=== PATIENT | female | born 1985 | race African-American/Black ===

== ENCOUNTER → 2017-12-12 08:30 | Outpatient (CLI) | payer BC, SELFPAY ==
[2017-12-12 10:36] LABS: Protein, Urine (Random) 127.7 mg/dL (<11.9); Protein:Creat Ratio 296 mg/g CRE (0-200)
== END ==
PROVIDERS: Family Provider Family Medicine; PCP Family Medicine; Visit Provider Internal Medicine Nephrology
DX: R80.9 Proteinuria, unspecified (principal)
CPT/HCPCS: 82570; 84156

== ENCOUNTER → 2017-12-12 15:54 | Outpatient (CLI) | payer BC, SELFPAY ==
[2017-12-12 18:19] LABS: Albumin, Serum 3.3 g/dL (3.2-5.0); BUN 15 mg/dL (7-18); BUN/Creat Ratio 15.5 RATIO (10-20); Calcium,Total 8.3 mg/dL (8.5-10.1); Chloride 114 mmol/L (98-107); Creatinine, Serum 0.97 mg/dL (0.55-1.02); EST Glomerular Filtration Rate 72 mL/min (>60); Est Glom Filt Rate - Afr Amer 87 mL/min (>60); Glucose 88 mg/dL (74-106); Phosphorus 2.9 mg/dL (2.5-4.9); Potassium 3.9 mmol/L (3.5-5.1); Sodium Level 142 mmol/L (136-145)
== END ==
PROVIDERS: Family Provider Family Medicine; PCP Family Medicine; Visit Provider Internal Medicine Nephrology
DX: R80.9 Proteinuria, unspecified (principal)
CPT/HCPCS: 36415; 80069

== ENCOUNTER → 2017-12-13 12:18 | Outpatient (CLI) | payer BC, SELFPAY ==
[2017-12-13 13:19] LABS: Absolute Lymphocyte Count 0.85 X10^3/ul (0.83-4.51); Absolute Neutrophil Count 2.1 X10^3/uL (2.0-7.7); Basophil# 0.01 X10^3/uL; Basophil% 0.3 % (0-1); Eosinophil# 0.16 X10^3/uL; Eosinophils% 4.6 % (0-5); Hematocrit 34.5 % (37-47); Hemoglobin 10.7 g/dl (12.0-15.0); Lymphocyte # 0.85 X10^3/ul (4.0); Lymphocyte % 24.4 % (19-41); Mean Corpuscular Hgb 23.7 pg (27.0-32.0); Mean Corpuscular Volume 76.3 fL (81-99); Mean Platelet Vol. 10.3 fl (6.2-12.0); Monocyte# 0.37 X10^3/uL; Monocyte% 10.6 % (0-10); Neutrophil # 2.09 X10^3/uL (2.7-7.7); Neutrophil % 59.8 % (47-70); Platelet Count 408 K/mm3 (150-450); RBC Distribution Width CV 17.1 % (11.6-14.6); RBC Distribution Width SD 47.3 fl (35.1-43.9); Red Blood Count 4.52 M/mm3 (4.2-5.4); White Blood Count 3.5 K/mm3 (4.4-11.0)
[2017-12-13 13:29] LABS: POSITIVE COUNT NO; POSITIVE DIFFERENTIAL NO; POSITIVE MORPHOLOGY NO
== END ==
PROVIDERS: Family Provider Family Medicine; PCP Family Medicine; Visit Provider Internal Medicine Nephrology
DX: R53.83 Other fatigue (principal)
CPT/HCPCS: 36415; 85025

== ENCOUNTER → 2018-02-06 07:30 | Outpatient (CLI) | payer BC, SELFPAY ==
[2018-02-06 10:06] LABS: Hematocrit 32.9 % (37-47); Hemoglobin 10.1 g/dl (12.0-15.0); Mean Corp Hgb Conc 30.7 g/gl (32-36); Mean Corpuscular Hgb 23.3 pg (27.0-32.0); Mean Corpuscular Volume 75.8 fL (81-99); Mean Platelet Vol. 10.4 fl (6.2-12.0); Platelet Count 465 K/mm3 (150-450); RBC Distribution Width CV 15.6 % (11.6-14.6); RBC Distribution Width SD 43.7 fl (35.1-43.9); Red Blood Count 4.34 M/mm3 (4.2-5.4)
[2018-02-06 10:12] LABS: Scan Indicated on CBC? Y/N NO
[2018-02-06 10:19] LABS: Protein, Urine (Random) 136.3 mg/dL (<11.9); Protein:Creat Ratio 863 mg/g CRE (0-200)
[2018-02-06 10:24] LABS: Albumin, Serum 3.5 g/dL (3.2-5.0); BUN 20 mg/dL (7-18); Calcium,Total 8.4 mg/dL (8.5-10.1); Chloride 111 mmol/L (98-107); Creatinine, Serum 0.95 mg/dL (0.55-1.02); EST Glomerular Filtration Rate 73 mL/min (>60); Est Glom Filt Rate - Afr Amer 88 mL/min (>60); Ferritin 70 ng/mL (8-252); Glucose 78 mg/dL (74-106); Iron 66 ug/dL (50-170); Iron Binding Capacity,Total 212 ug/dL (250-450); PERCENT IRON SATURATION 31.1 % (15.0-55.0); Potassium 4.3 mmol/L (3.5-5.1); Sodium Level 141 mmol/L (136-145)
[2018-02-07 11:51] LABS: Complement C3 102 mg/dL (82-167)
[2018-02-08 13:43] LABS: ANTINUCLEAR ANTIBODIES DIRECT Positive (Negative); Anti-dsDNA Ab 184 IU/mL (0-9)
== END ==
PROVIDERS: Family Provider Family Medicine; PCP Family Medicine; Visit Provider Internal Medicine Nephrology
DX: M32.14 Glomerular disease in systemic lupus erythematosus (principal); R80.9 Proteinuria, unspecified; D63.8 Anemia in other chronic diseases classified elsewhere
CPT/HCPCS: 36415; 80069; 82570; 82728; 83540; 83550; 84156; 85027; 86038; 86160; 86225

== ENCOUNTER → 2018-02-24 13:08 | Outpatient (CLI) | payer BC, SELFPAY ==
[2018-02-24 14:11] LABS: Absolute Lymphocyte Count 0.62 X10^3/ul (0.83-4.51); Absolute Neutrophil Count 3.9 X10^3/uL (2.0-7.7); Basophil# 0.01 X10^3/uL; Basophil% 0.2 % (0-1); Eosinophil# 0.08 X10^3/uL; Eosinophils% 1.6 % (0-5); Hematocrit 29.3 % (37-47); Hemoglobin 9.2 g/dl (12.0-15.0); Lymphocyte # 0.62 X10^3/ul (4.0); Lymphocyte % 12.1 % (19-41); Mean Corp Hgb Conc 31.4 g/gl (32-36); Mean Corpuscular Hgb 24.2 pg (27.0-32.0); Mean Corpuscular Volume 77.1 fL (81-99); Mean Platelet Vol. 11.3 fl (6.2-12.0); Monocyte% 9.8 % (0-10); Neutrophil % 76.1 % (47-70); POSITIVE COUNT NO; POSITIVE DIFFERENTIAL NO; POSITIVE MORPHOLOGY NO; Platelet Count 358 K/mm3 (150-450); Protein, Urine (Random) 73.4 mg/dL (<11.9); Protein:Creat Ratio 322 mg/g CRE (0-200); RBC Distribution Width CV 15.2 % (11.6-14.6); RBC Distribution Width SD 41.4 fl (35.1-43.9); White Blood Count 5.1 K/mm3 (4.4-11.0)
[2018-02-24 14:36] LABS: ALB/GLOB Ratio 0.8 RATIO (0.9-2.4); AST(SGOT) 11 U/L (15-37); Alanine Aminotransfer ALT/SGPT 10 U/L (13-56); Albumin, Serum 3.3 g/dL (3.2-5.0); Alkaline Phosphatase 74 U/L (45-117); Anion Gap 8 (5-15); BUN 14 mg/dL (7-18); BUN/Creat Ratio 11.2 RATIO (10-20); Chloride 107 mmol/L (98-107); Creatinine, Serum 1.25 mg/dL (0.55-1.02); EST Glomerular Filtration Rate 53 mL/min (>60); Est Glom Filt Rate - Afr Amer 64 mL/min (>60); Globulin 3.9 g/dL (2.2-4.2); Glucose 79 mg/dL (74-106); Potassium 4.4 mmol/L (3.5-5.1); Protein, Total 7.2 g/dL (6.4-8.2); Sodium Level 138 mmol/L (136-145)
[2018-02-24 14:43] LABS: Vitamin D,25 Hydroxy 35.5 ng/mL (29.95-100.01)
[2018-02-25 13:08] LABS: Complement C3 89 mg/dL (82-167)
[2018-02-28 11:25] LABS: Anti-dsDNA Ab 167 IU/mL (0-9)
== END ==
PROVIDERS: Family Provider Family Medicine; PCP Family Medicine; Visit Provider Internal Medicine Rheumatology
DX: M32.9 Systemic lupus erythematosus, unspecified (principal); Z79.52 Long term (current) use of systemic steroids; E55.9 Vitamin D deficiency, unspecified; I10 Essential (primary) hypertension
CPT/HCPCS: 36415; 80053; 82306; 82570; 84156; 85025; 86160; 86225

== ENCOUNTER → 2018-02-27 07:51 | Outpatient (CLI) | payer BC, SELFPAY ==
[2018-02-27 10:17] LABS: Ferritin 86 ng/mL (8-252); Iron 35 ug/dL (50-170); Iron Binding Capacity,Total 192 ug/dL (250-450); LDH 182 U/L (84-246); PERCENT IRON SATURATION 18.2 % (15.0-55.0)
== END ==
PROVIDERS: Family Provider Family Medicine; PCP Family Medicine; Visit Provider Internal Medicine Rheumatology
DX: M32.9 Systemic lupus erythematosus, unspecified (principal); I10 Essential (primary) hypertension; Z79.52 Long term (current) use of systemic steroids
CPT/HCPCS: 36415; 82728; 83540; 83550; 83615; 86880

== ENCOUNTER → 2018-05-29 16:36 | Outpatient (CLI) | payer BC, SELFPAY ==
[2018-05-29 14:49] LABS: Color, Urine Yellow (Yellow); Glucose, Dipstick Normal (Normal); Ketone-Dipstick Negative (Negative); Leukocyte Esterase-Dipstick 25 /ul (Negative); Nitrite-Dipstick Negative (Negative); Occult Blood-Urine 250 /ul (Negative); Protein-Dipstick 100 mg/dl (Negative); Urine Bilirubin Dipstick Negative (Negative); Urine Clarity Sl. Cloudy (Clear); Urine Urobilinogen Normal (Normal)
[2018-05-29 14:51] LABS: Absolute Lymphocyte Count 0.77 X10^3/ul (0.83-4.51); Absolute Neutrophil Count 1.9 X10^3/uL (2.0-7.7); Eosinophil# 0.14 X10^3/uL; Eosinophils% 4.5 % (0-5); Hematocrit 30.3 % (37-47); Hemoglobin 9.5 g/dl (12.0-15.0); Lymphocyte # 0.77 X10^3/ul (4.0); Lymphocyte % 24.5 % (19-41); Mean Corp Hgb Conc 31.4 g/gl (32-36); Mean Corpuscular Hgb 24.5 pg (27.0-32.0); Mean Corpuscular Volume 78.1 fL (81-99); Mean Platelet Vol. 10.7 fl (6.2-12.0); Monocyte# 0.38 X10^3/uL; Monocyte% 12.1 % (0-10); Neutrophil # 1.85 X10^3/uL (2.7-7.7); Neutrophil % 58.9 % (47-70); Platelet Count 375 K/mm3 (150-450); RBC Distribution Width CV 15.3 % (11.6-14.6); RBC Distribution Width SD 43.2 fl (35.1-43.9); Red Blood Count 3.88 M/mm3 (4.2-5.4); White Blood Count 3.1 K/mm3 (4.4-11.0)
[2018-05-29 14:55] LABS: POSITIVE COUNT NO; POSITIVE DIFFERENTIAL NO; POSITIVE MORPHOLOGY NO
[2018-05-29 15:00] LABS: Protein, Urine (Random) 147.7 mg/dL (<11.9); Protein:Creat Ratio 777 mg/g CRE (0-200)
[2018-05-29 15:02] LABS: ALB/GLOB Ratio 0.8 RATIO (0.9-2.4); AST(SGOT) 10 U/L (15-37); Alanine Aminotransfer ALT/SGPT 11 U/L (13-56); Albumin, Serum 3.1 g/dL (3.2-5.0); Alkaline Phosphatase 66 U/L (45-117); Anion Gap 7 (5-15); BUN 7 mg/dL (7-18); BUN/Creat Ratio 8.7 RATIO (10-20); Calcium,Total 8.3 mg/dL (8.5-10.1); Chloride 112 mmol/L (98-107); Creatinine, Serum 0.81 mg/dL (0.55-1.02); EST Glomerular Filtration Rate 88 mL/min (>60); Est Glom Filt Rate - Afr Amer 107 mL/min (>60); Globulin 3.8 g/dL (2.2-4.2); Glucose 82 mg/dL (74-106); Phosphorus 2.6 mg/dL (2.5-4.9); Protein, Total 6.9 g/dL (6.4-8.2); Sodium Level 142 mmol/L (136-145)
[2018-05-31 11:14] LABS: Anti-dsDNA Ab 153 IU/mL (0-9)
[2018-05-31 12:49] LABS: Complement C3 84 mg/dL (82-167)
== END ==
PROVIDERS: Family Provider Family Medicine; PCP Family Medicine; Visit Provider Internal Medicine Nephrology
DX: M32.14 Glomerular disease in systemic lupus erythematosus (principal); M32.9 Systemic lupus erythematosus, unspecified; I10 Essential (primary) hypertension; Z79.52 Long term (current) use of systemic steroids
CPT/HCPCS: 36415; 80053; 81002; 82570; 84100; 84156; 85025; 86160; 86225

== ENCOUNTER → 2018-08-15 14:06 | Outpatient (CLI) | payer BC, SELFPAY ==
[2018-08-15 15:37] LABS: Absolute Lymphocyte Count 0.62 X10^3/ul (0.83-4.51); Absolute Neutrophil Count 2.4 X10^3/uL (2.0-7.7); Basophil# 0.01 X10^3/uL; Basophil% 0.3 % (0-1); Eosinophil# 0.09 X10^3/uL; Eosinophils% 2.4 % (0-5); Hematocrit 33.5 % (37-47); Hemoglobin 10.2 g/dl (12.0-15.0); Lymphocyte # 0.62 X10^3/ul (4.0); Lymphocyte % 16.8 % (19-41); Mean Corp Hgb Conc 30.4 g/gl (32-36); Mean Corpuscular Volume 78.8 fL (81-99); Mean Platelet Vol. 10.6 fl (6.2-12.0); Monocyte# 0.56 X10^3/uL; Monocyte% 15.2 % (0-10); Neutrophil % 65.3 % (47-70); Platelet Count 373 K/mm3 (150-450); RBC Distribution Width CV 15.3 % (11.6-14.6); RBC Distribution Width SD 44.2 fl (35.1-43.9); Red Blood Count 4.25 M/mm3 (4.2-5.4); White Blood Count 3.7 K/mm3 (4.4-11.0)
[2018-08-15 15:43] LABS: POSITIVE COUNT NO; POSITIVE DIFFERENTIAL NO; POSITIVE MORPHOLOGY NO
[2018-08-15 15:53] LABS: ALB/GLOB Ratio 0.8 RATIO (0.9-2.4); AST(SGOT) 10 U/L (15-37); Alanine Aminotransfer ALT/SGPT 11 U/L (13-56); Albumin, Serum 3.2 g/dL (3.2-5.0); Alkaline Phosphatase 76 U/L (45-117); Anion Gap 6 (5-15); BUN 11 mg/dL (7-18); Calcium,Total 8.6 mg/dL (8.5-10.1); Chloride 110 mmol/L (98-107); Creatinine, Serum 0.84 mg/dL (0.55-1.02); EST Glomerular Filtration Rate 84 mL/min (>60); Est Glom Filt Rate - Afr Amer 101 mL/min (>60); Globulin 4.2 g/dL (2.2-4.2); Glucose 73 mg/dL (74-106); Potassium 3.8 mmol/L (3.5-5.1); Protein, Total 7.4 g/dL (6.4-8.2); Sodium Level 142 mmol/L (136-145)
[2018-08-15 16:01] LABS: Color, Urine Yellow (Yellow); Glucose, Dipstick Normal (Normal); Ketone-Dipstick 5 mg/dl (Negative); Leukocyte Esterase-Dipstick 25 /ul (Negative); Nitrite-Dipstick Negative (Negative); Occult Blood-Urine 25 /ul (Negative); Protein-Dipstick 100 mg/dl (Negative); Specific Gravity, Urine 1.025 (1.002-1.030); Urine Bilirubin Dipstick Negative (Negative); Urine Clarity Clear (Clear); Urine Urobilinogen Normal (Normal)
[2018-08-15 16:43] LABS: Protein, Urine (Random) 223.4 mg/dL (<11.9); Protein:Creat Ratio 757 mg/g CRE (0-200)
[2018-08-18 15:06] LABS: Complement C3 92 mg/dL (82-167)
[2018-08-18 16:28] LABS: Anti-dsDNA Ab 170 IU/mL (0-9)
== END ==
PROVIDERS: Family Provider Family Medicine; PCP Family Medicine; Referring Provider Internal Medicine Rheumatology; Visit Provider Internal Medicine Rheumatology
DX: M32.9 Systemic lupus erythematosus, unspecified (principal); I10 Essential (primary) hypertension; Z79.52 Long term (current) use of systemic steroids
CPT/HCPCS: 36415; 80053; 81002; 82570; 84156; 85025; 86160; 86225

== ENCOUNTER → 2018-10-23 13:02 | Outpatient (CLI) | payer BC, SELFPAY ==
[2018-10-23 14:29] LABS: Protein, Urine (Random) 53.9 mg/dL (<11.9); Protein:Creat Ratio 268 mg/g CRE (0-200)
[2018-10-23 14:46] LABS: Hematocrit 29.9 % (37-47); Hemoglobin 9.3 g/dl (12.0-15.0); Mean Corp Hgb Conc 31.1 g/gl (32-36); Mean Corpuscular Hgb 24.5 pg (27.0-32.0); Mean Corpuscular Volume 78.7 fL (81-99); Mean Platelet Vol. 10.8 fl (6.2-12.0); Platelet Count 389 K/mm3 (150-450); RBC Distribution Width CV 16.3 % (11.6-14.6); RBC Distribution Width SD 45.1 fl (35.1-43.9); White Blood Count 3.9 K/mm3 (4.4-11.0)
[2018-10-23 14:47] LABS: Scan Indicated on CBC? Y/N NO
[2018-10-23 15:00] LABS: Albumin, Serum 3.3 g/dL (3.2-5.0); BUN 14 mg/dL (7-18); BUN/Creat Ratio 17.7 RATIO (10-20); Calcium,Total 8.3 mg/dL (8.5-10.1); Chloride 106 mmol/L (98-107); Creatinine, Serum 0.79 mg/dL (0.55-1.02); EST Glomerular Filtration Rate 90 mL/min (>60); Est Glom Filt Rate - Afr Amer 109 mL/min (>60); Ferritin 70 ng/mL (8-252); Glucose 81 mg/dL (74-106); Iron 46 ug/dL (50-170); Iron Binding Capacity,Total 211 ug/dL (250-450); PERCENT IRON SATURATION 21.8 % (15.0-55.0); Phosphorus 3.7 mg/dL (2.5-4.9); Potassium 4.1 mmol/L (3.5-5.1); Sodium Level 140 mmol/L (136-145)
[2018-10-23 15:22] LABS: Vitamin D,25 Hydroxy 36.7 ng/mL (29.95-100.01)
[2018-10-25 14:24] LABS: Anti-dsDNA Ab 186 IU/mL (0-9)
== END ==
PROVIDERS: Family Provider Family Medicine; PCP Family Medicine; Referring Provider Internal Medicine Nephrology; Visit Provider Internal Medicine Nephrology
DX: M32.14 Glomerular disease in systemic lupus erythematosus (principal); E55.9 Vitamin D deficiency, unspecified; D63.8 Anemia in other chronic diseases classified elsewhere
CPT/HCPCS: 36415; 80069; 82306; 82570; 82728; 83540; 83550; 84156; 85027; 86225

== ENCOUNTER → 2018-12-11 16:17 | Outpatient (CLI) | payer BC, SELFPAY ==
[2018-12-11 17:43] LABS: Absolute Lymphocyte Count 0.86 X10^3/ul (0.83-4.51); Basophil# 0.02 X10^3/uL; Basophil% 0.5 % (0-1); Eosinophil# 0.04 X10^3/uL; Hematocrit 35.2 % (37-47); Hemoglobin 10.6 g/dl (12.0-15.0); Lymphocyte # 0.86 X10^3/ul (4.0); Lymphocyte % 20.7 % (19-41); Mean Corp Hgb Conc 30.1 g/gl (32-36); Mean Corpuscular Volume 79.8 fL (81-99); Mean Platelet Vol. 10.2 fl (6.2-12.0); Monocyte# 0.27 X10^3/uL; Monocyte% 6.5 % (0-10); Neutrophil # 2.96 X10^3/uL (2.7-7.7); Neutrophil % 71.1 % (47-70); Platelet Count 385 K/mm3 (150-450); RBC Distribution Width CV 15.5 % (11.6-14.6); Red Blood Count 4.41 M/mm3 (4.2-5.4); White Blood Count 4.2 K/mm3 (4.4-11.0)
[2018-12-11 17:46] LABS: POSITIVE COUNT NO; POSITIVE DIFFERENTIAL NO; POSITIVE MORPHOLOGY NO
[2018-12-11 17:56] LABS: Color, Urine Yellow (Yellow); Glucose, Dipstick Normal (Normal); Ketone-Dipstick 5 mg/dl (Negative); Leukocyte Esterase-Dipstick 100 /ul (Negative); Nitrite-Dipstick Negative (Negative); Occult Blood-Urine 150 /ul (Negative); Protein-Dipstick 500 mg/dl (Negative); Specific Gravity, Urine 1.025 (1.002-1.030); Urine Bilirubin Dipstick Negative (Negative); Urine Clarity Clear (Clear); Urine Urobilinogen Normal (Normal)
[2018-12-11 17:58] LABS: Vitamin D,25 Hydroxy 39.4 ng/mL (29.95-100.01)
[2018-12-11 18:01] LABS: ALB/GLOB Ratio 0.8 RATIO (0.9-2.4); AST(SGOT) 9 U/L (15-37); Alanine Aminotransfer ALT/SGPT 13 U/L (13-56); Albumin, Serum 3.6 g/dL (3.2-5.0); Alkaline Phosphatase 76 U/L (45-117); Anion Gap 9 (5-15); BUN 11 mg/dL (7-18); BUN/Creat Ratio 13.7 RATIO (10-20); Calcium,Total 8.5 mg/dL (8.5-10.1); Chloride 108 mmol/L (98-107); EST Glomerular Filtration Rate 89 mL/min (>60); Est Glom Filt Rate - Afr Amer 107 mL/min (>60); Globulin 4.5 g/dL (2.2-4.2); Glucose 83 mg/dL (74-106); Potassium 3.9 mmol/L (3.5-5.1); Protein, Total 8.1 g/dL (6.4-8.2); Protein, Urine (Random) 483.1 mg/dL (<11.9); Protein:Creat Ratio 1579 mg/g CRE (0-200); Sodium Level 140 mmol/L (136-145)
[2018-12-13 10:30] LABS: Complement C3 95 mg/dL (82-167)
[2018-12-14 08:53] LABS: Anti-dsDNA Ab 171 IU/mL (0-9)
== END ==
PROVIDERS: Family Provider Family Medicine; PCP Family Medicine; Referring Provider Internal Medicine Rheumatology; Visit Provider Internal Medicine Rheumatology
DX: M32.9 Systemic lupus erythematosus, unspecified (principal); I10 Essential (primary) hypertension; Z79.52 Long term (current) use of systemic steroids
CPT/HCPCS: 36415; 80053; 81002; 82306; 82570; 84156; 85025; 86160; 86225

== ENCOUNTER → 2018-12-20 16:24 | Outpatient (CLI) | payer BC, SELFPAY ==
[2018-05-29 14:04] VITALS: BMI 29.2
[2018-12-20 17:55] LABS: Protein, Urine (Random) 58.8 mg/dL (<11.9); Protein:Creat Ratio 206 mg/g CRE (0-200)
== END ==
PROVIDERS: Family Provider Family Medicine; PCP Family Medicine; Referring Provider Internal Medicine Nephrology; Visit Provider Internal Medicine Nephrology
DX: M32.14 Glomerular disease in systemic lupus erythematosus (principal)
CPT/HCPCS: 82570; 84156

== ENCOUNTER → 2019-01-19 16:41 | Outpatient (CLI) | payer BC, SELFPAY ==
[2019-01-19 18:37] LABS: Protein, Urine (Random) 100.3 mg/dL (<11.9); Protein:Creat Ratio 310 mg/g CRE (0-200)
== END ==
PROVIDERS: Family Provider Family Medicine; PCP Family Medicine; Referring Provider Internal Medicine Nephrology; Visit Provider Internal Medicine Nephrology
DX: M32.14 Glomerular disease in systemic lupus erythematosus (principal); D50.9 Iron deficiency anemia, unspecified
CPT/HCPCS: 36415; 82570; 84156

== ENCOUNTER → 2019-01-24 13:05 | Outpatient (CLI) | payer BC, SELFPAY ==
[2019-01-26 13:24] LABS: HPV Reflexed? NOT INDICATED
== END ==
PROVIDERS: PCP Family Medicine; Visit Provider Obstetrics & Gynecology
DX: Z12.4 Encounter for screening for malignant neoplasm of cervix (principal)
CPT/HCPCS: 88175; G0145

== ENCOUNTER → 2019-01-30 07:59 | Outpatient (CLI) | payer BC, SELFPAY ==
[2018-05-29 14:04] VITALS: BMI 29.2
[2019-01-30 10:19] LABS: Protein, Urine (Random) 71.2 mg/dL (<11.9); Protein:Creat Ratio 437 mg/g CRE (0-200)
[2019-01-30 10:25] LABS: Hematocrit 31.3 % (37-47); Hemoglobin 9.8 g/dl (12.0-15.0); Mean Corp Hgb Conc 31.3 g/gl (32-36); Mean Corpuscular Hgb 24.6 pg (27.0-32.0); Mean Corpuscular Volume 78.6 fL (81-99); Mean Platelet Vol. 10.9 fl (6.2-12.0); Platelet Count 328 K/mm3 (150-450); RBC Distribution Width CV 14.8 % (11.6-14.6); RBC Distribution Width SD 40.6 fl (35.1-43.9); Red Blood Count 3.98 M/mm3 (4.2-5.4); White Blood Count 3.6 K/mm3 (4.4-11.0)
[2019-01-30 10:28] LABS: Scan Indicated on CBC? Y/N NO
[2019-01-30 10:42] LABS: Albumin, Serum 3.2 g/dL (3.2-5.0); BUN 13 mg/dL (7-18); BUN/Creat Ratio 16.5 RATIO (10-20); Calcium,Total 8.4 mg/dL (8.5-10.1); Chloride 111 mmol/L (98-107); Creatinine, Serum 0.79 mg/dL (0.55-1.02); EST Glomerular Filtration Rate 90 mL/min (>60); Est Glom Filt Rate - Afr Amer 109 mL/min (>60); Ferritin 38 ng/mL (8-252); Glucose 88 mg/dL (74-106); Iron 57 ug/dL (50-170); Iron Binding Capacity,Total 240 ug/dL (250-450); PERCENT IRON SATURATION 23.8 % (15.0-55.0); Phosphorus 2.9 mg/dL (2.5-4.9); Potassium 3.8 mmol/L (3.5-5.1); Sodium Level 140 mmol/L (136-145)
[2019-01-31 15:18] LABS: Anti-dsDNA Ab 135 IU/mL (0-9)
== END ==
PROVIDERS: Family Provider Family Medicine; PCP Family Medicine; Referring Provider Internal Medicine Nephrology; Visit Provider Internal Medicine Nephrology
DX: M32.14 Glomerular disease in systemic lupus erythematosus (principal); D50.9 Iron deficiency anemia, unspecified
CPT/HCPCS: 36415; 80069; 82570; 82728; 83540; 83550; 84156; 85027; 86225

== ENCOUNTER → 2019-02-16 07:52 | Outpatient (CLI) | payer BC, SELFPAY ==
[2019-02-16 08:01] VITALS: BP 134/92; PULSE 67; RESP 16; TEMP 36.9; O2SAT 100; BMI 26.4
[2019-02-16 08:13] VITALS: BMI 26.4
== END ==
PROVIDERS: Family Provider Family Medicine; PCP Family Medicine; Referring Provider Internal Medicine Nephrology; Visit Provider Internal Medicine Nephrology
DX: D64.9 Anemia, unspecified (principal)
CPT/HCPCS: 96365; J1756; J7050; A4216

== ENCOUNTER → 2019-02-19 07:57 | Outpatient (CLI) | payer BC, SELFPAY ==
[2019-02-16 08:13] VITALS: BMI 26.4
[2019-02-19 08:08] VITALS: BP 118/69; PULSE 104; RESP 16; TEMP 36.6; O2SAT 100; BMI 26.4
== END ==
PROVIDERS: Family Provider Family Medicine; PCP Family Medicine; Referring Provider Internal Medicine Nephrology; Visit Provider Internal Medicine Nephrology
DX: D64.9 Anemia, unspecified (principal)
CPT/HCPCS: 96365; J1756; J7050; A4216

== ENCOUNTER → 2019-03-01 07:55 | Outpatient (CLI) | payer BC, SELFPAY ==
[2019-02-16 08:13] VITALS: BMI 26.4
[2019-02-19 08:08] VITALS: BMI 26.4
[2019-03-01 08:18] VITALS: BP 109/70; PULSE 80; RESP 16; TEMP 37.2; O2SAT 100; BMI 26.4
== END ==
PROVIDERS: Family Provider Family Medicine; PCP Family Medicine; Referring Provider Internal Medicine Nephrology; Visit Provider Internal Medicine Nephrology
DX: D64.9 Anemia, unspecified (principal)
CPT/HCPCS: 96365; J1756; J7050

== ENCOUNTER → 2019-04-04 16:15 | Outpatient (CLI) | payer BC, SELFPAY ==
[2019-03-01 08:18] VITALS: BMI 26.4
[2019-04-04 18:25] LABS: Color, Urine Yellow (Yellow); Glucose, Dipstick Normal (Normal); Ketone-Dipstick 5 mg/dl (Negative); Leukocyte Esterase-Dipstick 25 /ul (Negative); Nitrite-Dipstick Negative (Negative); Occult Blood-Urine 25 /ul (Negative); Protein-Dipstick 100 mg/dl (Negative); Urine Clarity Sl. Cloudy (Clear); Urine Urobilinogen 1 mg/dl (Normal)
[2019-04-04 18:26] LABS: Absolute Neutrophil Count 2.8 X10^3/uL (2.0-7.7); Basophil# 0.03 X10^3/uL; Basophil% 0.8 % (0-1); Eosinophil# 0.12 X10^3/uL; Hematocrit 34.2 % (37-47); Hemoglobin 10.5 g/dl (12.0-15.0); Lymphocyte % 15.2 % (19-41); Mean Corp Hgb Conc 30.7 g/gl (32-36); Mean Corpuscular Hgb 24.7 pg (27.0-32.0); Mean Corpuscular Volume 80.5 fL (81-99); Mean Platelet Vol. 9.9 fl (6.2-12.0); Monocyte# 0.42 X10^3/uL; Monocyte% 10.7 % (0-10); Neutrophil # 2.77 X10^3/uL (2.7-7.7); Neutrophil % 70.3 % (47-70); Platelet Count 352 K/mm3 (150-450); RBC Distribution Width SD 46.8 fl (35.1-43.9); Red Blood Count 4.25 M/mm3 (4.2-5.4); White Blood Count 3.9 K/mm3 (4.4-11.0)
[2019-04-04 18:27] LABS: Differential Indicated SCAN CRITERIA MET; POSITIVE COUNT NO; POSITIVE DIFFERENTIAL YES; POSITIVE MORPHOLOGY NO
[2019-04-04 18:28] LABS: Urine Bilirubin Dipstick 1 mg/dL (Negative)
[2019-04-04 18:38] LABS: ALB/GLOB Ratio 0.8 RATIO (0.9-2.4); AST(SGOT) 13 U/L (15-37); Alanine Aminotransfer ALT/SGPT 15 U/L (13-56); Albumin, Serum 3.2 g/dL (3.2-5.0); Alkaline Phosphatase 80 U/L (45-117); Anion Gap 6 (5-15); BUN 15 mg/dL (7-18); Calcium,Total 8.4 mg/dL (8.5-10.1); Chloride 114 mmol/L (98-107); Creatinine, Serum 1.07 mg/dL (0.55-1.02); EST Glomerular Filtration Rate 63 mL/min (>60); Est Glom Filt Rate - Afr Amer 77 mL/min (>60); Globulin 4.1 g/dL (2.2-4.2); Glucose 72 mg/dL (74-106); Phosphorus 1.6 mg/dL (2.5-4.9); Protein, Total 7.3 g/dL (6.4-8.2); Sodium Level 145 mmol/L (136-145)
[2019-04-04 19:16] LABS: Protein, Urine (Random) 149.9 mg/dL (<11.9); Protein:Creat Ratio 456 mg/g CRE (0-200)
[2019-04-04 19:23] LABS: Differential Comment SCANNED
[2019-04-06 11:14] LABS: Complement C3 89 mg/dL (82-167)
[2019-04-06 12:32] LABS: Anti-dsDNA Ab 129 IU/mL (0-9)
== END ==
PROVIDERS: Family Provider Family Medicine; PCP Family Medicine; Referring Provider Internal Medicine Nephrology; Visit Provider Internal Medicine Nephrology
DX: M32.14 Glomerular disease in systemic lupus erythematosus (principal); R80.9 Proteinuria, unspecified; M32.9 Systemic lupus erythematosus, unspecified; I10 Essential (primary) hypertension; Z79.52 Long term (current) use of systemic steroids
CPT/HCPCS: 36415; 80053; 81002; 82570; 84100; 84156; 85025; 86160; 86225

== ENCOUNTER → 2019-05-29 14:30 | Outpatient (CLI) | payer BC, SELFPAY ==
[2019-03-01 08:18] VITALS: BMI 26.4
[2019-05-29 17:31] LABS: Hematocrit 31.5 % (37-47); Hemoglobin 9.9 g/dL (12.0-15.0); Mean Corp Hgb Conc 31.4 g/dL (32-36); Mean Corpuscular Hgb 25.8 pg (27.0-32.0); Mean Corpuscular Volume 82.2 fL (81-99); Mean Platelet Vol. 10.3 fl (6.2-12.0); Platelet Count 307 K/mm3 (150-450); RBC Distribution Width CV 14.6 % (11.6-14.6); RBC Distribution Width SD 43.3 fl (35.1-43.9); Red Blood Count 3.83 M/mm3 (4.2-5.4); White Blood Count 3.8 K/mm3 (4.4-11.0)
[2019-05-29 18:00] LABS: Protein, Urine (Random) 19.5 mg/dL (<11.9); Protein:Creat Ratio 107 mg/g CRE (0-200)
[2019-05-29 18:03] LABS: Vitamin D,25 Hydroxy 33.6 ng/mL (29.95-100.01)
[2019-05-29 18:07] LABS: Albumin, Serum 3.3 g/dL (3.2-5.0); BUN 22 mg/dL (7-18); BUN/Creat Ratio 16.5 RATIO (10-20); Calcium,Total 8.3 mg/dL (8.5-10.1); Chloride 106 mmol/L (98-107); Creatinine, Serum 1.33 mg/dL (0.55-1.02); EST Glomerular Filtration Rate 49 mL/min (>60); Est Glom Filt Rate - Afr Amer 59 mL/min (>60); Ferritin 209 ng/mL (8-252); Glucose 72 mg/dL (74-106); Iron 54 ug/dL (50-170); Iron Binding Capacity,Total 184 ug/dL (250-450); PERCENT IRON SATURATION 29.3 % (15.0-55.0); Phosphorus 2.8 mg/dL (2.5-4.9); Potassium 3.8 mmol/L (3.5-5.1); Sodium Level 137 mmol/L (136-145)
== END ==
PROVIDERS: Family Provider Family Medicine; PCP Family Medicine; Referring Provider Internal Medicine Nephrology; Visit Provider Internal Medicine Nephrology
DX: M32.14 Glomerular disease in systemic lupus erythematosus (principal); D50.9 Iron deficiency anemia, unspecified; E55.9 Vitamin D deficiency, unspecified; R80.9 Proteinuria, unspecified
CPT/HCPCS: 36415; 80069; 82306; 82570; 82728; 83540; 83550; 84156; 85027

== ENCOUNTER → 2019-07-23 14:19 | Outpatient (CLI) | payer BC, SELFPAY ==
[2019-03-01 08:18] VITALS: BMI 26.4
[2019-07-23 17:26] LABS: Absolute Lymphocyte Count 0.71 X10^3/uL (0.83-4.51); Absolute Neutrophil Count 2.6 X10^3/uL (2.0-7.7); Basophil# 0.02 X10^3/uL; Basophil% 0.5 % (0-1); Eosinophil# 0.05 X10^3/uL; Eosinophils% 1.4 % (0-5); Hematocrit 30.8 % (37-47); Hemoglobin 9.4 g/dL (12.0-15.0); Lymphocyte # 0.71 X10^3/ul (4.0); Lymphocyte % 19.2 % (19-41); Mean Corp Hgb Conc 30.5 g/dL (32-36); Mean Corpuscular Hgb 25.1 pg (27.0-32.0); Mean Corpuscular Volume 82.1 fL (81-99); Mean Platelet Vol. 11.8 fl (6.2-12.0); Monocyte# 0.31 X10^3/uL; Monocyte% 8.4 % (0-10); NRBC Flagged by Analyzer 0 % (0-5); Neutrophil # 2.58 X10^3/uL (2.7-7.7); Platelet Count 331 K/mm3 (150-450); RBC Distribution Width CV 15.4 % (11.6-14.6); RBC Distribution Width SD 45.8 fl (35.1-43.9); Red Blood Count 3.75 M/mm3 (4.2-5.4); White Blood Count 3.7 K/mm3 (4.4-11.0)
[2019-07-23 17:40] LABS: Color, Urine Yellow (Yellow); Glucose, Dipstick Normal (Normal); Ketone-Dipstick Negative (Negative); Leukocyte Esterase-Dipstick 500 /ul (Negative); Nitrite-Dipstick Negative (Negative); Occult Blood-Urine 25 /ul (Negative); Protein-Dipstick 100 mg/dl (Negative); Urine Bilirubin Dipstick Negative (Negative); Urine Clarity Sl. Cloudy (Clear); Urine Urobilinogen Normal (Normal)
[2019-07-23 17:41] LABS: ALB/GLOB Ratio 0.9 RATIO (0.9-2.4); AST(SGOT) 15 U/L (15-37); Alanine Aminotransfer ALT/SGPT 15 U/L (13-56); Albumin, Serum 3.5 g/dL (3.2-5.0); Alkaline Phosphatase 64 U/L (45-117); Anion Gap 8 (5-15); BUN 10 mg/dL (7-18); BUN/Creat Ratio 13.2 RATIO (10-20); Calcium,Total 8.2 mg/dL (8.5-10.1); Chloride 109 mmol/L (98-107); Creatinine, Serum 0.76 mg/dL (0.55-1.02); EST Glomerular Filtration Rate 94 mL/min (>60); Est Glom Filt Rate - Afr Amer 114 mL/min (>60); Glucose 78 mg/dL (74-106); Potassium 3.3 mmol/L (3.5-5.1); Protein, Total 7.5 g/dL (6.4-8.2); Protein, Urine (Random) 137.6 mg/dL (<11.9); Protein:Creat Ratio 581 mg/g CRE (0-200); Sodium Level 141 mmol/L (136-145)
[2019-07-25 15:22] LABS: Anti-dsDNA Ab 115 IU/mL (0-9); Complement C3 79 mg/dL (82-167)
== END ==
PROVIDERS: Family Provider Family Medicine; PCP Family Medicine; Referring Provider Internal Medicine Rheumatology; Visit Provider Internal Medicine Rheumatology
DX: M32.9 Systemic lupus erythematosus, unspecified (principal); I10 Essential (primary) hypertension; Z79.52 Long term (current) use of systemic steroids; M32.14 Glomerular disease in systemic lupus erythematosus
CPT/HCPCS: 36415; 80053; 81002; 82570; 84156; 85025; 86160; 86225

== ENCOUNTER → 2019-09-25 11:49 | Outpatient (CLI) | payer BC, SELFPAY ==
[2019-03-01 08:18] VITALS: BMI 26.4
[2019-09-25 13:40] LABS: Hematocrit 34.5 % (37-47); Hemoglobin 10.7 g/dL (12.0-15.0); Mean Corpuscular Volume 83.9 fL (81-99); Platelet Count 336 K/mm3 (150-450); RBC Distribution Width CV 14.3 % (11.6-14.6); RBC Distribution Width SD 43.7 fl (35.1-43.9); Red Blood Count 4.11 M/mm3 (4.2-5.4); White Blood Count 6.9 K/mm3 (4.4-11.0)
[2019-09-25 13:56] LABS: Albumin, Serum 3.4 g/dL (3.2-5.0); BUN 11 mg/dL (7-18); BUN/Creat Ratio 11.8 RATIO (10-20); Calcium,Total 8.6 mg/dL (8.5-10.1); Chloride 109 mmol/L (98-107); Creatinine, Serum 0.93 mg/dL (0.55-1.02); EST Glomerular Filtration Rate 74 mL/min (>60); Est Glom Filt Rate - Afr Amer 89 mL/min (>60); Glucose 84 mg/dL (74-106); Phosphorus 2.9 mg/dL (2.5-4.9); Potassium 4.3 mmol/L (3.5-5.1); Sodium Level 138 mmol/L (136-145)
== END ==
PROVIDERS: Family Provider Family Medicine; PCP Family Medicine; Referring Provider Internal Medicine Nephrology; Visit Provider Internal Medicine Nephrology
DX: M32.14 Glomerular disease in systemic lupus erythematosus (principal)
CPT/HCPCS: 36415; 80069; 85027

== ENCOUNTER → 2019-09-26 11:59 | Outpatient (CLI) | payer BC, SELFPAY ==
[2019-03-01 08:18] VITALS: BMI 26.4
[2019-09-26 13:34] LABS: Protein:Creat Ratio 416 mg/g CRE (0-200)
== END ==
PROVIDERS: Family Provider Family Medicine; PCP Family Medicine; Visit Provider Internal Medicine Nephrology
DX: M32.14 Glomerular disease in systemic lupus erythematosus (principal)
CPT/HCPCS: 82570; 84156

== ENCOUNTER → 2019-11-02 11:28 | Outpatient (CLI) | payer BC, SELFPAY ==
[2019-03-01 08:18] VITALS: BMI 26.4
[2019-11-02 14:13] LABS: Color, Urine Yellow (Yellow); Glucose, Dipstick Normal (Normal); Ketone-Dipstick Negative (Negative); Leukocyte Esterase-Dipstick 25 /ul (Negative); Nitrite-Dipstick Negative (Negative); Occult Blood-Urine 10 /ul (Negative); Protein-Dipstick Negative (Negative); Specific Gravity, Urine 1.015 (1.002-1.030); Urine Bilirubin Dipstick Negative (Negative); Urine Clarity Clear (Clear); Urine Urobilinogen Normal (Normal)
[2019-11-02 14:15] LABS: Absolute Lymphocyte Count 0.47 X10^3/uL (0.83-4.51); Absolute Neutrophil Count 6.4 X10^3/uL (2.0-7.7); Basophil# 0.05 X10^3/uL; Basophil% 0.6 % (0-1); Eosinophil# 0.14 X10^3/uL; Eosinophils% 1.8 % (0-5); Hematocrit 38.1 % (37-47); Hemoglobin 11.5 g/dL (12.0-15.0); Lymphocyte # 0.47 X10^3/ul (4.0); Mean Corp Hgb Conc 30.2 g/dL (32-36); Mean Corpuscular Hgb 25.8 pg (27.0-32.0); Mean Corpuscular Volume 85.4 fL (81-99); Mean Platelet Vol. 9.9 fl (6.2-12.0); Monocyte# 0.76 X10^3/uL; Monocyte% 9.6 % (0-10); NRBC Flagged by Analyzer 0 % (0-5); Neutrophil # 6.35 X10^3/uL (2.7-7.7); Neutrophil % 80.6 % (47-70); POSITIVE DIFFERENTIAL YES; Platelet Count 405 K/mm3 (150-450); RBC Distribution Width CV 14.3 % (11.6-14.6); RBC Distribution Width SD 44.9 fl (35.1-43.9); Red Blood Count 4.46 M/mm3 (4.2-5.4); White Blood Count 7.9 K/mm3 (4.4-11.0)
[2019-11-02 14:18] LABS: Differential Indicated SCAN CRITERIA MET
[2019-11-02 14:37] LABS: ALB/GLOB Ratio 0.8 RATIO (0.9-2.4); AST(SGOT) 10 U/L (15-37); Alanine Aminotransfer ALT/SGPT 17 U/L (13-56); Albumin, Serum 3.1 g/dL (3.2-5.0); Alkaline Phosphatase 74 U/L (45-117); Anion Gap 5 (5-15); BUN 11 mg/dL (7-18); BUN/Creat Ratio 9.8 RATIO (10-20); Calcium,Total 8.7 mg/dL (8.5-10.1); Chloride 108 mmol/L (98-107); Creatinine, Serum 1.12 mg/dL (0.55-1.02); EST Glomerular Filtration Rate 60 mL/min (>60); Est Glom Filt Rate - Afr Amer 72 mL/min (>60); Globulin 4.1 g/dL (2.2-4.2); Glucose 82 mg/dL (74-106); Potassium 3.7 mmol/L (3.5-5.1); Protein, Total 7.2 g/dL (6.4-8.2); Sodium Level 138 mmol/L (136-145)
[2019-11-02 14:38] LABS: Protein, Urine (Random) 22.7 mg/dL (<11.9); Protein:Creat Ratio 194 mg/g CRE (0-200)
[2019-11-03 15:31] LABS: Complement C3 95 mg/dL (82-167)
[2019-11-06 10:34] LABS: Anti-dsDNA Ab 116 IU/mL (0-9)
== END ==
PROVIDERS: Family Provider Family Medicine; PCP Family Medicine; Referring Provider Internal Medicine Rheumatology; Visit Provider Internal Medicine Rheumatology
DX: I10 Essential (primary) hypertension (principal); M32.9 Systemic lupus erythematosus, unspecified; Z79.52 Long term (current) use of systemic steroids
CPT/HCPCS: 36415; 80053; 81002; 82570; 84156; 85025; 86160; 86225

== ENCOUNTER → 2019-12-26 09:50 | Outpatient (CLI) | payer BC, SELFPAY ==
[2019-03-01 08:18] VITALS: BMI 26.4
[2019-12-26 16:01] LABS: Color, Urine Yellow (Yellow); Glucose, Dipstick Normal (Normal); Ketone-Dipstick 15 mg/dl (Negative); Leukocyte Esterase-Dipstick 25 /ul (Negative); Nitrite-Dipstick Negative (Negative); Occult Blood-Urine 25 /ul (Negative); Protein-Dipstick 15 mg/dl (Negative); Urine Bilirubin Dipstick Negative (Negative); Urine Clarity Sl. Cloudy (Clear); Urine Urobilinogen Normal (Normal)
[2019-12-26 16:03] LABS: Absolute Lymphocyte Count 0.64 X10^3/uL (0.83-4.51); Absolute Neutrophil Count 3.2 X10^3/uL (2.0-7.7); Basophil# 0.03 X10^3/uL; Basophil% 0.7 % (0-1); Eosinophil# 0.27 X10^3/uL; Eosinophils% 5.9 % (0-5); Hematocrit 32.8 % (37-47); Hemoglobin 9.8 g/dL (12.0-15.0); Lymphocyte # 0.64 X10^3/ul (4.0); Lymphocyte % 14.1 % (19-41); Mean Corp Hgb Conc 29.9 g/dL (32-36); Mean Corpuscular Hgb 24.6 pg (27.0-32.0); Mean Corpuscular Volume 82.4 fL (81-99); Monocyte# 0.44 X10^3/uL; Monocyte% 9.7 % (0-10); NRBC Flagged by Analyzer 0 % (0-5); Neutrophil # 3.16 X10^3/uL (2.7-7.7); Neutrophil % 69.4 % (47-70); Platelet Count 412 K/mm3 (150-450); RBC Distribution Width CV 14.7 % (11.6-14.6); RBC Distribution Width SD 44.2 fl (35.1-43.9); Red Blood Count 3.98 M/mm3 (4.2-5.4); White Blood Count 4.6 K/mm3 (4.4-11.0)
[2019-12-26 16:52] LABS: ALB/GLOB Ratio 0.7 RATIO (0.9-2.4); AST(SGOT) 11 U/L (15-37); Alanine Aminotransfer ALT/SGPT 11 U/L (13-56); Albumin, Serum 2.9 g/dL (3.2-5.0); Alkaline Phosphatase 61 U/L (45-117); Anion Gap 8 (5-15); BUN 16 mg/dL (7-18); BUN/Creat Ratio 19.2 RATIO (10-20); Calcium,Total 8.5 mg/dL (8.5-10.1); Chloride 112 mmol/L (98-107); Cholesterol 145 mg/dL (200); Creatinine, Serum 0.83 mg/dL (0.55-1.02); EST Glomerular Filtration Rate 84 mL/min (>60); Est Glom Filt Rate - Afr Amer 102 mL/min (>60); Globulin 4.2 g/dL (2.2-4.2); Glucose 76 mg/dL (74-106); High Density Lipoprotein 37 mg/dL; Potassium 3.7 mmol/L (3.5-5.1); Protein, Total 7.1 g/dL (6.4-8.2); Sodium Level 143 mmol/L (136-145); Triglycerides 72 mg/dL; Very Low Density Lipoprotein 14 mg/dL (5-40); Vitamin D,25 Hydroxy 34.2 ng/mL
[2019-12-26 18:19] LABS: BNP,B-Type NATRIURETIC PEPTIDE 46.5 pg/mL (0-100)
[2019-12-30 03:01] LABS: Red Blood Cell Count Test/G6PD 3.89 x10E6/uL (3.77-5.28)
[2019-12-31 11:55] LABS: G6PD Quant Test 293 (146-376)
== END ==
LOC: BFHLAB 12:06 → MTLAB 12:16
PROVIDERS: Nurse Practitioner Family; PCP Family Medicine; Referring Provider Family Medicine; Visit Provider Family Medicine
DX: R53.82 Chronic fatigue, unspecified (principal); M62.81 Muscle weakness (generalized); R68.82 Decreased libido; E66.9 Obesity, unspecified; K13.70 Unspecified lesions of oral mucosa
CPT/HCPCS: 36415; 80053; 80061; 81002; 82306; 82955; 83880; 85025; 87210

== ENCOUNTER → 2020-03-04 12:23 | Outpatient (CLI) | payer BC, SELFPAY ==
[2019-03-01 08:18] VITALS: BMI 26.4
[2020-03-04 15:04] LABS: Absolute Lymphocyte Count 0.67 X10^3/uL (0.83-4.51); Absolute Neutrophil Count 5.5 X10^3/uL (2.0-7.7); Basophil# 0.05 X10^3/uL; Basophil% 0.7 % (0-1); Color, Urine Yellow (Yellow); Eosinophil# 0.09 X10^3/uL; Eosinophils% 1.3 % (0-5); Glucose, Dipstick Normal (Normal); Hematocrit 29.4 % (37-47); Hemoglobin 9.1 g/dL (12.0-15.0); Ketone-Dipstick Negative (Negative); Leukocyte Esterase-Dipstick 25 /ul (Negative); Lymphocyte # 0.67 X10^3/ul (4.0); Mean Corpuscular Hgb 25.4 pg (27.0-32.0); Mean Corpuscular Volume 82.1 fL (81-99); Mean Platelet Vol. 10.3 fl (6.2-12.0); Monocyte# 0.36 X10^3/uL; Monocyte% 5.4 % (0-10); NRBC Flagged by Analyzer 0 % (0-5); Neutrophil # 5.49 X10^3/uL (2.7-7.7); Nitrite-Dipstick Negative (Negative); Occult Blood-Urine Negative /ul (Negative); Platelet Count 474 K/mm3 (150-450); Protein-Dipstick 15 mg/dl (Negative); RBC Distribution Width CV 16.2 % (11.6-14.6); RBC Distribution Width SD 48.4 fl (35.1-43.9); Red Blood Count 3.58 M/mm3 (4.2-5.4); Specific Gravity, Urine 1.015 (1.002-1.030); Urine Bilirubin Dipstick Negative (Negative); Urine Clarity Clear (Clear); Urine Urobilinogen Normal (Normal); White Blood Count 6.7 K/mm3 (4.4-11.0)
[2020-03-04 15:21] LABS: Protein, Urine (Random) 41.7 mg/dL (<11.9); Protein:Creat Ratio 159 mg/g CRE (0-200)
[2020-03-04 15:22] LABS: ALB/GLOB Ratio 0.7 RATIO (0.9-2.4); AST(SGOT) 10 U/L (15-37); Alanine Aminotransfer ALT/SGPT 12 U/L (13-56); Albumin, Serum 2.8 g/dL (3.2-5.0); Alkaline Phosphatase 66 U/L (45-117); Anion Gap 10 (5-15); BUN 12 mg/dL (7-18); BUN/Creat Ratio 14.9 RATIO (10-20); Calcium,Total 8.2 mg/dL (8.5-10.1); Chloride 110 mmol/L (98-107); Creatinine, Serum 0.81 mg/dL (0.55-1.02); EST Glomerular Filtration Rate 87 mL/min (>60); Est Glom Filt Rate - Afr Amer 106 mL/min (>60); Ferritin 233 ng/mL (8-252); Globulin 4.1 g/dL (2.2-4.2); Glucose 91 mg/dL (74-106); Iron 90 ug/dL (50-170); Iron Binding Capacity,Total 157 ug/dL (250-450); PERCENT IRON SATURATION 57.3 % (15.0-55.0); Phosphorus 2.4 mg/dL (2.5-4.9); Potassium 3.2 mmol/L (3.5-5.1); Protein, Total 6.9 g/dL (6.4-8.2); Sodium Level 146 mmol/L (136-145)
[2020-03-06 11:23] LABS: Complement C3 86 mg/dL (82-167)
[2020-03-07 00:47] LABS: Anti-dsDNA Ab 109 IU/mL (0-9)
== END ==
PROVIDERS: Family Provider Family Medicine; PCP Family Medicine; Referring Provider Internal Medicine Nephrology; Visit Provider Internal Medicine Nephrology
DX: D50.9 Iron deficiency anemia, unspecified (principal); M32.14 Glomerular disease in systemic lupus erythematosus; M32.9 Systemic lupus erythematosus, unspecified; I10 Essential (primary) hypertension; Z79.52 Long term (current) use of systemic steroids
CPT/HCPCS: 36415; 80053; 81002; 82570; 82728; 83540; 83550; 84100; 84156; 85025; 86160; 86225

== ENCOUNTER → 2020-04-08 10:09 | Outpatient (CLI) | payer BC, SELFPAY ==
[2019-03-01 08:18] VITALS: BMI 26.4
[2020-04-08 12:26] LABS: Hematocrit 36.4 % (37-47); Hemoglobin 11.1 g/dL (12.0-15.0); Mean Corp Hgb Conc 30.5 g/dL (32-36); Mean Corpuscular Hgb 26.3 pg (27.0-32.0); Mean Corpuscular Volume 86.3 fL (81-99); Mean Platelet Vol. 9.9 fl (6.2-12.0); Platelet Count 387 K/mm3 (150-450); RBC Distribution Width CV 15.5 % (11.6-14.6); RBC Distribution Width SD 48.8 fl (35.1-43.9); Red Blood Count 4.22 M/mm3 (4.2-5.4); White Blood Count 6.7 K/mm3 (4.4-11.0)
[2020-04-08 12:36] LABS: BUN 8 mg/dL (7-18); Calcium,Total 8.4 mg/dL (8.5-10.1); Chloride 106 mmol/L (98-107); EST Glomerular Filtration Rate 88 mL/min (>60); Est Glom Filt Rate - Afr Amer 106 mL/min (>60); Glucose 91 mg/dL (74-106); Phosphorus 2.7 mg/dL (2.5-4.9); Sodium Level 137 mmol/L (136-145)
== END ==
PROVIDERS: PCP Family Medicine; Referring Provider Internal Medicine Nephrology; Visit Provider Internal Medicine Nephrology
DX: D50.9 Iron deficiency anemia, unspecified (principal); M32.14 Glomerular disease in systemic lupus erythematosus
CPT/HCPCS: 36415; 80069; 85027

== ENCOUNTER → 2020-05-08 12:49 | Outpatient (CLI) | payer BC, SELFPAY ==
[2019-03-01 08:18] VITALS: BMI 26.4
--- NOTE | 2020-05-08 | TOBX_PTH ---
PATIENT: COCO MIRANDA LOC: [facility] U#:[id number] AGE/SX: 40/F ROOM: RE05/08/[address]: Dr. Justice Asencio DDS : 1985 BED: DIS: SPEC #: [id number] RECD: 05/08/20 12:24 STATUS: RUSS JOSE #: [id number] MONIQUE: 05/08/20 00:[address]: Justice Asencio DEPT: SURGICAL PATHOLOGY RECD BY: Devyn Price ENTERED: 05/08/20 12:52 SP TYPE: TONGUE BX OTHR DR: Dr. Kt Arroyo, Tissues: Tongue, NOS Procedures: Special Stain Group II Special Stain Group I PAS Stain (control) Surgery Specimen Level IV AFB Stain (control) GMS Stain (control) HEADER OPERATION: Tongue biopsy PRE-OP DIAGNOSIS: Lupus TISSUE SUBMITTED: Tongue biopsy MICROSCOPIC DIAGNOSIS Tongue, biopsy: Squamous mucosa showing ulcer, moderate acute and chronic inflammation and granulation tissue. These pathologic changes are not specific. Special stains (GMS, AFB and PAS) are negative for fungi or microbacterial organisms; matched controls are appropriate. See comment. SEGUN:tari 05/15/20 COMMENT The specimen is sent to [facility] for expert opinion, reviewed by Dr. Natarajan and above diagnosis is rendered. Additional immunohistochemical stains performed at [facility] for Spirochete and HHV8 are negative. All stains are performed with appropriate matched controls. The complete report is viewable in patient's EMR. Correlation with clinical, laboratory findings and appropriate follow up are necessary. Case has been reviewed in consultation with Dr. Chua who concurs with the above diagnosis. IDC:AM MICROSCOPIC DESCRIPTION Slides are reviewed. GROSS DESCRIPTION Received in fixative is one container labeled with the patient's name and designated tongue. The specimen consists of a piece of lopez mucosal tissue measuring 0.5 x 0.4 x 0.1 cm. The entire specimen is submitted in one cassette. / SEGUN:tari 05/08/20 TC:2 CPT: 39851, 40182 x2, 10884
== END ==
PROVIDERS: PCP Family Medicine; Referring Provider Dentist Oral and Maxillofacial Surgery; Visit Provider Dentist Oral and Maxillofacial Surgery
DX: M35.9 Systemic involvement of connective tissue, unspecified (principal)
CPT/HCPCS: 88305; 88312; 88313

== ENCOUNTER → 2020-06-25 12:48 | Outpatient (CLI) | payer BC, SELFPAY ==
[2019-03-01 08:18] VITALS: BMI 26.4
[2020-06-25 15:59] LABS: Color, Urine Yellow (Yellow); Glucose, Dipstick Normal (Normal); Ketone-Dipstick Negative (Negative); Leukocyte Esterase-Dipstick 500 /ul (Negative); Nitrite-Dipstick Negative (Negative); Occult Blood-Urine 250 /ul (Negative); Protein-Dipstick 30 mg/dl (Negative); Urine Bilirubin Dipstick Negative (Negative); Urine Clarity Sl. Cloudy (Clear); Urine Urobilinogen Normal (Normal)
[2020-06-25 16:09] LABS: Absolute Lymphocyte Count 0.58 X10^3/uL (0.83-4.51); Absolute Neutrophil Count 4.9 X10^3/uL (2.0-7.7); Basophil# 0.02 X10^3/uL; Basophil% 0.3 % (0-1); Eosinophil# 0.16 X10^3/uL; Eosinophils% 2.6 % (0-5); Hemoglobin 11.1 g/dL (12.0-15.0); Lymphocyte # 0.58 X10^3/ul (4.0); Lymphocyte % 9.3 % (19-41); Mean Corpuscular Hgb 25.2 pg (27.0-32.0); Mean Corpuscular Volume 84.1 fL (81-99); Mean Platelet Vol. 9.9 fl (6.2-12.0); Monocyte# 0.53 X10^3/uL; Monocyte% 8.5 % (0-10); NRBC Flagged by Analyzer 0 % (0-5); Neutrophil # 4.89 X10^3/uL (2.7-7.7); Neutrophil % 78.7 % (47-70); POSITIVE DIFFERENTIAL YES; Platelet Count 382 K/mm3 (150-450); RBC Distribution Width CV 15.1 % (11.6-14.6); RBC Distribution Width SD 46.2 fl (35.1-43.9); White Blood Count 6.2 K/mm3 (4.4-11.0)
[2020-06-25 16:20] LABS: Protein, Urine (Random) 65.7 mg/dL (<11.9); Protein:Creat Ratio 466 mg/g CRE (0-200)
[2020-06-25 16:33] LABS: Differential Indicated SCAN CRITERIA MET
[2020-06-25 16:38] LABS: Differential Comment SCANNED
[2020-06-25 17:21] LABS: ALB/GLOB Ratio 0.8 RATIO (0.9-2.4); AST(SGOT) 12 U/L (15-37); Alanine Aminotransfer ALT/SGPT 10 U/L (13-56); Alkaline Phosphatase 70 U/L (45-117); Anion Gap 9 (5-15); BUN 11 mg/dL (7-18); BUN/Creat Ratio 13.5 RATIO (10-20); Calcium,Total 8.6 mg/dL (8.5-10.1); Chloride 112 mmol/L (98-107); Creatinine, Serum 0.82 mg/dL (0.55-1.02); EST Glomerular Filtration Rate 86 mL/min (>60); Est Glom Filt Rate - Afr Amer 104 mL/min (>60); Globulin 3.8 g/dL (2.2-4.2); Glucose 82 mg/dL (74-106); Potassium 4.3 mmol/L (3.5-5.1); Protein, Total 6.8 g/dL (6.4-8.2); Sodium Level 142 mmol/L (136-145)
[2020-06-27 14:16] LABS: Complement C3 123 mg/dL (82-167)
[2020-06-27 15:22] LABS: Anti-dsDNA Ab 85 IU/mL (0-9)
== END ==
PROVIDERS: PCP Family Medicine; Referring Provider Internal Medicine Rheumatology; Visit Provider Internal Medicine Rheumatology
DX: M32.9 Systemic lupus erythematosus, unspecified (principal); I10 Essential (primary) hypertension; Z79.52 Long term (current) use of systemic steroids
CPT/HCPCS: 36415; 80053; 81002; 82570; 84156; 85025; 86160; 86225

== ENCOUNTER → 2020-07-10 12:30 | Outpatient (CLI) | payer BC, SELFPAY ==
[2019-03-01 08:18] VITALS: BMI 26.4
[2020-07-10 13:37] LABS: Hematocrit 38.6 % (37-47); Hemoglobin 11.5 g/dL (12.0-15.0); Mean Corp Hgb Conc 29.8 g/dL (32-36); Mean Corpuscular Hgb 24.8 pg (27.0-32.0); Mean Corpuscular Volume 83.4 fL (81-99); Mean Platelet Vol. 10.2 fl (6.2-12.0); Platelet Count 348 K/mm3 (150-450); RBC Distribution Width CV 15.1 % (11.6-14.6); RBC Distribution Width SD 45.5 fl (35.1-43.9); Red Blood Count 4.63 M/mm3 (4.2-5.4); White Blood Count 6.3 K/mm3 (4.4-11.0)
[2020-07-10 13:50] LABS: Albumin, Serum 2.9 g/dL (3.2-5.0); BUN 11 mg/dL (7-18); BUN/Creat Ratio 15.6 RATIO (10-20); Calcium,Total 8.8 mg/dL (8.5-10.1); Chloride 109 mmol/L (98-107); EST Glomerular Filtration Rate 102 mL/min (>60); Est Glom Filt Rate - Afr Amer 123 mL/min (>60); Glucose 67 mg/dL (74-106); Phosphorus 2.2 mg/dL (2.5-4.9); Potassium 3.5 mmol/L (3.5-5.1); Protein, Urine (Random) 113.6 mg/dL (<11.9); Protein:Creat Ratio 516 mg/g CRE (0-200); Sodium Level 141 mmol/L (136-145)
== END ==
PROVIDERS: PCP Family Medicine; Referring Provider Internal Medicine Nephrology; Visit Provider Internal Medicine Nephrology
DX: D50.9 Iron deficiency anemia, unspecified (principal); M32.14 Glomerular disease in systemic lupus erythematosus
CPT/HCPCS: 36415; 80069; 82570; 84156; 85027

== ENCOUNTER → 2020-11-05 10:49 | Outpatient (CLI) | payer BC, SELFPAY ==
[2020-07-30 11:18] VITALS: BMI 26.4
[2020-11-05 12:26] LABS: Absolute Lymphocyte Count 0.84 X10^3/uL (0.83-4.51); Absolute Neutrophil Count 1.8 X10^3/uL (2.0-7.7); Basophil# 0.03 X10^3/uL; Eosinophil# 0.07 X10^3/uL; Eosinophils% 2.2 % (0-5); Hematocrit 40.7 % (37-47); Hemoglobin 12.6 g/dL (12.0-15.0); Lymphocyte # 0.84 X10^3/ul (4.0); Lymphocyte % 26.7 % (19-41); Mean Corpuscular Hgb 25.5 pg (27.0-32.0); Mean Corpuscular Volume 82.4 fL (81-99); Mean Platelet Vol. 10.2 fl (6.2-12.0); Monocyte# 0.43 X10^3/uL; Monocyte% 13.7 % (0-10); NRBC Flagged by Analyzer 0 % (0-5); Neutrophil # 1.76 X10^3/uL (2.7-7.7); Neutrophil % 55.8 % (47-70); Platelet Count 319 K/mm3 (150-450); RBC Distribution Width CV 15.9 % (11.6-14.6); RBC Distribution Width SD 47.2 fl (35.1-43.9); Red Blood Count 4.94 M/mm3 (4.2-5.4); White Blood Count 3.2 K/mm3 (4.4-11.0)
[2020-11-05 12:38] LABS: Color, Urine Yellow (Yellow); Glucose, Dipstick Normal (Normal); Ketone-Dipstick Negative (Negative); Leukocyte Esterase-Dipstick Negative /ul (Negative); Nitrite-Dipstick Negative (Negative); Occult Blood-Urine 50 /ul (Negative); Protein, Urine (Random) 116.4 mg/dL (<11.9); Protein-Dipstick 100 mg/dl (Negative); Protein:Creat Ratio 701 mg/g CRE (0-200); Urine Bilirubin Dipstick Negative (Negative); Urine Clarity Clear (Clear); Urine Urobilinogen Normal (Normal)
[2020-11-05 13:02] LABS: ALB/GLOB Ratio 0.8 RATIO (0.9-2.4); AST(SGOT) 12 U/L (15-37); Alanine Aminotransfer ALT/SGPT 11 U/L (13-56); Albumin, Serum 2.9 g/dL (3.2-5.0); Alkaline Phosphatase 77 U/L (45-117); Anion Gap 5 (5-15); BUN 12 mg/dL (7-18); Calcium,Total 8.3 mg/dL (8.5-10.1); Chloride 107 mmol/L (98-107); EST Glomerular Filtration Rate 87 mL/min (>60); Est Glom Filt Rate - Afr Amer 106 mL/min (>60); Globulin 3.8 g/dL (2.2-4.2); Glucose 67 mg/dL (74-106); Potassium 3.7 mmol/L (3.5-5.1); Protein, Total 6.7 g/dL (6.4-8.2); Sodium Level 138 mmol/L (136-145)
[2020-11-06 08:59] LABS: Complement C3 105 mg/dL (82-167)
[2020-11-06 20:28] LABS: Anti-dsDNA Ab 71 IU/mL (0-9)
== END ==
PROVIDERS: PCP Family Medicine; Referring Provider Internal Medicine Rheumatology; Visit Provider Internal Medicine Rheumatology
DX: M32.9 Systemic lupus erythematosus, unspecified (principal); I10 Essential (primary) hypertension; Z79.52 Long term (current) use of systemic steroids
CPT/HCPCS: 36415; 80053; 81002; 82570; 84156; 85025; 86160; 86225

== ENCOUNTER → 2020-11-12 07:49 | Outpatient (CLI) | payer BC, SELFPAY ==
[2020-07-30 11:18] VITALS: BMI 26.4
--- NOTE | 2020-11-12 08:13 | RAD_ITS ---
STUDY: X-RAY CHEST REASON FOR EXAM: Female, 35 years old. Pt states TB test for new medication, -- pt having surgery for breast lift November 25 TECHNIQUE: PA and lateral views of the chest. COMPARISON: Comparison is made with prior examination dated 06/22/2017. FINDINGS: The lungs are clear and expanded. There is no demonstrated pleural abnormality. Normal size heart. Normal mediastinum and harriett. Normal visualized pulmonary arteries. Normal visualized aortic arch and descending thoracic aorta. Normal visualized thoracic spine. Normal visualized ribs, clavicles, and shoulders. There is no demonstrated abnormality of the visualized soft tissue structures of the upper abdomen. RAD/Chest PA and Lateral IMPRESSION: Normal x-ray examination of the chest. Electronically Signed: Luisito Szymanski MD at 9:13 EST , Service support ,
[2020-11-15 06:07] LABS: QNTFERON TB Nil Value 0.07 IU/mL (.); QNTFERON TB1+ Ag Value 0.06 IU/mL (.); QNTFERON TB2+ Ag Value 0.06 IU/mL (.)
[2020-11-15 09:13] LABS: QNTIFERON TB Positive Criteria Negative (Negative)
== END ==
LOC: MTLAB 07:51 → RAD 08:11
PROVIDERS: PCP Family Medicine; Referring Provider Internal Medicine Rheumatology; Visit Provider Internal Medicine Rheumatology
DX: M32.9 Systemic lupus erythematosus, unspecified (principal); I10 Essential (primary) hypertension; Z79.52 Long term (current) use of systemic steroids
CPT/HCPCS: 36415; 71046; 86480

== ENCOUNTER 2020-11-25 13:00 | Observation (INO) | payer SELFPAY ==
[2020-07-30 11:18] VITALS: BMI 26.4
--- NOTE | 2020-11-24 08:36 | EKG12_ITS ---
Test Reason : PREOP Blood Pressure : / mmHG Vent. Rate : 081 BPM Atrial Rate : 081 BPM P-R Int : 146 ms QRS Dur : 074 ms QT Int : 362 ms P-R-T Axes : 045 021 031 degrees QTc Int : 420 ms Normal sinus rhythm Normal ECG Confirmed by ADONIS ALVARES, VANDANA ([id number]), assistant film editor JAQUELIN FERRARI ([id number]) on 11/25/2020 8:36:07 AM Referred By: Erlin Caceres Confirmed By:VANDANA LAMB MD
--- NOTE | 2020-11-24 16:08 | HP.PCM_ITS ---
History and Physical Date of Admission: 11/25/20 HISTORY OF PRESENT ILLNESS 35 year old woman presents for evaluation breast lift from steroid use for lupus and recent weight loss. She has a history of lupus for the past 6 years and was on Prednisone until a year ago when she was able to stop Prednisone and change to Cellcept for her lupus. Because of the Prednisone usage, she gained a lot of weight. Since stopping the Prednisone, she has lost 90 lbs. Because of the steroid use for lupus, she developed skin laxity in her upper arms near the axilla and her breasts. Also with steroid use, she developed some skin striae in the upper arms. She has not had a mammogram. She denies fever. She denies trauma. She presents at this time for further evaluation and treatment. 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 Had recent weight loss. Eyes - Denies cataracts and glaucoma. ENT - Denies nasal congestion and sore throat. Has intermittent mouth sores. Endocrine - Denies excessive thirst and urination. Skin - Denies suspicious lesions and skin cancer. Has skin laxity and skin striae upper arms from the Prednisone use. Musculoskeletal - Denies joint pain, joint stiffness, weakness of muscles and joints, back pain, and arthritis. Neuro - Denies headaches. Cardiovascular - Denies chest pain, fatigue, and shortness of breath with exertion. Psych - Denies anxiety and depression. Respiratory - Denies chronic cough and shortness of breath. Gastrointestinal - Denies nausea, vomiting, diarrhea, and constipation. Hematologic - Denies abnormal bruising and bleeding. Has lupus and is on Cellcept. She recently stopped Prednisone for her lupus. Genitourinary - Denies hematuria and urinary frequency. PHYSICAL EXAMINATION General - Alert and Oriented. Her bra size is B cup. HEENT - PERRL. EOMI. Throat is clear. Neck - Supple and nontender. No cervical adenopathy. Breasts - Soft. Mild asymmetry noted with the left breast a little larger. She has Stage II ptosis with a lack of superior pole fullness. No breast masses palpable. No axillary adenopathy. Mild skin striae noted superiorly. Lungs - Clear to auscultation. Heart - Regular rate and rhythm. Abdomen - Soft and nondistended. Extremities - FROM. No axillary adenopathy. Radial pulses are palpable. On the posterior upper arms bilaterally are evidence of mild skin laxity and skin striae. Nontender. Neuro - CN II-XII grossly intact. Psych - Normal mood and affect. ASSESSMENT 1. Bilateral breast ptosis. 2. Recent weight loss. 3. Lupus. 4. Skin laxity posterior upper arms. 5. Skin striae posterior upper arms. 6. History of steroid therapy. PLAN Patient has concerns about her skin laxity and skin striae posterior upper arms. It is mild. Recommended working on toning her arms with exercise. With toning, the mild skin laxity may tighten. The skin striae are not very noticeable and I think will blend in more with her skin once the skin laxity has been toned with exercise. Other options include surgical excision which I would not do because the appearance is mild. Also laser treatments have been sh own to improve the striae but it doesn't eliminate them. Vascular laser treatments can improve newly formed striae that are erythematous. With regard to her breast ptosis, a mastopexy can be done to improve the shape and contour of her breasts. Cannot increase the volume of her breasts with implants, because of the presence of lupus. She understands that her breasts will be small after the mastopexy but is interested in better shape and contour. Surgery will be done under general anesthesia with a surgical observation overnight stay in the hospital. Drains may be needed for a couple days. Tissue that is removed will be sent to Pathology for analysis to rule out carcinoma. Because of her young age, a preoperative mammogram is not necessary. Any striae present on the breast inferiorly may be excised with the mastopexy. The striae that are present superiorly will not be excised. Patient voices understanding. Mastopexy is considered cosmetic and she would be financially responsible for the surgery. Insurance may also not cover any revision surgeries if needed. She voices understanding. We provided her with a victor package for the surgery which includes (surgeon's fee, anesthesia fee, and hospital cost). With breast surgery, it was discussed with the patient that if she has children in the future, she may difficulty with breast feeding. She voices understanding. If she develops problems with breast feeding, she states the baby will be bottle fed. Discussed with the patient in detail, the extent of the scarring that would result with a mastopexy. She voices understanding and wishes to proceed. She has decided to proceed with the surgery. It is scheduled for November 25, 2020. She had preop questions that were answered personally and to her satisfaction. The office consent was signed today. Obtained photographs today. We discussed the current risks associated with COVID-19. While it is understood that there is a community spread of COVID-19, the risk of stefano COVID-19 while at [facility] ([facility]) is very low; however, the risk cannot be completely mitigated because of the community spread of the disease. We discussed in detail the risk of exposure to and/or potential harm posed by the COVID-19 virus with having a surgery/procedure at this time versus the risk of delaying the surgery/procedure. It is not possible to know either the risk of delaying the surgery or procedure or chance of getting an infection with perfect accuracy, but a joint decision was made to proceed at this time with the scheduled surgery/procedure as indicated on the consent form. Patient was notified that we will need to comply with any screening or testing [facility] wishes to perform or that surgery may be delayed for any positive results. Discussed with the patient that I was tested for COVID-19 on 04/24/20 which was negative and on 05/08/20 which was negative and on 05/22/20 which was negative and on 06/05/20 which was negative and on 06/19/20 which was negative and on 07/10/20 which was negative and on 07/31/20 which was negative and on 09/04/20 which was negative and on 09/25/20 which was negative and on 10/14/20 which was negative. My testing regimen at this time is to be COVID-19 tested every 2 weeks or so. I received the COVID-19 vaccine (Moderna) on 10/22/20 and the second vaccine dose was received on 11/19/20. Procedure Criteria Procedure Type: Elective COVID Risk Discussion: The surgeon/proceduralist and patient have discussed in detail the risk of exposure to and/or potential harm posed by the COVID-19 virus with having a surgery/procedure at this time versus the risk of delaying the surgery/procedure. It is not possible to know either the risk of delaying the surgery or procedure or chance of getting an infection with perfect accuracy, but a joint decision was made between the patient and the surgeon/proceduralist to proceed at this time with the scheduled surgery/procedure as indicated on the consent form.
[2020-11-25] VITALS (10 sets, daily range): BP systolic 107–170; BP diastolic 73–100; PULSE 51–95; RESP 16; TEMP 35.8–37.2; O2SAT 59–100; BMI 21.8
--- NOTE | 2020-11-25 | BR_PTH ---
PATIENT: COCO MIRANDA LOC: [facility] U#:[id number] AGE/SX: 35/F ROOM: AZ308 RE11/25/[address]: Dr. Erlin Caceres MD : 1985 BED: 1 DIS: 11/26/2020 SPEC #: [id number] RECD: 11/25/20 13:52 STATUS: RUSS REMariaenla #: [id number] MONIQUE: 11/25/20 00:[address]: Erlin Caceres DEPT: SURGICAL PATHOLOGY RECD BY: Vincent Cherry ENTERED: 11/26/20 09:33 SP TYPE: MAMOPLASTY OTHR DR: Dr. Kt Arroyo, DO Tissues: A - Right breast, NOS B - Left breast, NOS Procedures: Surgery Specimen Level IV HEADER OPERATION: ERAS, breast mastopexy PRE-OP DIAGNOSIS: Bilateral breast ptosis TISSUE SUBMITTED: A - Right breast tissue, B - Left breast tissue MICROSCOPIC DIAGNOSIS A. Right breast tissue, mastopexy: Mild fibrocystic change. Skin with no pathologic change. B. Left breast tissue, mastopexy: Mild fibrocystic change. Skin with no pathologic change. AM:tari 11/27/2020 MICROSCOPIC DESCRIPTION Slides are reviewed. GROSS DESCRIPTION A - Received in fixative is one container labeled with the patient's name and designated right breast tissue. The specimen consists of five irregular fragments of light lopez unremarkable skin and lopez-yellow fibrofatty tissue that in aggregate measure 10 x 10 x 2.8 cm and weigh 50 gm. Serial sections do not reveal mass lesions. Speech Language Pathology Assistant sections are submitted in five cassettes. B - Received in fixative is one container labeled with the patient's name and designated left breast tissue. The specimen consists of five irregular fragments of light lopez unremarkable skin and lopez-yellow fibrofatty tissue that in aggregate measure 17 x 16 x 3 cm and weigh 220 gm. Serial sections reveal white-yellow cut surfaces with no distinct mass lesions. Speech Language Pathology Assistant sections are submitted in five cassettes. / AM:tari 11/26/20 TC:5 CPT: 44980 x2
[2020-11-25 06:46] LABS: Internal QC Validated? YES +Cl - CLEAR BKGD; Pregnancy, Urine Negative Negative
[2020-11-25] MEDS: Lactated Ringers 1,000 ML 100 ML IV ×2 (07:00→09:00)
[2020-11-25] MEDS: Cefazolin 2 GM in 0.9% Normal Saline 100 ML IV (07:34)
[2020-11-25] MEDS: Lidocaine 2% /Epi 1:100 (50ml) 50 ML Vial (08:29)
--- NOTE | 2020-11-25 12:47 | PCM.OPRPT ---
Report of Operation Date of Procedure: 11/25/20 Pre-Operative Diagnosis: 1. Bilateral breast ptosis. 2. Recent weight loss. 3. Skin laxity from recent weight loss and steroid therapy for lupus. 4. Lupus. 5. History of steroid therapy. Post-Operative Diagnosis: Same. Description of Surgical Findings:: 35 year old woman presents for evaluation breast lift from steroid use for lupus and recent weight loss. She has a history of lupus for the past 6 years and was on Prednisone until a year ago when she was able to stop Prednisone and change to Cellcept for her lupus. Because of the Prednisone usage, she gained a lot of weight. Since stopping the Prednisone, she has lost 90 lbs. Because of the steroid use for lupus, she developed skin laxity in her upper arms near the axilla and her breasts. Also with steroid use, she developed some skin striae in the upper arms. She has not had a mammogram. She denies fever. She denies trauma. Patient was informed of the risks and complications of the procedure including alternatives to surgery. These were discussed with the patient personally. Patient voices understanding and wishes to proceed. Some of the risks and complications were included in a form from the [employer]. IV Fluids - 2700 ml. Urine Output - 1000 ml. international logistics analyst: Chelsea Molina - student Type of Anesthesia:: General Specimen's removed: 1. Left breast tissue to Pathology. 2. Right breast tissue to Pathology. Drains: Narinder x2 (one in each breast). Estimated Blood Loss (mL): 50 ml. Fluids Replaced: 3700 ml ( IV Fluids 2700 ml, Urine Output 1000 ml). Description of Procedure: In the preop area, the patient was placed in the sitting position and preoperative markings were made. The sternum midline was marked down to the umbilicus. The inframammary folds were marked bilaterally. The midclavicular line was then marked down to the nipple, then from the nipple to the inframammary fold. The inframammary fold was then superimposed on the midclavicular line and I made a point 1 cm below that to be the new position of the nipple-areolar complex. 7 cm lines were then drawn divergent from that point to encompass the nipple-areolar complex. The distance between the divergent lines was 9 cm. The patient was then placed in the supine position and taken to the operating room and placed under general anesthesia and her breasts were prepped and draped in usual fashion. Ioban draping was also used. SCDs were placed for DVT prophylaxis. Perioperative antibiotics were given intravenously. A Nuñez catheter was also placed. For the surgery I wore an N95 mask and wore proper eye protection. I then maria m straight lines down from the lines drawn divergent around the nipple-areolar complex down to the inframammary fold. The width of the pedicle is 9 cm. I then used a 42 mm circular template for a new size of the nipple-areolar complex. The central markings were infiltrated with Xylocaine and epinephrine. The central skin was then deepithelialized. I started on the right side first because the breast was smaller and then went to the left side. I then mobilized medial and lateral breast flaps at the level of Linda's fascia down to within a centimeter of the chest wall. This was met in the midline of the breast with dissection at the level of Linda's fascia down to within a centimeter of the chest wall. Once the central breast mound pedicle was from the skin envelope, I was able to place the breast mound underneath the skin envelope without removing any breast tissue from the central breast mound pedicle. I then sutured the leading edge of the medial and lateral breast flaps to the midline of the inframammary fold with 2-0 Vicryl suture. The vertical incision was approximated using surgical clips. The excess tissue from the medial and lateral breast flaps were excised and the horizontal incision was approximated using surgical clips. When I went to the left breast, more tissue was removed since it was a larger breast. I mobilized medial and lateral breast flaps at the level of Linda's fascia down to within a centimeter of the chest wall. This was met in the midline of the breast with dissection at the level of Linda's fascia down to within a centimeter of the chest wall. Once the central breast mound pedicle was from the skin envelope, the mastopexy was then begun. Some tissue was removed from the superior aspect of the breast and the lateral aspect of the breast to help with symmetry and to allow the central breast mound pedicle to be placed underneath the skin envelope. I then sutured the leading edge of the medial and lateral breast flaps to the midline of the inframammary fold with 2-0 Vicryl suture. The vertical incision was approximated using surgical clips. The excess tissue from the medial and lateral breast flaps were excised and the horizontal incision was approximated using surgical clips. The patient was then placed in a sitting position. Using a vertical limb length of 4.5 cm, I maria m the new position of the new nipple-areolar complexes on both breasts. They were in good position on the central aspect of the breast mound. Good symmetry was noted between the left breast and the right breast. Good shape and contour was noted. The patient was then placed back in the supine position and the surgical clips were removed. The breast wounds were then irrigated with Irrisept 0.05% Chlorhexidine solution which was followed by saline irrigation. Hemostasis was obtained using electrocautery. The tissue that was removed from the breasts was sent to Pathology for analysis to rule out carcinoma. More tissue was removed from the left breast as it was a little larger. After hemostasis was obtained using electrocautery, I then placed a size 15 Narinder drain into each breast wound to be brought through the lateral aspect of the horizontal incision. I then closed the breast wounds by first approximating the leading edge of the medial and lateral breast flaps to the midline of the inframammary fold with 2-0 Vicryl suture. The deep dermis and subcutaneous tissue of the vertical incision and the horizontal incisions were approximated using 3-0 Monocryl interrupted sutures. area. The horizontal incision was then approximated using 3-0 V-Loc unidirectional barbed running subcuticular suture. I also placed a few 4-0 Prolene vertical mattress interrupted sutures at the level of the Tzone. The vertical incision was then closed on the skin with 4-0 Prolene interrupted sutures. With a vertical limb length of 4.5 cm, I maria m a circular incision where the nipple-areolar complex would be brought through this keyhole incision. Incisions were made and the nipple areolar complex was brought through the keyhole incision. The nipple-areolar complex was secured to the breast skin using 3-0 Monocryl interrupted sutures for deep dermis and subcutaneous tissue. The skin was approximated using 4-0 Prolene simple interrupted sutures. This was then covered with Histoacryl skin tissue adhesive. I sutured the drain to the skin using 3-0 nylon suture. At the end of the procedure, the breasts were soft with no evidence of vascular compromise. No evidence of hematomas were noted. The nipples were viable. I then dressed the breasts with a Kerlix gauze and a compression christiano wrap. Then patient tolerated the procedure well and will be sent to the recovery room in satisfactory condition. She will be admitted for surgical observation overnight stay. She will go home tomorrow once she is tolerating oral pain medication. I will remove the drains tomorrow. She will keep her head elevated during the initial postoperative period. She will be maintained on a lifting restriction and keep her head elevated during the initial postoperative period. Post-discharge, she may get a compression sports bra as well. She will have the Nuñez removed in the morning. She will be sent home on antibiotics and pain medicine. Sutures will be removed in 1-2 weeks. Grafts/Implants Used: None. - Complications None. - Admit VTE Documentation VTE Present on Admission: No VTE Mechan Device Prophylaxis: SCD's VTE Pharm Prophylaxis ordered?: Yes Surgery Charges - Cosmetic CPT - 06147 ICD-10 - N64.81, R63.4, L57.4, Z92.241, M32.9 [id number] N64.81, R63.4, L57.4, Z92.241, M32.9
[2020-11-25] MEDS: Lactated Ringers 1,000 ML 60 ML IV (15:40)
[2020-11-25] MEDS: Cefazolin 1 GM/50 ML BAG IV ×2 (16:27→22:25)
[2020-11-25] MEDS: Ensure Surgery 237 ML LIQUID PO (16:28)
[2020-11-25] MEDS: Gabapentin 100 MG Capsule 200 MG PO (16:29)
[2020-11-25] MEDS: Hydroxychloroquine 200 MG Tablet PO (16:29)
[2020-11-25] MEDS: Acetaminophen 500 MG Tablet 1000 MG PO ×2 (16:30→22:26)
[2020-11-25] MEDS: Docusate Sodium 100 MG Capsule PO (22:22)
[2020-11-25] MEDS: Mycophenolate Mofetil 250 MG Capsule 500 MG PO (22:22)
[2020-11-26 02:31] VITALS: BP 112/59; PULSE 58; RESP 16; TEMP 37.1; O2SAT 97
[2020-11-26] MEDS: Acetaminophen 500 MG Tablet 1000 MG PO ×2 (06:22→11:42)
[2020-11-26] MEDS: Cefazolin 1 GM/50 ML BAG IV (06:22)
[2020-11-26 06:34] VITALS: BP 107/77; PULSE 67; RESP 17; TEMP 36.9; O2SAT 100
[2020-11-26 06:40] VITALS: O2SAT 100
[2020-11-26 07:27] LABS: Hematocrit 34.9 % (37-47); Hemoglobin 10.4 g/dL (12.0-15.0); Mean Corp Hgb Conc 29.8 g/dL (32-36); Mean Corpuscular Hgb 25.6 pg (27.0-32.0); Mean Platelet Vol. 9.7 fl (6.2-12.0); Platelet Count 256 K/mm3 (150-450); RBC Distribution Width CV 15.9 % (11.6-14.6); RBC Distribution Width SD 50.8 fl (35.1-43.9); Red Blood Count 4.06 M/mm3 (4.2-5.4); White Blood Count 4.7 K/mm3 (4.4-11.0)
[2020-11-26 08:51] LABS: Anion Gap 4 (5-15); BUN 13 mg/dL (7-18); BUN/Creat Ratio 14.4 RATIO (10-20); Calcium,Total 7.9 mg/dL (8.5-10.1); Chloride 113 mmol/L (98-107); EST Glomerular Filtration Rate 76 mL/min (>60); Est Glom Filt Rate - Afr Amer 92 mL/min (>60); Estimated Creatinine Clearance 86.46 ml/min; Glucose 75 mg/dL (74-106); Potassium 3.8 mmol/L (3.5-5.1); Sodium Level 141 mmol/L (136-145)
[2020-11-26 09:12] VITALS: BP 108/61; PULSE 71; RESP 18; TEMP 36.7; O2SAT 100
[2020-11-26] MEDS: Gabapentin 100 MG Capsule 200 MG PO ×2 (09:17→11:42)
[2020-11-26] MEDS: Lisinopril 2.5 MG Tablet PO (09:17)
[2020-11-26] MEDS: Mycophenolate Mofetil 250 MG Capsule 500 MG PO (09:18)
[2020-11-26] MEDS: Hydroxychloroquine 200 MG Tablet PO (09:19)
--- NOTE | 2020-11-26 11:18 | PCM.PN.SRG ---
Subjective: Postop #1 Patient is resting comfortably. Tolerating po analgesia. - Physical Exam Vitals/I&O's: Vital Signs Temp Pulse Resp BP Pulse Ox 98.0 F 71 18 108/61 100 11/26/20 09:12 11/26/20 09:12 11/26/20 09:12 11/26/20 09:12 11/26/20 09:12 Oxygen Flow Rate (L/min) 6 Oxygen Delivery Method Room Air Weight: 139 lb 5.314 oz Body Mass Index (BMI) 21.8 Intake and Output for Last 24 Hours 11/24/20/12/1411/26/20 23:59 23:59 23:59 Intake Total 2965 / 2965 999.25 / 999.25 Output Total 673 / 673 365 / 365 Balance 2292 / 2292 634.25 / 634.25 Drainage 63 ml yesterday, 15 ml today. General: Alert, Oriented x3 HEENT: PERRLA, EOMI Oral: Moist Mucosa Neck: Supple Abdomen: Soft, Non-Distended Skin: Incision - bilateral breast incisions are dry and intact. Breasts are soft and symmetrical. No clinical evidence of hematoma. Nipples are viable. Neurological: Cranial nerves II-XII grossly intact Psych/Mental Status: Normal Affect, Appropriate Microbiology Past 72 Hours 11/24/20 08:30 Interface Orders SARS-CoV-2 Antigen (Rapid) - Final Laboratory Results 11/26/20 06:36: Sodium 141, Potassium 3.8, Chloride 113 H, Carbon Dioxide 24.0, Anion Gap 4 L, BUN 13, Creatinine 0.90, Estim Creat Clear Calc 86.46, Est GFR (MDRD) Af Amer 92, Est GFR (MDRD) Non-Af 76, BUN/Creatinine Ratio 14.4, Glucose 75, Calcium 7.9 L, Prealbumin Pending 11/26/20 06:36: WBC 4.7, RBC 4.06 L, Hgb 10.4 L, Hct 34.9 L, MCV 86.0, MCH 25.6 L, MCHC 29.8 L, RDW Std Deviation 50.8 H, RDW Coeff of Coleman 15.9 H, Plt Count 256, MPV 9.7 Current Medications Acetaminophen (Acetaminophen 500 Mg Tablet) 1,000 mg PO Q6 [facility] Last Admin: 11/26/20 06:22 Dose: 1,000 mg Documented by: Docusate Sodium (Docusate Sodium 100 Mg Capsule) 100 mg PO BID [facility] Last Admin: 11/26/20 09:19 Dose: Not Given Documented by: Enoxaparin Sodium (Enoxaparin 40 Mg/0.4 Ml Syringe) 40 mg SC DAILY [facility] Last Admin: 11/26/20 09:20 Dose: Not Given Documented by: Enteral Nutritional Formula (Ensure Surgery 237 Ml Liquid) 237 ml PO TIDCM [facility] Last Admin: 11/25/20 16:28 Dose: 237 ml Documented by: Gabapentin (Gabapentin 100 Mg Capsule) 200 mg PO TIDCM [facility] Last Admin: 11/26/20 09:17 Dose: 200 mg Documented by: Hydromorphone HCl (Hydromorphone 1 Mg/Ml Syringe) 0.5 - 1 mg IV Q3H PRN PRN PRN Reason: Pain Score 6-10 Hydromorphone HCl (Hydromorphone 0.5 Mg/0.5 Ml Syringe) 0.5 - 1 mg IV Q3H PRN PRN PRN Reason: Pain Score 6-10 Hydroxychloroquine Sulfate (Hydroxychloroquine 200 Mg Tablet) 200 mg PO BIDCM [facility] Last Admin: 11/26/20 09:19 Dose: 200 mg Documented by: Lactated Ringer's () 1,000 mls @ 60 mls/hr IV .[id number] [facility] Last Infusion: 11/26/20 09:16 Dose: Infused Documented by: Cefazolin Sodium () 1 gm in 50 mls @ 100 mls/hr IV Q8 [facility] Last Infusion: 11/26/20 06:52 Dose: Infused Documented by: Lisinopril (Lisinopril 2.5 Mg Tablet) 2.5 mg PO DAILY [facility] Last Admin: 11/26/20 09:17 Dose: 2.5 mg Documented by: Magnesium Chloride (Magnesium Chloride 64 Mg Delay Rel.Tablet) 128 mg PO DAILY PRN PRN PRN Reason: Constipation Mycophenolate Mofetil (Mycophenolate Mofetil 250 Mg Capsule) 500 mg PO BID [facility] Last Admin: 11/26/20 09:18 Dose: 500 mg Documented by: Ondansetron HCl (Ondansetron Odt 4 Mg Tablet) 4 mg PO Q6H PRN PRN PRN Reason: NAUSEA Oxycodone HCl (Oxycodone 5 Mg Tablet) 5 - 10 mg PO Q4H PRN PRN PRN Reason: Pain Score 4-5 Sodium Chloride (0.9% Saline Lock 10 Ml Syringe) 10 - 40 ml IV UD PRN PRN Reason: SALINE FLUSH Medical Necessity - Tobacco Use Smoking Status: Never smoker Tobacco Use: Non-smoker Assessment/Plan 1. Bilateral breast ptosis. 2. Recent weight loss. 3. Skin laxity from recent weight loss and steroid therapy for lupus. 4. Lupus. 5. History of steroid therapy. 6. s/p bilateral breast lift mastopexy. Breast incisions are dry and intact. Breasts are soft and symmetrical. No clinical evidence of hematoma. Nipples are viable. Prealbumin was 14.6. Encourage nutritional supplementation with protein to help the healing process. Drainage 63 ml yesterday and 15 ml today. Drains were removed today without difficulty. She is tolerating po analgesia. Discharge home today. Keep head elevated. Maintain lifting restriction. Continue christiano wrap compression. Followup one week. Wrote script for Cefadroxil for 4 days. Wrote script for Percocet for pain (40 tabs).
--- NOTE | 2020-11-26 11:27 | DCINST_ITS ---
You will use the following diet at home:: No restrictions, Other - encourage nutritional supplementation with protein to help the healing process. Discharge Activity: May not drive while taking narcotic pain medications., May Shower, - - keep head elevated. no heavy lifting. May shower in (days): 1 May resume sexual activity in: No Restrictions Weight Bearing Status: Weight bearing as tolerated Lifting Restrictions: 20 lbs. Keep extremity elevated above heart level: - - elevate head. Call your doctor if your incision/area has: Continuous Slow Oozing, Sudden Increased Bleeding, Increased Pain/ Swelling, Increased Redness, Foul Smelling Discharge, Swelling at the incision site Call your doctor if you observe: Fever of 101 or Higher, Coldness, Increased P ain, Shortness of breath, Chest pain, Calf discomfort, Uncontrolled pain Suture Line Care: - - dry dressings daily. Change Dressing in (Days):: 1 - dry dressings daily. Cleanse incision/area with: Soap & Water - may cleanse the incisions with soap and water when showering. Allergies/Adverse Reactions: Allergies No Known Allergies Allergy (Verified 11/19/20 09:27) Medications to take at Discharge Hydroxychloroquine [Plaquenil] 200 mg PO BIDCM 11/04/14 lisinopril 2.5 mg tablet 2.5 mg PO QDAY 04/18/18 mycophenolate mofetil 250 mg capsule 500 mg PO BID 04/18/18 levonorgestrel 20 mcg/24 hours (6 yrs) 52 mg intrauterine device 1 insert INTRA- UTER ONCE 05/29/18 Cefadroxil [Duricef] 500 mg PO BID #8 cap 11/26/20 Oxycodone HCl/Acetaminophen [Percocet 5/325] 1 tablet PO Q4H PRN PRN 7 Days #40 tablet 11/26/20 The following prescriptions were given: Cefadroxil [Duricef] 500 mg PO BID #8 cap Transmission Status: Pending to [id number] Oxycodone HCl/Acetaminophen [Percocet 5/325] 1 tablet PO Q4H PRN PRN 7 Days #40 tablet PRN Reason: Pain Score 6-10 Transmission Status: Sent to [id number] Primary Care Physician: Kt Arroyo DO [Primary Care Provider] - Test Results: Test results from this visit will be discussed in further detail at your follow- up appointment, if applicable. Please Follow Up With: Erlin Caceres MD When: one week. call [phone] for appt. Proposed Discharge Date: 11/26/20
[2020-11-26 11:32] LABS: Prealbumin 14.6 mg/dL (20.0-40.0)
[2020-11-26] MEDS: Ensure Surgery 237 ML LIQUID PO (11:43)
[2020-11-26 11:54] VITALS: BP 105/77; PULSE 66; RESP 16; TEMP 36.7; O2SAT 100
--- NOTE | 2020-11-26 12:18 | PHA.DC.MR ---
Pharmacy Service has performed discharge medication reconciliation for this patient. The patient's discharge medication list was reviewed for discrepancies and discrepancies were resolved. Home Medications Hydroxychloroquine [Plaquenil] 200 mg PO BIDCM 11/04/14 lisinopril 2.5 mg tablet 2.5 mg PO QDAY 04/18/18 mycophenolate mofetil 250 mg capsule 500 mg PO BID 04/18/18 levonorgestrel 20 mcg/24 hours (6 yrs) 52 mg intrauterine device 1 insert INTRA-UTER ONCE 05/29/18 Cefadroxil [Duricef] 500 mg PO BID #8 cap 11/26/20 Oxycodone HCl/Acetaminophen [Percocet 5/325] 1 tab PO Q4H PRN PRN 7 Days #40 tab 11/26/20
== END 2020-11-26 11:49 | disposition home or self-care (01) ==
LOC: SDC 13:38 → MS3 13:38
PROVIDERS: Anesthesiology; Admitting Provider Surgery; PCP Family Medicine; Referring Provider Surgery; Visit Provider Surgery
PROC: (CPT 19316; principal; 2020-11-25 07:15)
DX: N64.81 Ptosis of breast (principal); M32.9 Systemic lupus erythematosus, unspecified; Z92.241 Personal history of systemic steroid therapy; Z79.899 Other long term (current) drug therapy; Z20.828 Contact with and (suspected) exposure to other viral communicable diseases; I10 Essential (primary) hypertension; L57.4 Cutis laxa senilis; Z79.3 Long term (current) use of hormonal contraceptives
CPT/HCPCS: 00402; 19316; 36415; 80048; 81025; 84134; 85027; 87426; 88305; 93005; 96365; 96366; 99218; C9803; J7120; G0378; G0379; J2405; Q9968

== ENCOUNTER → 2021-01-07 11:55 | Outpatient (CLI) | payer BC, SELFPAY | PROVIDERS: PCP Family Medicine; Visit Provider Nurse Practitioner Family | DX: T81.89XA Other complications of procedures, not elsewhere classified, initial encounter (principal); N64.81 Ptosis of breast; R63.4 Abnormal weight loss; L57.4 Cutis laxa senilis; L90.6 Striae atrophicae; M32.9 Systemic lupus erythematosus, unspecified | CPT/HCPCS: 87070; 87075; 87077; 87205 ==

== ENCOUNTER → 2021-02-12 11:03 | Outpatient (CLI) | payer BC, SELFPAY ==
[2019-03-01 08:18] VITALS: BMI 26.4
[2021-02-12 12:51] LABS: Absolute Lymphocyte Count 0.77 X10^3/uL (0.83-4.51); Absolute Neutrophil Count 2.6 X10^3/uL (2.0-7.7); Basophil# 0.03 X10^3/uL; Basophil% 0.8 % (0-1); Eosinophil# 0.12 X10^3/uL; Hemoglobin 12.2 g/dL (12.0-15.0); Lymphocyte # 0.77 X10^3/ul (0.83-4.51); Lymphocyte % 19.3 % (19-41); Mean Corp Hgb Conc 30.5 g/dL (32-36); Mean Corpuscular Hgb 25.5 pg (27.0-32.0); Mean Corpuscular Volume 83.5 fL (81-99); Mean Platelet Vol. 10.7 fl (6.2-12.0); Monocyte# 0.44 X10^3/uL; NRBC Flagged by Analyzer 0 % (0-5); Neutrophil # 2.62 X10^3/uL (2.7-7.7); Neutrophil % 65.6 % (47-70); Platelet Count 320 K/mm3 (150-450); RBC Distribution Width SD 45.7 fl (35.1-43.9); Red Blood Count 4.79 M/mm3 (4.2-5.4)
[2021-02-12 15:27] LABS: Color, Urine Yellow (Yellow); Glucose, Dipstick Normal (Normal); Ketone-Dipstick Negative (Negative); Leukocyte Esterase-Dipstick 500 /ul (Negative); Nitrite-Dipstick Negative (Negative); Occult Blood-Urine 250 /ul (Negative); Protein-Dipstick 30 mg/dl (Negative); Urine Bilirubin Dipstick Negative (Negative); Urine Clarity Clear (Clear); Urine Urobilinogen Normal (Normal)
[2021-02-12 15:36] LABS: Protein, Urine (Random) 51.2 mg/dL (<11.9); Protein:Creat Ratio 346 mg/g CRE (0-200)
[2021-02-12 15:42] LABS: ALB/GLOB Ratio 0.9 RATIO (0.9-2.4); AST(SGOT) 10 U/L (15-37); Alanine Aminotransfer ALT/SGPT 13 U/L (13-56); Albumin, Serum 3.3 g/dL (3.2-5.0); Alkaline Phosphatase 78 U/L (45-117); Anion Gap 5 (5-15); BUN 18 mg/dL (7-18); Calcium,Total 8.2 mg/dL (8.5-10.1); Chloride 110 mmol/L (98-107); Creatinine, Serum 0.86 mg/dL (0.55-1.02); EST Glomerular Filtration Rate 81 mL/min (>60); Est Glom Filt Rate - Afr Amer 97 mL/min (>60); Ferritin 58 ng/mL (8-252); Globulin 3.6 g/dL (2.2-4.2); Glucose 61 mg/dL (74-106); Iron 85 ug/dL (50-170); Iron Binding Capacity,Total 245 ug/dL (250-450); PERCENT IRON SATURATION 34.7 % (15.0-55.0); Phosphorus 3.1 mg/dL (2.5-4.9); Potassium 4.5 mmol/L (3.5-5.1); Protein, Total 6.9 g/dL (6.4-8.2); Sodium Level 139 mmol/L (136-145)
[2021-02-12 15:43] LABS: Vitamin D,25 Hydroxy 26.7 ng/mL
[2021-02-14 07:50] LABS: Complement C3 110 mg/dL (82-167)
[2021-02-16 07:48] LABS: Anti-dsDNA Ab 72 IU/mL (0-9)
== END ==
PROVIDERS: PCP Family Medicine; Referring Provider Internal Medicine Nephrology; Visit Provider Internal Medicine Nephrology
DX: M32.9 Systemic lupus erythematosus, unspecified (principal); I10 Essential (primary) hypertension; Z79.52 Long term (current) use of systemic steroids; D50.9 Iron deficiency anemia, unspecified
CPT/HCPCS: 36415; 80053; 81002; 82306; 82570; 82728; 83540; 83550; 84100; 84156; 85025; 86160; 86225

== ENCOUNTER → 2021-03-19 10:05 | Outpatient (CLI) | payer BC, SELFPAY ==
[2021-02-25 11:35] VITALS: BMI 21.8
--- NOTE | 2021-03-19 09:45 | LES_PTH ---
PATIENT: COCO MIRANDA LOC: [facility] U#:[id number] AGE/SX: 40/F ROOM: RE03/19/[address]: Dr. Deneen Ayala DO : 1985 BED: DIS: SPEC #: [id number] RECD: 03/19/21 10:40 STATUS: RUSS REMarianela #: [id number] MONIQUE: 03/19/21 09:[address]: Deneen Ayala DEPT: SURGICAL PATHOLOGY RECD BY: Darya Leal ENTERED: 03/19/21 11:11 SP TYPE: Lesion OTHR DR: Dr. Kt Arroyo, DO Tissues: Labium, NOS Procedures: Surgery Specimen Level IV HEADER OPERATION: Excision and biopsy condyloma labia majora and superior to clitoris PRE-OP DIAGNOSIS: Condyloma labia majora and superior to clitoris TISSUE SUBMITTED: Condyloma MICROSCOPIC DIAGNOSIS Condyloma of labia majora, biopsy: Molluscum contagiosum. AM:tari 03/20/2021 COMMENT Case has been reviewed in consultation with Dr. Hernández who concurs with the above diagnosis. IDC:SJ MICROSCOPIC DESCRIPTION Slides are reviewed. GROSS DESCRIPTION Received in fixative is one container labeled with the patient's name and designated biopsy condyloma. The specimen consists of multiple irregular fragments of light to dark lopez soft tissue that in aggregate measure 1.5 x 0.7 x 0.2 cm. The specimen is totally submitted in one cassette. / AM:tari 03/19/21 TC:5 CPT: 02329
[2021-03-19 11:56] LABS: Hepatitis B Surface Antibody Non-Reactive; Hepatitis B Surface Antigen Non-Reactive (Nonreactive); Hepatitis C Antibody Non-Reactive (Nonreactive); Syphilis Antibodies Non-reactive
== END ==
PROVIDERS: PCP Family Medicine; Visit Provider Student in an Organized Health Care Education/Training Program
DX: Z11.3 Encounter for screening for infections with a predominantly sexual mode of transmission (principal); A63.0 Anogenital (venereal) warts; B08.1 Molluscum contagiosum
CPT/HCPCS: 36415; 86706; 86780; 86803; 87340; 88305

== ENCOUNTER → 2021-07-02 16:47 | Outpatient (CLI) | payer BC, SELFPAY ==
[2021-07-02 18:27] LABS: Absolute Lymphocyte Count 0.51 X10^3/uL (0.83-4.51); Absolute Neutrophil Count 2.5 X10^3/uL (2.0-7.7); Basophil# 0.03 X10^3/uL; Basophil% 0.9 % (0-1); Eosinophil# 0.03 X10^3/uL; Eosinophils% 0.9 % (0-5); Hematocrit 36.8 % (37-47); Hemoglobin 11.1 g/dL (12.0-15.0); Lymphocyte # 0.51 X10^3/ul (0.83-4.51); Lymphocyte % 14.9 % (19-41); Mean Corp Hgb Conc 30.2 g/dL (32-36); Mean Corpuscular Hgb 24.9 pg (27.0-32.0); Mean Corpuscular Volume 82.7 fL (81-99); Mean Platelet Vol. 10.8 fl (6.2-12.0); Monocyte# 0.38 X10^3/uL; Monocyte% 11.1 % (0-10); NRBC Flagged by Analyzer 0 % (0-5); Neutrophil # 2.46 X10^3/uL (2.7-7.7); Neutrophil % 71.6 % (47-70); POSITIVE DIFFERENTIAL YES; Platelet Count 391 K/mm3 (150-450); RBC Distribution Width CV 14.6 % (11.6-14.6); RBC Distribution Width SD 44.4 fl (35.1-43.9); Red Blood Count 4.45 M/mm3 (4.2-5.4); White Blood Count 3.4 K/mm3 (4.4-11.0)
[2021-07-02 18:43] LABS: Color, Urine Yellow (Yellow); Glucose, Dipstick Normal (Normal); Ketone-Dipstick Negative (Negative); Leukocyte Esterase-Dipstick 25 /ul (Negative); Nitrite-Dipstick Negative (Negative); Occult Blood-Urine Negative /ul (Negative); Protein-Dipstick 100 mg/dl (Negative); Specific Gravity, Urine 1.025 (1.002-1.030); Urine Bilirubin Dipstick Negative (Negative); Urine Clarity Cloudy (Clear); Urine Urobilinogen Normal (Normal)
[2021-07-02 18:45] LABS: Differential Indicated SCAN CRITERIA MET
[2021-07-02 18:47] LABS: ALB/GLOB Ratio 0.7 RATIO (0.9-2.4); AST(SGOT) 12 U/L (15-37); Alanine Aminotransfer ALT/SGPT 15 U/L (13-56); Alkaline Phosphatase 74 U/L (45-117); Anion Gap 4 (5-15); BUN 11 mg/dL (7-18); BUN/Creat Ratio 14.2 RATIO (10-20); Calcium,Total 8.2 mg/dL (8.5-10.1); Chloride 107 mmol/L (98-107); Creatinine, Serum 0.78 mg/dL (0.55-1.02); EST Glomerular Filtration Rate 91 mL/min (>60); Est Glom Filt Rate - Afr Amer 110 mL/min (>60); Globulin 4.5 g/dL (2.2-4.2); Glucose 82 mg/dL (74-106); Potassium 3.7 mmol/L (3.5-5.1); Protein, Total 7.5 g/dL (6.4-8.2); Sodium Level 137 mmol/L (136-145)
[2021-07-02 18:51] LABS: Protein, Urine (Random) 217.5 mg/dL (<11.9); Protein:Creat Ratio 763 mg/g CRE (0-200)
[2021-07-02 19:45] LABS: Differential Comment SCANNED
[2021-07-03 12:15] LABS: Pathologist Review Reviewed
[2021-07-04 13:59] LABS: Complement C3 109 mg/dL (82-167)
[2021-07-05 21:11] LABS: Anti-dsDNA Ab 59 IU/mL (0-9)
== END ==
PROVIDERS: PCP Family Medicine; Referring Provider Internal Medicine Rheumatology; Visit Provider Internal Medicine Rheumatology
DX: M32.9 Systemic lupus erythematosus, unspecified (principal); I10 Essential (primary) hypertension; Z79.52 Long term (current) use of systemic steroids
CPT/HCPCS: 36415; 80053; 81002; 82570; 84156; 85025; 86160; 86225

== ENCOUNTER → 2021-10-12 13:00 | Outpatient (CLI) | payer BC, SELFPAY ==
[2021-10-12 15:18] LABS: Hematocrit 36.3 % (37-47); Hemoglobin 11.2 g/dL (12.0-15.0); Mean Corp Hgb Conc 30.9 g/dL (32-36); Mean Corpuscular Hgb 24.9 pg (27.0-32.0); Mean Corpuscular Volume 80.7 fL (81-99); Mean Platelet Vol. 10.9 fl (6.2-12.0); Platelet Count 387 K/mm3 (150-450); RBC Distribution Width CV 14.1 % (11.6-14.6); RBC Distribution Width SD 41.1 fl (35.1-43.9); White Blood Count 3.3 K/mm3 (4.4-11.0)
[2021-10-12 15:43] LABS: Albumin, Serum 2.8 g/dL (3.2-5.0); BUN 9 mg/dL (7-18); BUN/Creat Ratio 11.9 RATIO (10-20); Calcium,Total 8.4 mg/dL (8.5-10.1); Chloride 108 mmol/L (98-107); Creatinine, Serum 0.76 mg/dL (0.55-1.02); EST Glomerular Filtration Rate 93 mL/min (>60); Est Glom Filt Rate - Afr Amer 112 mL/min (>60); Glucose 79 mg/dL (74-106); Phosphorus 2.3 mg/dL (2.5-4.9); Potassium 3.6 mmol/L (3.5-5.1); Sodium Level 140 mmol/L (136-145)
[2021-10-12 15:49] LABS: Protein, Urine (Random) 241.1 mg/dL (<11.9); Protein:Creat Ratio 1035 mg/g CRE (0-200)
[2021-10-14 16:33] LABS: Anti-dsDNA Ab 63 IU/mL (0-9)
== END ==
PROVIDERS: PCP Family Medicine; Referring Provider Internal Medicine Nephrology; Visit Provider Internal Medicine Nephrology
DX: M32.14 Glomerular disease in systemic lupus erythematosus (principal)
CPT/HCPCS: 36415; 80069; 82570; 84156; 85027; 86225

== ENCOUNTER 2021-10-28 10:45 | Outpatient (CLI) | payer BC, SELFPAY | END 2021-10-28 23:59 | disposition short-term general hospital (02) | LOC: LABSPEC 10:45 | PROVIDERS: PCP Family Medicine; Visit Provider Physician Assistant | DX: Z11.52 Encounter for screening for COVID-19 (principal) | CPT/HCPCS: 87635; U0003; U0005 ==

== ENCOUNTER 2021-12-03 16:45 | Outpatient (CLI) | payer BC, SELFPAY ==
--- NOTE | 2021-12-03 | TISS_PTH ---
PATIENT: COCO MIRANDA LOC: [facility]#:[id number] AGE/SX: 36/F ROOM: RE12/03/[address]: Dr. Deneen Ayala DO : 1985 BED: DIS: 12/03/2021 SPEC #: [id number] RECD: 12/03/21 17:13 STATUS: RUSS REMarianela #: [id number] MONIQUE: 12/03/21 00:[address]: Deneen Ayala DEPT: SURGICAL PATHOLOGY RECD BY: Tristian Cerda ENTERED: 12/04/21 09:32 SP TYPE: Tissue Bx OT DR: Dr. Kt Arroyo DO Tissues: TISSUE SURGICALLY REMOVED Procedures: Surgery Specimen Level IV HEADER OPERATION: Skin tag removal PRE-OP DIAGNOSIS: Skin tag TISSUE SUBMITTED: Skin tag left labia MICROSCOPIC DIAGNOSIS Lesion of left labia, biopsy: Molluscum contagiosum. AM:tari 12/07/2021 COMMENT Reference is made to the patient's previous biopsy ([id number]) of labia majora in which similar findings were identified. Case has been reviewed in consultation with Dr. Hernández who concurs with the above diagnosis. REGIS:SEGUN MICROSCOPIC DESCRIPTION Slides are reviewed. GROSS DESCRIPTION Received in fixative is one container labeled with the patient's name and designated skin tag. The specimen consists of a piece of lopez-white skin measuring 0.5 x 0.5 x 0.2 cm. Multiple minute fragments of lopez-white skin are also noted measuring in aggregate 0.5 x 0.1 x 0.1 cm. The specimen is totally submitted in one cassette. / SEGUN:tari 12/04/2021 TC:5 CPT: 05708
== END 2021-12-03 23:59 | disposition home or self-care (01) ==
LOC: LABSPEC 16:49
PROVIDERS: PCP Family Medicine; Visit Provider Student in an Organized Health Care Education/Training Program
DX: L91.8 Other hypertrophic disorders of the skin (principal)
CPT/HCPCS: 88305

== ENCOUNTER 2021-12-24 08:10 | Outpatient (CLI) | payer BC, SELFPAY ==
[2021-12-24 10:29] LABS: Color, Urine Yellow (Yellow); Glucose, Dipstick Normal (Normal); Ketone-Dipstick Negative (Negative); Leukocyte Esterase-Dipstick 25 /ul (Negative); Nitrite-Dipstick Negative (Negative); Occult Blood-Urine 10 /ul (Negative); Protein-Dipstick 100 mg/dl (Negative); Urine Bilirubin Dipstick Negative (Negative); Urine Clarity Sl. Cloudy (Clear); Urine Urobilinogen Normal (Normal)
[2021-12-24 10:32] LABS: Absolute Lymphocyte Count 0.49 X10^3/uL (0.83-4.51); Absolute Neutrophil Count 4.4 X10^3/uL (2.0-7.7); Basophil# 0.03 X10^3/uL; Basophil% 0.5 % (0-1); Eosinophil# 0.11 X10^3/uL; Hematocrit 34.7 % (37-47); Hemoglobin 10.9 g/dL (12.0-15.0); Lymphocyte # 0.49 X10^3/ul (0.83-4.51); Lymphocyte % 8.8 % (19-41); Mean Corp Hgb Conc 31.4 g/dL (32-36); Mean Corpuscular Volume 82.8 fL (81-99); Mean Platelet Vol. 10.9 fl (6.2-12.0); NRBC Flagged by Analyzer 0 % (0-5); Neutrophil # 4.38 X10^3/uL (2.7-7.7); Neutrophil % 79.2 % (47-70); POSITIVE DIFFERENTIAL YES; Platelet Count 406 K/mm3 (150-450); RBC Distribution Width CV 15.4 % (11.6-14.6); RBC Distribution Width SD 46.5 fl (35.1-43.9); Red Blood Count 4.19 M/mm3 (4.2-5.4); White Blood Count 5.5 K/mm3 (4.4-11.0)
[2021-12-24 10:44] LABS: ALB/GLOB Ratio 0.7 RATIO (0.9-2.4); AST(SGOT) 9 U/L (15-37); Alanine Aminotransfer ALT/SGPT 12 U/L (13-56); Albumin, Serum 2.9 g/dL (3.2-5.0); Alkaline Phosphatase 81 U/L (45-117); Anion Gap 4 (5-15); BUN 12 mg/dL (7-18); BUN/Creat Ratio 15.4 RATIO (10-20); Calcium,Total 8.4 mg/dL (8.5-10.1); Chloride 109 mmol/L (98-107); Creatinine, Serum 0.78 mg/dL (0.55-1.02); EST Glomerular Filtration Rate 89 mL/min (>60); Est Glom Filt Rate - Afr Amer 108 mL/min (>60); Glucose 81 mg/dL (74-106); Potassium 3.6 mmol/L (3.5-5.1); Protein, Total 6.9 g/dL (6.4-8.2); Sodium Level 139 mmol/L (136-145)
[2021-12-24 10:46] LABS: Protein, Urine (Random) 252.2 mg/dL (<11.9); Protein:Creat Ratio 1274 mg/g CRE (0-200)
[2021-12-24 10:53] LABS: Differential Indicated SCAN CRITERIA MET
[2021-12-25 15:14] LABS: Anti-dsDNA Ab 55 IU/mL (0-9)
[2021-12-25 15:15] LABS: Complement C3 109 mg/dL (82-167)
== END 2021-12-24 23:59 | disposition home or self-care (01) ==
LOC: MTLAB 08:11
PROVIDERS: PCP Family Medicine; Referring Provider Internal Medicine Rheumatology; Visit Provider Internal Medicine Rheumatology
DX: M32.9 Systemic lupus erythematosus, unspecified (principal); I10 Essential (primary) hypertension; Z79.52 Long term (current) use of systemic steroids
CPT/HCPCS: 36415; 80053; 81002; 82570; 84156; 85025; 86160; 86225

== ENCOUNTER 2022-01-15 16:45 | Outpatient (CLI) | payer BC, SELFPAY ==
[2022-01-15 17:36] LABS: Hematocrit 34.5 % (37-47); Hemoglobin 11.2 g/dL (12.0-15.0); Mean Corp Hgb Conc 32.5 g/dL (32-36); Mean Corpuscular Hgb 25.7 pg (27.0-32.0); Mean Corpuscular Volume 79.3 fL (81-99); Platelet Count 388 K/mm3 (150-450); RBC Distribution Width CV 14.6 % (11.6-14.6); RBC Distribution Width SD 42.3 fl (35.1-43.9); Red Blood Count 4.35 M/mm3 (4.2-5.4); White Blood Count 4.3 K/mm3 (4.4-11.0)
[2022-01-15 18:10] LABS: Albumin, Serum 3.2 g/dL (3.2-5.0); BUN 12 mg/dL (7-18); BUN/Creat Ratio 13.4 RATIO (10-20); Calcium,Total 8.1 mg/dL (8.5-10.1); Chloride 110 mmol/L (98-107); EST Glomerular Filtration Rate 76 mL/min (>60); Est Glom Filt Rate - Afr Amer 92 mL/min (>60); Glucose 88 mg/dL (74-106); Iron 26 ug/dL (50-170); Iron Binding Capacity,Total 280 ug/dL (250-450); PERCENT IRON SATURATION 9.3 % (15.0-55.0); Phosphorus 2.6 mg/dL (2.5-4.9); Potassium 3.7 mmol/L (3.5-5.1); Sodium Level 138 mmol/L (136-145)
[2022-01-15 18:11] LABS: Protein:Creat Ratio 322 mg/g CRE (0-200)
== END 2022-01-15 23:59 | disposition home or self-care (01) ==
LOC: MTLAB 16:46
PROVIDERS: PCP Family Medicine; Referring Provider Internal Medicine Nephrology; Visit Provider Internal Medicine Nephrology
DX: M32.14 Glomerular disease in systemic lupus erythematosus (principal); D50.9 Iron deficiency anemia, unspecified; R80.9 Proteinuria, unspecified
CPT/HCPCS: 36415; 80069; 82570; 83540; 83550; 84156; 85027

== ENCOUNTER → 2022-02-11 | Outpatient (CLI) | payer BC, SELFPAY ==
[2022-02-11 09:54] LABS: Absolute Lymphocyte Count 1.04 X10^3/uL (0.83-4.51); Absolute Neutrophil Count 4.4 X10^3/uL (2.0-7.7); Basophil# 0.05 X10^3/uL; Basophil% 0.8 % (0-1); Eosinophil# 0.14 X10^3/uL; Eosinophils% 2.2 % (0-5); Hematocrit 32.5 % (37-47); Hemoglobin 10.2 g/dL (12.0-15.0); Lymphocyte # 1.04 X10^3/ul (0.83-4.51); Lymphocyte % 16.3 % (19-41); Mean Corp Hgb Conc 31.4 g/dL (32-36); Mean Corpuscular Hgb 25.4 pg (27.0-32.0); Monocyte# 0.74 X10^3/uL; Monocyte% 11.6 % (0-10); NRBC Flagged by Analyzer 0 % (0-5); Neutrophil # 4.35 X10^3/uL (2.7-7.7); Neutrophil % 68.2 % (47-70); Platelet Count 348 K/mm3 (150-450); RBC Distribution Width CV 15.5 % (11.6-14.6); RBC Distribution Width SD 45.1 fl (35.1-43.9); Red Blood Count 4.01 M/mm3 (4.2-5.4); White Blood Count 6.4 K/mm3 (4.4-11.0)
[2022-02-11 09:58] LABS: Color, Urine Yellow (Yellow); Glucose, Dipstick Normal (Normal); Ketone-Dipstick Negative (Negative); Leukocyte Esterase-Dipstick Negative /ul (Negative); Nitrite-Dipstick Negative (Negative); Occult Blood-Urine 25 /ul (Negative); Protein-Dipstick 100 mg/dl (Negative); Urine Bilirubin Dipstick Negative (Negative); Urine Clarity Clear (Clear); Urine Urobilinogen Normal (Normal)
[2022-02-11 10:25] LABS: ALB/GLOB Ratio 0.8 RATIO (0.9-2.4); AST(SGOT) 8 U/L (15-37); Alanine Aminotransfer ALT/SGPT 13 U/L (13-56); Albumin, Serum 2.8 g/dL (3.2-5.0); Alkaline Phosphatase 62 U/L (45-117); Anion Gap 6 (5-15); BUN 12 mg/dL (7-18); BUN/Creat Ratio 14.7 RATIO (10-20); Calcium,Total 8.3 mg/dL (8.5-10.1); Chloride 110 mmol/L (98-107); Creatinine, Serum 0.82 mg/dL (0.55-1.02); EST Glomerular Filtration Rate 85 mL/min (>60); Est Glom Filt Rate - Afr Amer 103 mL/min (>60); Ferritin 48 ng/mL (8-252); Globulin 3.6 g/dL (2.2-4.2); Glucose 83 mg/dL (74-106); Iron 44 ug/dL (50-170); Iron Binding Capacity,Total 214 ug/dL (250-450); Potassium 3.4 mmol/L (3.5-5.1); Protein, Total 6.4 g/dL (6.4-8.2); Sodium Level 141 mmol/L (136-145)
[2022-02-11 13:48] LABS: Protein, Urine (Random) 72.3 mg/dL (<11.9); Protein:Creat Ratio 461 mg/g CRE (0-200)
[2022-02-12 16:00] LABS: Anti-dsDNA Ab 51 IU/mL (0-9)
[2022-02-14 19:07] LABS: QNTFERON TB Mitogen Value 2.89 IU/mL (.); QNTFERON TB Nil Value 0.05 IU/mL (.); QNTFERON TB1+ Ag Value 0.04 IU/mL (.); QNTFERON TB2+ Ag Value 0.03 IU/mL (.)
[2022-02-15 14:31] LABS: Complement C3 96 mg/dL (82-167); QNTIFERON TB Positive Criteria Negative (Negative)
== END | disposition home or self-care (01) ==
PROVIDERS: PCP Family Medicine; Referring Provider Internal Medicine Nephrology; Visit Provider Internal Medicine Nephrology
DX: M32.9 Systemic lupus erythematosus, unspecified (principal); I10 Essential (primary) hypertension; D50.9 Iron deficiency anemia, unspecified; Z79.52 Long term (current) use of systemic steroids
CPT/HCPCS: 36415; 80053; 81002; 82570; 82728; 83540; 83550; 84156; 85025; 86160; 86225; 86480

== ENCOUNTER → 2022-02-24 | Outpatient (CLI) | payer BC, SELFPAY ==
[2022-02-24] MEDS: 0.9% NaCl IVPB Med Flush (250 mL) 15 ML IV (13:12)
[2022-02-24] MEDS: 0.9% NaCl Peripheral Flush Adult/Peds IV (13:15)
[2022-02-24] MEDS: Sodium Ferric Gluconat 250 MG in 0.9% Normal Saline 250 ML 135 MG IV (13:17)
[2022-02-24 13:20] VITALS: BP 118/73; PULSE 100; RESP 16; TEMP 37; O2SAT 100; BMI 23.1
== END | disposition home or self-care (01) ==
LOC: MEDOUTP 12:55
PROVIDERS: PCP Family Medicine; Referring Provider Internal Medicine Nephrology; Visit Provider Internal Medicine Nephrology
DX: D64.9 Anemia, unspecified (principal)
CPT/HCPCS: 96365; 96366; J7050; A4216; J2916

== ENCOUNTER → 2022-03-10 | Outpatient (CLI) | payer BC, SELFPAY ==
[2022-03-10] MEDS: 0.9% NaCl IVPB Med Flush (250 mL) 15 ML IV (12:41)
[2022-03-10] MEDS: Sodium Ferric Gluconat 250 MG in 0.9% Normal Saline 250 ML 135 MG IV (12:41)
[2022-03-10] MEDS: 0.9% NaCl Peripheral Flush Adult/Peds IV (12:41)
[2022-03-10 15:16] VITALS: BP 131/82; PULSE 68; RESP 14; TEMP 36.4; O2SAT 100
== END | disposition home or self-care (01) ==
LOC: MEDOUTP 12:26
PROVIDERS: PCP Family Medicine; Referring Provider Internal Medicine Nephrology; Visit Provider Internal Medicine Nephrology
DX: D64.9 Anemia, unspecified (principal)
CPT/HCPCS: 96365; 96366 ×2; J7050; A4216; J2916

== ENCOUNTER → 2022-03-19 | Outpatient (CLI) | payer BC, SELFPAY ==
[2022-03-19 13:18] VITALS: BP 127/82; PULSE 60; RESP 16; TEMP 36.1; O2SAT 100; BMI 23.6
[2022-03-19] MEDS: 0.9% NaCl Peripheral Flush Adult/Peds IV (13:25)
[2022-03-19] MEDS: 0.9% NaCl IVPB Med Flush (250 mL) 15 ML IV (14:08)
[2022-03-19] MEDS: Sodium Ferric Gluconat 250 MG in 0.9% Normal Saline 250 ML 135 MG IV (14:08)
== END | disposition home or self-care (01) ==
LOC: MEDOUTP 13:08
PROVIDERS: PCP Family Medicine; Referring Provider Internal Medicine Nephrology; Visit Provider Internal Medicine Nephrology
DX: D64.9 Anemia, unspecified (principal)
CPT/HCPCS: 96365; 96366; J7050; A4216; J2916

== ENCOUNTER → 2022-03-31 | Outpatient (CLI) | payer BC, SELFPAY ==
[2022-03-31] MEDS: 0.9% NaCl Peripheral Flush Adult/Peds IV (12:59)
[2022-03-31] MEDS: 0.9% NaCl IVPB Med Flush (250 mL) 15 ML IV (13:00)
[2022-03-31 13:10] VITALS: BP 121/64; PULSE 90; RESP 12; TEMP 35.8; O2SAT 96; BMI 23.3
[2022-03-31] MEDS: Sodium Ferric Gluconat 250 MG in 0.9% Normal Saline 250 ML 135 MG IV (13:10)
[2022-03-31 15:54] VITALS: BP 124/70; PULSE 69; RESP 12; TEMP 35.9
== END | disposition home or self-care (01) ==
LOC: MEDOUTP 12:45
PROVIDERS: PCP Family Medicine; Referring Provider Internal Medicine Nephrology; Visit Provider Internal Medicine Nephrology
DX: D64.9 Anemia, unspecified (principal)
CPT/HCPCS: 96365; 96366; J7050; A4216; J2916

== ENCOUNTER → 2022-05-12 | Outpatient (CLI) | payer BC, SELFPAY ==
[2022-05-12 17:52] LABS: Hematocrit 31.9 % (37-47); Hemoglobin 9.8 g/dL (12.0-15.0); Mean Corp Hgb Conc 30.7 g/dL (32-36); Mean Corpuscular Hgb 25.4 pg (27.0-32.0); Mean Corpuscular Volume 82.6 fL (81-99); Mean Platelet Vol. 10.8 fl (6.2-12.0); Platelet Count 380 K/mm3 (150-450); RBC Distribution Width CV 14.8 % (11.6-14.6); RBC Distribution Width SD 44.1 fl (35.1-43.9); Red Blood Count 3.86 M/mm3 (4.2-5.4); White Blood Count 5.6 K/mm3 (4.4-11.0)
[2022-05-12 17:54] LABS: Protein:Creat Ratio 246 mg/g CRE (0-200)
[2022-05-12 18:09] LABS: Albumin, Serum 3.2 g/dL (3.2-5.0); BUN 12 mg/dL (7-18); BUN/Creat Ratio 12.6 RATIO (10-20); Calcium,Total 8.6 mg/dL (8.5-10.1); Chloride 111 mmol/L (98-107); Creatinine, Serum 0.96 mg/dL (0.55-1.02); EST Glomerular Filtration Rate 71 mL/min (>60); Est Glom Filt Rate - Afr Amer 86 mL/min (>60); Ferritin 500 ng/mL (8-252); Glucose 79 mg/dL (74-106); Iron 34 ug/dL (50-170); Iron Binding Capacity,Total 168 ug/dL (250-450); PERCENT IRON SATURATION 20.2 % (15.0-55.0); Phosphorus 1.7 mg/dL (2.5-4.9); Potassium 3.9 mmol/L (3.5-5.1); Sodium Level 140 mmol/L (136-145)
== END | disposition home or self-care (01) ==
PROVIDERS: PCP Family Medicine; Referring Provider Internal Medicine Nephrology
DX: M32.14 Glomerular disease in systemic lupus erythematosus (principal); D50.9 Iron deficiency anemia, unspecified; R80.9 Proteinuria, unspecified
CPT/HCPCS: 36415; 80069; 82570; 82728; 83540; 83550; 84156; 85027

== ENCOUNTER → 2022-07-09 | Outpatient (CLI) | payer BC, SELFPAY ==
[2022-07-09 07:50] LABS: Bacteria 0 SEEN /hpf (None Seen); Mucous, Urine 0 SEEN /hpf (<or=2+); Red Blood Cells-Urine 0 SEEN /hpf (0-5)
[2022-07-09 10:03] LABS: Color, Urine Yellow (Yellow); Glucose, Dipstick Normal (Normal); Ketone-Dipstick Negative (Negative); Leukocyte Esterase-Dipstick 25 /ul (Negative); Nitrite-Dipstick Negative (Negative); Occult Blood-Urine Negative /ul (Negative); Protein-Dipstick 30 mg/dl (Negative); Urine Bilirubin Dipstick Negative (Negative); Urine Clarity Sl. Cloudy (Clear); Urine Urobilinogen Normal (Normal)
[2022-07-09 10:05] LABS: Absolute Lymphocyte Count 0.46 X10^3/uL (0.83-4.51); Absolute Neutrophil Count 2.8 X10^3/uL (2.0-7.7); Basophil# 0.04 X10^3/uL; Eosinophil# 0.08 X10^3/uL; Eosinophils% 2.1 % (0-5); Hematocrit 37.9 % (37-47); Hemoglobin 11.6 g/dL (12.0-15.0); Lymphocyte # 0.46 X10^3/ul (0.83-4.51); Mean Corp Hgb Conc 30.6 g/dL (32-36); Mean Corpuscular Hgb 26.2 pg (27.0-32.0); Mean Corpuscular Volume 85.6 fL (81-99); Mean Platelet Vol. 10.2 fl (6.2-12.0); Monocyte# 0.48 X10^3/uL; Monocyte% 12.5 % (0-10); NRBC Flagged by Analyzer 0 % (0-5); Neutrophil # 2.75 X10^3/uL (2.7-7.7); Neutrophil % 71.9 % (47-70); POSITIVE DIFFERENTIAL YES; Platelet Count 341 K/mm3 (150-450); RBC Distribution Width CV 15.2 % (11.6-14.6); RBC Distribution Width SD 47.1 fl (35.1-43.9); Red Blood Count 4.43 M/mm3 (4.2-5.4); White Blood Count 3.8 K/mm3 (4.4-11.0)
[2022-07-09 10:11] LABS: Differential Indicated SCAN CRITERIA MET
[2022-07-09 10:16] LABS: Squamous Epithelial Cells - UA 0-5 SEEN /hpf (5-10); White Blood Cells 5-10 SEEN /hpf (0-5)
[2022-07-09 10:37] LABS: ALB/GLOB Ratio 0.8 RATIO (0.9-2.4); AST(SGOT) 12 U/L (15-37); Alanine Aminotransfer ALT/SGPT 15 U/L (13-56); Albumin, Serum 3.4 g/dL (3.2-5.0); Alkaline Phosphatase 81 U/L (45-117); Anion Gap 9 (5-15); BUN 10 mg/dL (7-18); BUN/Creat Ratio 7.6 RATIO (10-20); Calcium,Total 9.3 mg/dL (8.5-10.1); Chloride 109 mmol/L (98-107); Creatinine, Serum 1.31 mg/dL (0.55-1.02); EST Glomerular Filtration Rate 49 mL/min (>60); Est Glom Filt Rate - Afr Amer 59 mL/min (>60); Globulin 4.2 g/dL (2.2-4.2); Glucose 83 mg/dL (74-106); Potassium 4.1 mmol/L (3.5-5.1); Protein, Total 7.6 g/dL (6.4-8.2); Sodium Level 140 mmol/L (136-145)
[2022-07-09 10:51] LABS: Platelet Estimate ADEQUATE (ADEQ); Red Cell Morphology NORM C+C NORMAL (NORM C&C)
[2022-07-09 11:37] LABS: Protein, Urine (Random) 38.1 mg/dL (<11.9); Protein:Creat Ratio 163 mg/g CRE (0-200)
[2022-07-10 07:41] LABS: Complement C3 101 mg/dL (82-167)
[2022-07-12 09:04] LABS: Pathologist Review Reviewed
[2022-07-13 16:21] LABS: Anti-dsDNA Ab 53 IU/mL (0-9)
== END | disposition home or self-care (01) ==
LOC: MTLAB 07:42
PROVIDERS: PCP Family Medicine; Referring Provider Internal Medicine Rheumatology; Visit Provider Internal Medicine Rheumatology
DX: M32.9 Systemic lupus erythematosus, unspecified (principal); Z79.52 Long term (current) use of systemic steroids; I10 Essential (primary) hypertension
CPT/HCPCS: 36415; 80053; 81001; 82570; 84156; 85025; 86160; 86225

== ENCOUNTER → 2022-08-04 | Outpatient (CLI) | payer BC, SELFPAY ==
[2022-08-04 17:39] LABS: Absolute Lymphocyte Count 0.67 X10^3/uL (0.83-4.51); Absolute Neutrophil Count 2.5 X10^3/uL (2.0-7.7); Basophil# 0.03 X10^3/uL; Basophil% 0.8 % (0-1); Eosinophil# 0.04 X10^3/uL; Eosinophils% 1.1 % (0-5); Hematocrit 33.1 % (37-47); Hemoglobin 10.7 g/dL (12.0-15.0); Lymphocyte # 0.67 X10^3/ul (0.83-4.51); Lymphocyte % 18.4 % (19-41); Mean Corp Hgb Conc 32.3 g/dL (32-36); Mean Corpuscular Hgb 26.1 pg (27.0-32.0); Mean Corpuscular Volume 80.7 fL (81-99); Mean Platelet Vol. 10.2 fl (6.2-12.0); NRBC Flagged by Analyzer 0 % (0-5); Neutrophil # 2.48 X10^3/uL (2.7-7.7); Neutrophil % 68.2 % (47-70); Platelet Count 367 K/mm3 (150-450); RBC Distribution Width SD 41.2 fl (35.1-43.9); White Blood Count 3.6 K/mm3 (4.4-11.0)
[2022-08-04 17:50] LABS: Color, Urine Yellow (Yellow); Glucose, Dipstick Normal (Normal); Ketone-Dipstick 5 mg/dl (Negative); Leukocyte Esterase-Dipstick 25 /ul (Negative); Nitrite-Dipstick Negative (Negative); Occult Blood-Urine Negative /ul (Negative); Protein-Dipstick 100 mg/dl (Negative); Specific Gravity, Urine 1.015 (1.002-1.030); Urine Bilirubin Dipstick Negative (Negative); Urine Clarity Clear (Clear); Urine Urobilinogen Normal (Normal)
[2022-08-04 17:54] LABS: ALB/GLOB Ratio 0.9 RATIO (0.9-2.4); AST(SGOT) 7 U/L (15-37); Alanine Aminotransfer ALT/SGPT 10 U/L (13-56); Albumin, Serum 3.6 g/dL (3.2-5.0); Alkaline Phosphatase 71 U/L (45-117); Anion Gap 5 (5-15); BUN 10 mg/dL (7-18); BUN/Creat Ratio 11.6 RATIO (10-20); Chloride 109 mmol/L (98-107); Creatinine, Serum 0.86 mg/dL (0.55-1.02); EST Glomerular Filtration Rate 80 mL/min (>60); Est Glom Filt Rate - Afr Amer 96 mL/min (>60); Globulin 3.9 g/dL (2.2-4.2); Glucose 86 mg/dL (74-106); Potassium 3.8 mmol/L (3.5-5.1); Protein, Total 7.5 g/dL (6.4-8.2); Sodium Level 139 mmol/L (136-145)
[2022-08-04 18:02] LABS: Protein, Urine (Random) 76.8 mg/dL (<11.9); Protein:Creat Ratio 468 mg/g CRE (0-200)
[2022-08-07 13:56] LABS: Anti-dsDNA Ab 60 IU/mL (0-9)
[2022-08-07 14:32] LABS: Complement C3 111 mg/dL (82-167)
== END | disposition home or self-care (01) ==
LOC: MTLAB 16:31
PROVIDERS: PCP Family Medicine; Referring Provider Internal Medicine Rheumatology; Visit Provider Internal Medicine Rheumatology
DX: M32.9 Systemic lupus erythematosus, unspecified (principal); Z79.52 Long term (current) use of systemic steroids; I10 Essential (primary) hypertension
CPT/HCPCS: 36415; 80053; 81002; 82570; 84156; 85025; 86160; 86225

== ENCOUNTER → 2022-10-06 | Outpatient (CLI) | payer BC, SELFPAY ==
[2022-10-17 20:54] LABS: HPV APTIMA, High Risk Positive (Negative)
== END | disposition home or self-care (01) ==
LOC: LABSPEC 10:49
PROVIDERS: PCP Family Medicine; Visit Provider Student in an Organized Health Care Education/Training Program
DX: Z12.4 Encounter for screening for malignant neoplasm of cervix (principal)
CPT/HCPCS: 87624; 88175; G0145

== ENCOUNTER → 2022-11-23 | Outpatient (CLI) | payer BC, SELFPAY ==
--- NOTE | 2022-11-23 | CER_PTH ---
PATIENT: COCO MIRANDA LOC: [facility]#:[id number] AGE/SX: 37/F ROOM: RE11/23/[address]: Dr. Deneen Ayala DO : 1985 BED: DIS: 11/23/2022 SPEC #: [id number] RECD: 11/24/22 10:52 STATUS: RUSS REMarianela #: [id number] MONIQUE: 11/23/22 00:[address]: Deneen Ayala DEPT: SURGICAL PATHOLOGY RECD BY: Tristian Cerda ENTERED: 11/24/22 10:52 SP TYPE: CERV OTHR DR: Dr. Kt Arroyo, DO Tissues: A - Uterine cervix, NOS B - Endocervical Procedures: Surgery Specimen Level IV HEADER OPERATION: Colposcopy & ECC PRE-OP DIAGNOSIS: HPV positive TISSUE SUBMITTED: A ? Cervical biopsy, 3, 6, 9, 12 o?clock, B ? Endocervical curettings MICROSCOPIC DIAGNOSIS A. Cervix, 3, 6, 9 and 12 o?clock, biopsy: Focal changes consistent with HPV cytopathic effects. Acute and chronic inflammation. See comment. B. Endocervical curettings: Fragments of benign ecto- and endocervical epithelium, negative for dysplasia. SEGUN:tari 11/25/2022 COMMENT A. Immunohistochemistry ([id number]) for surrogate HPV marker (p16) supports the above diagnosis. MICROSCOPIC DESCRIPTION Slides are reviewed. GROSS DESCRIPTION A - Received in fixative is one container labeled with the patient's name and designated Cervical biopsy 3, 6, 9, 12 o'clock. The specimen consists of multiple irregular fragments of light lopez soft tissue that in aggregate measure 1 x 0.5 x 0.1 cm. The specimen is totally submitted in one cassette. B - Received in fixative is one container labeled with the patient's name and designated ECC. The specimen consists of a scant amount of soft tissue. The specimen is totally submitted for cell block preparation. / SEGUN:tari 11/24/2022 TC:5 CPT: 93886 x2
--- NOTE | 2022-11-23 | IMM_PTH ---
PATIENT: COCO MIRANDA LOC: [facility] U#:[id number] AGE/SX: 37/F ROOM: RE11/23/[address]: Dr. Deneen Ayala DO : 1985 BED: DIS: 11/23/2022 SPEC #: [id number] RECD: 11/25/22 14:20 STATUS: RUSS REQ #: [id number] MONIQUE: 11/23/22 00:[address]: Deneen Ayala DEPT: IMMUNOHISTOCHEMISTRY RECD BY: Catalina Mcdonnell ENTERED: 11/25/22 14:21 SP TYPE: IMMUNO OTHR DR: Dr. Kt Arroyo, DO Tissues: A - Uterine cervix, NOS Procedures: p16 (initial) KI-67 (add) PHYSICIAN & INSTITUTION [place] [id number] SPECIMEN INFORMATION: Tissue Source: A ? Cervix at 3, 6, 9 & 12 o?clock Clinical Info: HPV positive Specimen Number: [id number] CPT code: 56939, 27071 METHODOLOGY: Deparaffinized sections of prefer/formalin-fixed tissue or PAP/DQ stained slides are incubated with monoclonal/polyclonal antibodies/oligonucleotide probes. Localization is made via biotin free immunoperoxidase method. Appropriate controls are performed and reacted as expected. Results on target cell population are indicated in the following table: RESULTS: ANTIBODY / CLONE RESULT Block A P16 (E6H4) positive, focal patchy staining Ki-67 (30-9) positive, low These tests were developed and their performance characteristics determined by [facility]. They may not have been cleared or approved by the U.S. Food and Drug Administration. The FDA has determined that such clearance or approval is not necessary. The above immunohistochemical/dualISH markers are ordered and reviewed by the Pathologist. INTERPRETATION: A. Cervix at 3, 6, 9 & 12 o?clock, biopsy: Focal changes consistent with HPV cytopathic effects. SJ:tari 11/26/2022
== END | disposition home or self-care (01) ==
LOC: LABSPEC 15:50
PROVIDERS: PCP Family Medicine; Visit Provider Student in an Organized Health Care Education/Training Program
DX: R87.610 Atypical squamous cells of undetermined significance on cytologic smear of cervix (ASC-US) (principal)
CPT/HCPCS: 88305; 88341; 88342

== ENCOUNTER → 2022-12-01 | Outpatient (CLI) | payer BC, SELFPAY ==
[2022-12-01 14:56] LABS: Hematocrit 34.9 % (37-47); Hemoglobin 10.7 g/dL (12.0-15.0); Mean Corp Hgb Conc 30.7 g/dL (32-36); Mean Corpuscular Hgb 25.7 pg (27.0-32.0); Mean Corpuscular Volume 83.9 fL (81-99); Mean Platelet Vol. 10.5 fl (6.2-12.0); Platelet Count 291 K/mm3 (150-450); RBC Distribution Width CV 14.6 % (11.6-14.6); RBC Distribution Width SD 44.5 fl (35.1-43.9); Red Blood Count 4.16 M/mm3 (4.2-5.4); White Blood Count 3.7 K/mm3 (4.4-11.0)
[2022-12-01 15:23] LABS: Albumin, Serum 2.9 g/dL (3.2-5.0); BUN 12 mg/dL (7-18); BUN/Creat Ratio 16.6 RATIO (10-20); Calcium,Total 8.4 mg/dL (8.5-10.1); Chloride 111 mmol/L (98-107); Creatinine, Serum 0.72 mg/dL (0.55-1.02); EST Glomerular Filtration Rate 98 mL/min (>60); Est Glom Filt Rate - Afr Amer 118 mL/min (>60); Ferritin 267 ng/mL (8-252); Glucose 79 mg/dL (74-106); Iron 79 ug/dL (50-170); Iron Binding Capacity,Total 201 ug/dL (250-450); Phosphorus 2.5 mg/dL (2.5-4.9); Potassium 3.9 mmol/L (3.5-5.1); Sodium Level 141 mmol/L (136-145)
[2022-12-01 15:29] LABS: Protein, Urine (Random) 81.1 mg/dL (<11.9); Protein:Creat Ratio 548 mg/g CRE (0-200)
== END | disposition home or self-care (01) ==
PROVIDERS: PCP Family Medicine; Visit Provider Internal Medicine Nephrology
DX: M32.14 Glomerular disease in systemic lupus erythematosus (principal); D50.9 Iron deficiency anemia, unspecified
CPT/HCPCS: 36415; 80069; 82570; 82728; 83540; 83550; 84156; 85027

== ENCOUNTER → 2022-12-21 | Outpatient (CLI) | payer BC, SELFPAY ==
[2022-12-21 17:47] LABS: Absolute Lymphocyte Count 0.55 X10^3/uL (0.83-4.51); Absolute Neutrophil Count 2.1 X10^3/uL (2.0-7.7); Basophil# 0.02 X10^3/uL; Basophil% 0.7 % (0-1); Eosinophil# 0.05 X10^3/uL; Eosinophils% 1.7 % (0-5); Hematocrit 32.7 % (37-47); Hemoglobin 9.9 g/dL (12.0-15.0); Lymphocyte # 0.55 X10^3/ul (0.83-4.51); Lymphocyte % 18.2 % (19-41); Mean Corp Hgb Conc 30.3 g/dL (32-36); Mean Corpuscular Hgb 25.1 pg (27.0-32.0); Mean Platelet Vol. 10.2 fl (6.2-12.0); Monocyte% 9.9 % (0-10); NRBC Flagged by Analyzer 0 % (0-5); Neutrophil # 2.05 X10^3/uL (2.7-7.7); Neutrophil % 67.5 % (47-70); POSITIVE DIFFERENTIAL YES; Platelet Count 352 K/mm3 (150-450); RBC Distribution Width CV 14.7 % (11.6-14.6); RBC Distribution Width SD 44.6 fl (35.1-43.9); Red Blood Count 3.94 M/mm3 (4.2-5.4)
[2022-12-21 17:53] LABS: Color, Urine Yellow (Yellow); Glucose, Dipstick Normal (Normal); Ketone-Dipstick 5 mg/dl (Negative); Leukocyte Esterase-Dipstick 25 /ul (Negative); Nitrite-Dipstick Positive (Negative); Occult Blood-Urine 10 /ul (Negative); Protein-Dipstick 100 mg/dl (Negative); Urine Bilirubin Dipstick Negative (Negative); Urine Clarity Sl. Cloudy (Clear); Urine Urobilinogen Normal (Normal)
[2022-12-21 18:07] LABS: Differential Indicated SCAN CRITERIA MET
[2022-12-21 18:08] LABS: Protein, Urine (Random) 143.6 mg/dL (<11.9); Protein:Creat Ratio 635 mg/g CRE (0-200)
[2022-12-21 18:32] LABS: ALB/GLOB Ratio 0.9 RATIO (0.9-2.4); AST(SGOT) 8 U/L (15-37); Alanine Aminotransfer ALT/SGPT 10 U/L (13-56); Albumin, Serum 3.3 g/dL (3.2-5.0); Alkaline Phosphatase 75 U/L (45-117); Anion Gap 7 (5-15); BUN 10 mg/dL (7-18); Calcium,Total 8.5 mg/dL (8.5-10.1); Chloride 107 mmol/L (98-107); Creatinine, Serum 0.83 mg/dL (0.55-1.02); EST Glomerular Filtration Rate 82 mL/min (>60); Est Glom Filt Rate - Afr Amer 100 mL/min (>60); Globulin 3.6 g/dL (2.2-4.2); Glucose 82 mg/dL (74-106); Protein, Total 6.9 g/dL (6.4-8.2); Sodium Level 137 mmol/L (136-145)
[2022-12-21 19:01] LABS: Differential Comment SCANNED
[2022-12-23 09:19] LABS: Pathologist Review Reviewed
[2022-12-23 13:08] LABS: QNTFERON TB Mitogen Value 6.51 IU/mL (.); QNTFERON TB Nil Value 0.14 IU/mL (.); QNTFERON TB1+ Ag Value 0.13 IU/mL (.); QNTFERON TB2+ Ag Value 0.14 IU/mL (.)
[2022-12-23 18:42] LABS: Anti-dsDNA Ab 58 IU/mL (0-9)
[2022-12-23 18:51] LABS: Complement C3 103 mg/dL (82-167); QNTIFERON TB Positive Criteria Negative (Negative)
== END | disposition home or self-care (01) ==
LOC: MTLAB 16:17
PROVIDERS: PCP Family Medicine; Referring Provider Internal Medicine Rheumatology; Visit Provider Internal Medicine Rheumatology
DX: M32.9 Systemic lupus erythematosus, unspecified (principal); Z79.52 Long term (current) use of systemic steroids; I10 Essential (primary) hypertension
CPT/HCPCS: 36415; 80053; 81002; 82570; 84156; 85025; 86160; 86225; 86480

== ENCOUNTER → 2023-01-21 | Outpatient (CLI) | payer BC, SELFPAY ==
[2023-01-21 10:09] LABS: Protein, Urine (Random) 40.9 mg/dL (<11.9); Protein:Creat Ratio 188 mg/g CRE (0-200)
[2023-01-21 10:12] LABS: Albumin, Serum 3.2 g/dL (3.2-5.0); BUN 15 mg/dL (7-18); BUN/Creat Ratio 14.9 RATIO (10-20); Calcium,Total 8.8 mg/dL (8.5-10.1); Chloride 110 mmol/L (98-107); Creatinine, Serum 1.01 mg/dL (0.55-1.02); EST Glomerular Filtration Rate 66 mL/min (>60); Est Glom Filt Rate - Afr Amer 80 mL/min (>60); Glucose 82 mg/dL (74-106); Phosphorus 2.9 mg/dL (2.5-4.9); Potassium 4.1 mmol/L (3.5-5.1); Sodium Level 136 mmol/L (136-145)
== END | disposition home or self-care (01) ==
LOC: MTLAB 08:24
PROVIDERS: PCP Family Medicine; Referring Provider Internal Medicine Nephrology; Visit Provider Internal Medicine Nephrology
DX: M32.14 Glomerular disease in systemic lupus erythematosus (principal); R80.9 Proteinuria, unspecified; D50.9 Iron deficiency anemia, unspecified
CPT/HCPCS: 36415; 80069; 82570; 84156

== ENCOUNTER → 2023-02-01 | Outpatient (CLI) | payer BC, SELFPAY ==
[2023-02-01 17:48] LABS: Absolute Lymphocyte Count 0.55 X10^3/uL (0.83-4.51); Absolute Neutrophil Count 2.9 X10^3/uL (2.0-7.7); Basophil# 0.01 X10^3/uL; Basophil% 0.3 % (0-1); Eosinophil# 0.05 X10^3/uL; Eosinophils% 1.3 % (0-5); Hematocrit 32.1 % (37-47); Hemoglobin 9.9 g/dL (12.0-15.0); Lymphocyte # 0.55 X10^3/ul (0.83-4.51); Lymphocyte % 13.9 % (19-41); Mean Corp Hgb Conc 30.8 g/dL (32-36); Mean Corpuscular Hgb 25.3 pg (27.0-32.0); Mean Corpuscular Volume 82.1 fL (81-99); Monocyte# 0.39 X10^3/uL; Monocyte% 9.8 % (0-10); NRBC Flagged by Analyzer 0 % (0-5); Neutrophil # 2.94 X10^3/uL (2.7-7.7); Neutrophil % 73.9 % (47-70); POSITIVE DIFFERENTIAL YES; Platelet Count 330 K/mm3 (150-450); RBC Distribution Width CV 14.6 % (11.6-14.6); RBC Distribution Width SD 43.5 fl (35.1-43.9); Red Blood Count 3.91 M/mm3 (4.2-5.4)
[2023-02-01 18:02] LABS: Differential Indicated SCAN CRITERIA MET
[2023-02-01 18:05] LABS: Color, Urine Yellow (Yellow); Glucose, Dipstick Normal (Normal); Ketone-Dipstick 5 mg/dl (Negative); Leukocyte Esterase-Dipstick 100 /ul (Negative); Nitrite-Dipstick Negative (Negative); Occult Blood-Urine Negative /ul (Negative); Protein-Dipstick 30 mg/dl (Negative); Urine Bilirubin Dipstick Negative (Negative); Urine Clarity Sl. Cloudy (Clear); Urine Urobilinogen Normal (Normal)
[2023-02-01 18:37] LABS: Protein, Urine (Random) 46.3 mg/dL (<11.9); Protein:Creat Ratio 328 mg/g CRE (0-200)
[2023-02-01 19:05] LABS: ALB/GLOB Ratio 0.9 RATIO (0.9-2.4); AST(SGOT) 12 U/L (15-37); Alanine Aminotransfer ALT/SGPT 11 U/L (13-56); Albumin, Serum 3.5 g/dL (3.2-5.0); Alkaline Phosphatase 68 U/L (45-117); Anion Gap 8 (5-15); BUN 12 mg/dL (7-18); BUN/Creat Ratio 14.9 RATIO (10-20); Calcium,Total 8.7 mg/dL (8.5-10.1); Chloride 109 mmol/L (98-107); EST Glomerular Filtration Rate 86 mL/min (>60); Est Glom Filt Rate - Afr Amer 104 mL/min (>60); Globulin 3.9 g/dL (2.2-4.2); Glucose 79 mg/dL (74-106); Potassium 3.9 mmol/L (3.5-5.1); Protein, Total 7.4 g/dL (6.4-8.2); Sodium Level 136 mmol/L (136-145)
[2023-02-03 12:49] LABS: Pathologist Review Reviewed
[2023-02-03 14:09] LABS: QNTFERON TB Mitogen Value 4.44 IU/mL (.); QNTFERON TB Nil Value 0.11 IU/mL (.); QNTFERON TB1+ Ag Value 0.12 IU/mL (.); QNTFERON TB2+ Ag Value 0.12 IU/mL (.)
[2023-02-03 18:52] LABS: Complement C3 120 mg/dL (82-167); QNTIFERON TB Positive Criteria Negative (Negative)
[2023-02-03 18:53] LABS: Anti-dsDNA Ab 55 IU/mL (0-9)
== END | disposition home or self-care (01) ==
LOC: MTLAB 16:03
PROVIDERS: PCP Family Medicine; Referring Provider Internal Medicine Rheumatology; Visit Provider Internal Medicine Rheumatology
DX: M32.9 Systemic lupus erythematosus, unspecified (principal); Z79.52 Long term (current) use of systemic steroids
CPT/HCPCS: 36415; 80053; 81002; 82570; 84156; 85025; 86160; 86225; 86480

== ENCOUNTER → 2023-02-15 | Outpatient (CLI) | payer BC, SELFPAY ==
[2023-02-15 18:46] LABS: Protein, Urine (Random) 66.3 mg/dL (<11.9); Protein:Creat Ratio 422 mg/g CRE (0-200)
== END | disposition home or self-care (01) ==
PROVIDERS: PCP Family Medicine; Referring Provider Internal Medicine Nephrology; Visit Provider Internal Medicine Nephrology
DX: M32.14 Glomerular disease in systemic lupus erythematosus (principal); R80.9 Proteinuria, unspecified; F50.9 Eating disorder, unspecified
CPT/HCPCS: 82570; 84156

== ENCOUNTER → 2023-02-23 | Outpatient (CLI) | payer BC, SELFPAY ==
[2023-02-23 10:03] LABS: Absolute Lymphocyte Count 0.57 X10^3/uL (0.83-4.51); Absolute Neutrophil Count 2.1 X10^3/uL (2.0-7.7); Basophil# 0.03 X10^3/uL; Eosinophil# 0.11 X10^3/uL; Eosinophils% 3.5 % (0-5); Hematocrit 33.3 % (37-47); Hemoglobin 10.2 g/dL (12.0-15.0); Immature Platelet Fraction 2.9 % (1.0-7.9); Lymphocyte # 0.57 X10^3/ul (0.83-4.51); Lymphocyte % 18.2 % (19-41); Mean Corp Hgb Conc 30.6 g/dL (32-36); Mean Corpuscular Hgb 25.6 pg (27.0-32.0); Mean Corpuscular Volume 83.7 fL (81-99); Mean Platelet Vol. 10.2 fl (6.2-12.0); Monocyte% 9.6 % (0-10); NRBC Flagged by Analyzer 0 % (0-5); Neutrophil # 2.11 X10^3/uL (2.7-7.7); Neutrophil % 67.1 % (47-70); POSITIVE DIFFERENTIAL YES; Platelet Count 345 K/mm3 (150-450); RBC Distribution Width CV 16.2 % (11.6-14.6); RBC Distribution Width SD 50.1 fl (35.1-43.9); RET-HE 26.9 pg (30-35); Red Blood Count 3.98 M/mm3 (4.2-5.4); Reticulocyte Count 1.41 % (0.5-1.5); White Blood Count 3.1 K/mm3 (4.4-11.0)
[2023-02-23 10:04] LABS: Color, Urine Yellow (Yellow); Glucose, Dipstick Normal (Normal); Ketone-Dipstick Negative (Negative); Leukocyte Esterase-Dipstick 25 /ul (Negative); Nitrite-Dipstick Negative (Negative); Occult Blood-Urine 10 /ul (Negative); Protein-Dipstick 100 mg/dl (Negative); Urine Bilirubin Dipstick Negative (Negative); Urine Clarity Sl. Cloudy (Clear); Urine Urobilinogen Normal (Normal)
[2023-02-23 10:06] LABS: Differential Indicated SCAN CRITERIA MET
[2023-02-23 10:28] LABS: ALB/GLOB Ratio 0.7 RATIO (0.9-2.4); AST(SGOT) 10 U/L (15-37); Alanine Aminotransfer ALT/SGPT 12 U/L (13-56); Albumin, Serum 2.9 g/dL (3.2-5.0); Alkaline Phosphatase 61 U/L (45-117); Anion Gap 6 (5-15); BUN 8 mg/dL (7-18); BUN/Creat Ratio 8.7 RATIO (10-20); Calcium,Total 8.6 mg/dL (8.5-10.1); Chloride 112 mmol/L (98-107); Creatinine, Serum 0.92 mg/dL (0.55-1.02); EST Glomerular Filtration Rate 73 mL/min (>60); Est Glom Filt Rate - Afr Amer 89 mL/min (>60); Ferritin 344 ng/mL (8-252); Globulin 3.9 g/dL (2.2-4.2); Glucose 86 mg/dL (74-106); Iron 79 ug/dL (50-170); Iron Binding Capacity,Total 212 ug/dL (250-450); LDH 181 U/L (84-246); PERCENT IRON SATURATION 37.3 % (15.0-55.0); Potassium 3.4 mmol/L (3.5-5.1); Protein, Total 6.8 g/dL (6.4-8.2); Sodium Level 141 mmol/L (136-145)
[2023-02-23 10:33] LABS: Protein, Urine (Random) 221.3 mg/dL (<11.9); Protein:Creat Ratio 651 mg/g CRE (0-200)
[2023-02-24 05:07] LABS: Complement C3 96 mg/dL (82-167)
[2023-02-24 13:08] LABS: Anti-dsDNA Ab 47 IU/mL (0-9)
[2023-02-25 09:57] LABS: Pathologist Review Reviewed
== END | disposition home or self-care (01) ==
PROVIDERS: PCP Family Medicine; Referring Provider Internal Medicine Rheumatology; Visit Provider Internal Medicine Rheumatology
DX: M32.9 Systemic lupus erythematosus, unspecified (principal); Z79.52 Long term (current) use of systemic steroids; I10 Essential (primary) hypertension
CPT/HCPCS: 36415; 80053; 81002; 82570; 82728; 83540; 83550; 83615; 84156; 85025; 85045; 86160; 86225; 86880

== ENCOUNTER → 2023-03-07 | Outpatient (CLI) | payer BC, SELFPAY | END | disposition home or self-care (01) | PROVIDERS: PCP Family Medicine; Referring Provider Family Medicine; Visit Provider Family Medicine | DX: M32.9 Systemic lupus erythematosus, unspecified (principal); R07.9 Chest pain, unspecified | CPT/HCPCS: 87070; 87205 ==

== ENCOUNTER → 2023-03-09 | Outpatient (CLI) | payer BC, SELFPAY ==
--- NOTE | 2023-03-09 09:18 | ECHOD_ITS ---
Reason For Study: Chest pain, Lupus Procedure This was a 2D Doppler, Color Flow transthoracic echocardiogram. Exam performed in department. Left Ventricle Normal LV size. Left ventricular systolic function is normal. The estimated ejection fraction is 60 %. Stage 1 diastolic dysfunction. No regional wall motion abnormalities noted. Right Ventricle Normal RV size. Normal systolic function. Mitral Valve Normal mitral valve. Mild (1+) eccentric mitral valve insufficiency. Tricuspid Valve Normal tricuspid valve. Mild tricuspid valve insufficiency. Pulmonary artery systolic pressure is 24 mmHg. Aortic Valve Trisinus/trileaflet aortic valve. Normal aortic valve. Trivial eccentric aortic valve insufficiency. Pulmonic Valve Normal pulmonic valve. Great Vessels Normal aortic root. The pulmonary artery is normal size. Normal inferior vena cava. Pericardium/Pleural No pericardial effusion. MMode/2D Measurements & Calculations LVIDd: 4.0 cm IVSd: 0.98 cm Ao root diam: 2.8 cm LVIDs: 2.5 cm LVPWd: 1.1 cm RVDd: 3.2 cm FS: 38.9 % LAV(MOD-bp): 24.7 ml LVAd ap4: 27.1 cm2 LVAd ap2: 25.9 cm2 LAV(MOD-bp) Indexed: 14.7 ml/m2 LVLd ap4: 7.9 cm LVLd ap2: 7.8 cm LAV(MOD-sp2): 26.9 ml EDV(MOD-sp4): 77.1 ml EDV(MOD-sp2): 73.8 ml LAV(MOD-sp4): 22.0 ml EDV(sp4-el): 79.2 ml EDV(sp2-el): 72.8 ml LVAs ap4: 15.8 cm2 LVAs ap2: 13.6 cm2 LVLs ap4: 6.6 cm LVLs ap2: 6.0 cm ESV(MOD-sp4): 32.4 ml ESV(MOD-sp2): 26.7 ml ESV(sp4-el): 32.2 ml ESV(sp2-el): 26.3 ml EF(MOD-sp4): 58.0 % EF(MOD-sp2): 63.8 % EF(sp4-el): 59.4 % SV(MOD-sp4): 44.8 ml SV(MOD-sp2): 47.1 ml SV(sp4-el): 47.0 ml LA dimension(2D): 2.5 cm LA A4 area: 10.5 cm2 RA A4 area: 13.2 cm2 TAPSE: 1.4 cm Time Measurements MV dec time: 0.20 sec Doppler Measurements & Calculations MV E max hosea: 101.1 cm/sec Lat Peak E' Hosea: 13.7 cm/sec Med Peak E' Hosea: 11.9 cm/sec MV A max hosea: 103.2 cm/sec E/E' lat: 7.4 E/E' med: 8.5 MV E/A: 0.98 MV dec slope: 499.2 cm/sec2 Ao V2 max: 159.2 cm/sec LV V1 max: 121.9 cm/sec Ao max P.1 mmHg LV V1 max P.9 mmHg Ao V2 mean: 112.3 cm/sec LV V1 mean P.2 mmHg Ao mean P.8 mmHg LV V1 mean: 83.7 cm/sec Ao V2 VTI: 29.5 cm LV V1 VTI: 21.0 cm AV (velocity ratio): 0.71 PA V2 max: 96.7 cm/sec TR max hosea: 233.6 cm/sec TR max P.8 mmHg ECHO/Echo Complete Interpretation Summary Normal LV size. Left ventricular systolic function is normal. The estimated ejection fraction is 60 %. No regional wall motion abnormalities noted. Stage 1 diastolic dysfunction. Pulmonary artery systolic pressure is 24 mmHg. The global longitudinal strain is normal. The global longitudinal strain = -17. 8 % (normal). Ordering Physician: Laurie Mensah Referring Physician: Laurie Mensah Performed By: Belinda Cardoso RDCS
== END | disposition home or self-care (01) ==
LOC: CVS 09:17
PROVIDERS: PCP Family Medicine; Referring Provider Family Medicine; Visit Provider Family Medicine
DX: M32.9 Systemic lupus erythematosus, unspecified (principal); R20.8 Other disturbances of skin sensation; K14.0 Glossitis; K12.1 Other forms of stomatitis; L01.01 Non-bullous impetigo
CPT/HCPCS: 93306

== ENCOUNTER → 2023-03-23 | Outpatient (CLI) | payer BC, SELFPAY | END | disposition home or self-care (01) | LOC: LABSPEC 10:34 | PROVIDERS: PCP Family Medicine; Referring Provider Dermatology; Visit Provider Dermatology | DX: M32.9 Systemic lupus erythematosus, unspecified (principal); R20.8 Other disturbances of skin sensation; K14.0 Glossitis; K12.1 Other forms of stomatitis | CPT/HCPCS: 87015; 87070; 87075; 87077; 87101; 87116; 87176; 87186; 87205; 87206 ==

== ENCOUNTER → 2023-04-25 | Outpatient (CLI) | payer BC, SELFPAY ==
[2023-05-05 13:08] LABS: HSV Culture Without Typing Positive (.)
== END | disposition home or self-care (01) ==
PROVIDERS: PCP Family Medicine; Referring Provider Dermatology; Visit Provider Dermatology
DX: B00.1 Herpesviral vesicular dermatitis (principal)
CPT/HCPCS: 87070; 87077; 87186; 87205; 87255

== ENCOUNTER → 2023-05-31 | Outpatient (CLI) | payer BC, SELFPAY ==
[2023-05-31 18:00] LABS: Absolute Lymphocyte Count 0.47 X10^3/uL (0.83-4.51); Absolute Neutrophil Count 3.9 X10^3/uL (2.0-7.7); Basophil# 0.02 X10^3/uL; Basophil% 0.4 % (0-1); Eosinophil# 0.02 X10^3/uL; Eosinophils% 0.4 % (0-5); Hematocrit 36.2 % (37-47); Hemoglobin 10.8 g/dL (12.0-15.0); Lymphocyte # 0.47 X10^3/ul (0.83-4.51); Lymphocyte % 9.4 % (19-41); Mean Corp Hgb Conc 29.8 g/dL (32-36); Mean Corpuscular Hgb 26.3 pg (27.0-32.0); Mean Corpuscular Volume 88.1 fL (81-99); Mean Platelet Vol. 10.6 fl (6.2-12.0); NRBC Flagged by Analyzer 0 % (0-5); Neutrophil # 3.85 X10^3/uL (2.7-7.7); POSITIVE DIFFERENTIAL YES; Platelet Count 449 K/mm3 (150-450); RBC Distribution Width CV 16.1 % (11.6-14.6); RBC Distribution Width SD 52.5 fl (35.1-43.9); Red Blood Count 4.11 M/mm3 (4.2-5.4)
[2023-05-31 18:06] LABS: Differential Indicated SCAN CRITERIA MET
[2023-05-31 18:09] LABS: Color, Urine Yellow (Yellow); Glucose, Dipstick Normal (Normal); Ketone-Dipstick 50 mg/dl (Negative); Leukocyte Esterase-Dipstick 100 /ul (Negative); Nitrite-Dipstick Positive (Negative); Occult Blood-Urine 10 /ul (Negative); Protein-Dipstick 100 mg/dl (Negative); Urine Bilirubin Dipstick Negative (Negative); Urine Clarity Sl. Cloudy (Clear); Urine Urobilinogen Normal (Normal)
[2023-05-31 18:33] LABS: ALB/GLOB Ratio 0.7 RATIO (0.9-2.4); AST(SGOT) 9 U/L (15-37); Alanine Aminotransfer ALT/SGPT 12 U/L (13-56); Alkaline Phosphatase 68 U/L (45-117); Anion Gap 9 (5-15); BUN 10 mg/dL (7-18); BUN/Creat Ratio 12.6 RATIO (10-20); Calcium,Total 8.5 mg/dL (8.5-10.1); Chloride 107 mmol/L (98-107); Creatinine, Serum 0.79 mg/dL (0.55-1.02); EST Glomerular Filtration Rate 87 mL/min (>60); Est Glom Filt Rate - Afr Amer 105 mL/min (>60); Globulin 4.2 g/dL (2.2-4.2); Glucose 77 mg/dL (74-106); Potassium 3.4 mmol/L (3.5-5.1); Protein, Total 7.2 g/dL (6.4-8.2); Sodium Level 137 mmol/L (136-145)
[2023-05-31 18:36] LABS: Differential Comment SCANNED
[2023-05-31 18:37] LABS: Protein:Creat Ratio 462 mg/g CRE (0-200)
[2023-06-02 05:07] LABS: Complement C3 135 mg/dL (82-167)
[2023-06-02 15:08] LABS: Anti-dsDNA Ab 44 IU/mL (0-9)
== END | disposition home or self-care (01) ==
PROVIDERS: PCP Family Medicine; Referring Provider Internal Medicine Rheumatology; Visit Provider Internal Medicine Rheumatology
DX: M32.9 Systemic lupus erythematosus, unspecified (principal); I10 Essential (primary) hypertension; Z79.52 Long term (current) use of systemic steroids
CPT/HCPCS: 36415; 80053; 81002; 82570; 84156; 85025; 86160; 86225

== ENCOUNTER → 2023-06-22 | Outpatient (CLI) | payer BC, SELFPAY ==
[2023-06-22 10:25] LABS: Hematocrit 40.1 % (37-47); Hemoglobin 11.7 g/dL (12.0-15.0); Mean Corp Hgb Conc 29.2 g/dL (32-36); Mean Corpuscular Hgb 26.2 pg (27.0-32.0); Mean Corpuscular Volume 89.7 fL (81-99); Mean Platelet Vol. 11.1 fl (6.2-12.0); Platelet Count 314 K/mm3 (150-450); RBC Distribution Width SD 52.6 fl (35.1-43.9); Red Blood Count 4.47 M/mm3 (4.2-5.4); White Blood Count 3.4 K/mm3 (4.4-11.0)
[2023-06-22 11:02] LABS: Albumin, Serum 2.9 g/dL (3.2-5.0); BUN 11 mg/dL (7-18); BUN/Creat Ratio 13.8 RATIO (10-20); Calcium,Total 8.3 mg/dL (8.5-10.1); Chloride 112 mmol/L (98-107); EST Glomerular Filtration Rate 86 mL/min (>60); Est Glom Filt Rate - Afr Amer 105 mL/min (>60); Ferritin 254 ng/mL (8-252); Glucose 82 mg/dL (74-106); Phosphorus 2.8 mg/dL (2.5-4.9); Potassium 3.7 mmol/L (3.5-5.1); Sodium Level 141 mmol/L (136-145)
[2023-06-22 11:15] LABS: Microalbumin:Creatinine Ratio 183.1 mg/g CRE (<30 mg/g CRE)
[2023-06-22 12:48] LABS: Protein, Urine (Random) 83.3 mg/dL (<11.9)
== END | disposition home or self-care (01) ==
PROVIDERS: PCP Family Medicine; Referring Provider Internal Medicine Nephrology; Visit Provider Internal Medicine Nephrology
DX: D50.9 Iron deficiency anemia, unspecified (principal); M32.14 Glomerular disease in systemic lupus erythematosus; R80.9 Proteinuria, unspecified
CPT/HCPCS: 36415; 80069; 82043; 82570; 82728; 84156; 85027

== ENCOUNTER → 2023-07-14 | Outpatient (CLI) | payer BC, SELFPAY ==
--- NOTE | 2023-07-14 16:20 | RAD_ITS ---
EXAM: XR MANDIBLE LIMITED, 1, 2 OR 3 VIEWS CLINICAL INDICATION: INFECTED WOUND JAW TECHNIQUE: Frontal and/or lateral views of the mandible. COMPARISON: No relevant prior studies available. FINDINGS: DENTAL: No acute findings. BONES/JOINTS: No acute abnormality. SOFT TISSUES: Normal. No soft tissue swelling or gas. No radiopaque foreign body. RAD/Mandible Less Than 4 Views IMPRESSION: Normal mandible x-rays. Electronically Signed: Darshan Mcmahon MD at 11:56 EDT ,
== END | disposition home or self-care (01) ==
LOC: LAB 15:53
PROVIDERS: PCP Family Medicine; Referring Provider Internal Medicine Infectious Disease; Visit Provider Internal Medicine Infectious Disease
DX: T14.8XXA Other injury of unspecified body region, initial encounter (principal)
CPT/HCPCS: 70100

== ENCOUNTER → 2023-07-15 | Outpatient (CLI) | payer BC, SELFPAY | END | disposition home or self-care (01) | LOC: BFHLAB 13:14 → LABSPEC 13:14 | PROVIDERS: PCP Family Medicine; Referring Provider Family Medicine; Visit Provider Family Medicine | DX: B00.89 Other herpesviral infection (principal) | CPT/HCPCS: 87255 ==

== ENCOUNTER 2023-07-20 07:49 | Outpatient (RCR) | payer BC, SELFPAY ==
[2023-07-20 08:06] VITALS: BP 115/82; PULSE 73; RESP 16; TEMP 36.5; BMI 19.2
[2023-07-20 09:49] LABS: Absolute Lymphocyte Count 0.57 X10^3/uL (0.83-4.51); Absolute Neutrophil Count 2.8 X10^3/uL (2.0-7.7); Basophil# 0.04 X10^3/uL; Eosinophil# 0.04 X10^3/uL; Hematocrit 40.5 % (37-47); Hemoglobin 12.5 g/dL (12.0-15.0); Lymphocyte # 0.57 X10^3/ul (0.83-4.51); Lymphocyte % 14.3 % (19-41); Mean Corp Hgb Conc 30.9 g/dL (32-36); Mean Corpuscular Hgb 26.9 pg (27.0-32.0); Mean Corpuscular Volume 87.3 fL (81-99); Mean Platelet Vol. 9.8 fl (6.2-12.0); Monocyte# 0.52 X10^3/uL; NRBC Flagged by Analyzer 0 % (0-5); Neutrophil # 2.79 X10^3/uL (2.7-7.7); Neutrophil % 69.7 % (47-70); POSITIVE DIFFERENTIAL YES; Platelet Count 283 K/mm3 (150-450); RBC Distribution Width CV 15.2 % (11.6-14.6); RBC Distribution Width SD 46.9 fl (35.1-43.9); Red Blood Count 4.64 M/mm3 (4.2-5.4)
[2023-07-20 09:56] LABS: Differential Indicated SCAN CRITERIA MET
[2023-07-20 11:07] LABS: Differential Comment SCANNED
--- NOTE | 2023-07-20 12:32 | HP.PCM_ITS ---
History of Present Illness Date of Service: 07/20/23 Chief Complaint: Follow-up on a chin wound History of Wound: 38-year-old black female who in January developed a pimple on her chin that opened up into a wound. 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 He started on acyclovir but it did not help. Her family doctor then proceeded to start her on doxycycline for an infection without cultures. The family doctor also had her on topical antibiotic ointment and steroid cream. Dermatology told her to stop all that. She is distraught because the area is bigger very painful open now it bled over the weekend and has a thick black scab over top. [facility] Medical History Discoloration of skin History of steroid therapy HTN (hypertension) Hypertrophic scar of skin Lupus ON (optic neuritis) Ptosis of both breasts Recent weight loss Skin laxity Skin striae SLE (systemic lupus erythematosus) Home Medications hydroxychloroquine 200 mg tablet 200 mg PO BIDCM 11/04/14 [History Last Taken 06/28/17] lisinopril 2.5 mg tablet 2.5 mg PO QDAY 04/18/18 [History Last Taken Unknown] mycophenolate mofetil 250 mg capsule (CellCept) 500 mg PO BID lupus 04/18/18 [History Last Taken Unknown] levonorgestrel 21 mcg/24 hours (8 yrs) 52 mg intrauterine device (Mirena) 1 insert intrauterine ONCE 05/29/18 [History Last Taken Unknown] belimumab 200 mg/mL subcutaneous auto-injector (Benlysta) 200 mg subcut QWEEK 02/24/22 [History Last Taken Unknown] levofloxacin 500 mg tablet 500 mg PO DAILY 07/20/23 [History Last Taken Unknown] linezolid 600 mg tablet 600 mg PO BID 07/20/23 [History Last Taken Unknown] metronidazole 500 mg tablet 500 mg PO TID 07/20/23 [History Last Taken Unknown] Allergy/AdvReac Type Severity Reaction Status Date / Time No Known Allergies Allergy Verified 07/20/23 08:20 Family History Mother Diabetes Father Hypertension Other Thyroid disorder Surgical History History of mastopexy Social History Smoking Status: Never smoker alcohol intake: current alcohol intake frequency: holidays/special occasions only substance use type: does not use caffeine: Yes (rarely) what type of physical activity do you participate in: walking frequency: 1-2 times per week seatbelt use: always do you feel safe at home: Yes 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 [employer] Constitutional Constitutional: Reports systems reviewed and no addt'l complaints, except as documented Eyes Eyes: Reports systems reviewed and no addt'l complaints, except as documented ENT HEENT: Reports systems reviewed and no addt'l complaints, except as documented Cardiovascular Cardiovascular: Reports systems reviewed and no addt'l complaints, except as doc umented Respiratory/Chest Respiratory/Chest: Reports systems reviewed and no addt'l complaints, except as documented Gastrointestinal Gastrointestinal: Reports systems reviewed and no addt'l complaints, except as documented Genitourinary Genitourinary: Reports systems reviewed and no addt'l complaints, except as documented Musculoskeletal Musculoskeletal: Reports systems reviewed and no addt'l complaints, except as documented Integumentary Integumentary: Reports non-healing lesions, wounds and other Details: Open wound chin very friable Neurologic Neurologic: Reports systems reviewed and no addt'l complaints, except as documented Psychiatric Psychiatric: Reports systems reviewed and no addt'l complaints, except as documented Endocrine Endocrinology: Reports systems reviewed and no addt'l complaints, except as documented Hematologic/Lymphatic Hematologic/Lymphatic: Reports systems reviewed and no addt'l complaints, except as documented Allergic/Immunologic Allergic/Immunologic: Reports systems reviewed and no addt'l complaints, except as documented Vital Signs Vital Signs Vital Signs: 07/20/23 08:06 Temperature 97.7 F L Temperature Source Temporal Pulse Rate 73 Respiratory Rate 16 Blood Pressure 115/82 H Blood Pressure Mean 93 Blood Pressure Source Monitor Blood Pressure Position Sitting Blood Pressure Location Right Arm Oxygen Delivery Method Room Air Weight Weight: 119 lb Body Mass Index (BMI) 19.2 Physical Exam Const oriented x3 General Appearance: cooperative Exam Limitations: no limitations HEENT normocephalic Head and Scalp: normal to inspection Face and Sinus: normal facial exam Nose: external nose normal Mouth: oral and palatal mucosa normal Eyes PERRL General Eye: normal appearance of both eyes Neck General: normal visual inspection Resp normal respiratory effort Effort and Inspection: able to speak in complete sentences Cardio regular rate and regular rhythm GI Palpation: soft and no hepatosplenomegaly Extremity normal to inspection General Extremity: normal exam except as noted Skin Skin Narrative: Open flat wound chin very friable. No sign of infection noted Neuro oriented x3 Psych Appearance: grossly normal Speech: normal speech Thought Content: normal thought content Judgement: judgement good Debridement Note Debridement Note Wound debrided: Chin wound nonpressure Type of Debridement: Excisional debridement Anesthesia Used: 5% Lidocaine Gel Depth: Down to and including healthy tissue and in the subcutaneous layer Percentage of wound debrided: 100 Instrument Used: 3mm curette Severity: Limited To Skin Breakdown Amount of bleeding with debridement: Moderate Bleeding Controlled with: Compression and gauze and Gel Foam Patient tolerated procedure: Patient tolerated procedure well Post-Debridement Measurements and Additional Note: Post-Debridement Measurements/Treatment - Nurse 1 - General Ulcer Assessment Start: 07/20/23 08:05 Freq: Status: Active Protocol: [employer] Activity Type Activity Date Activity User E-sign Co-sign Detail Recorded Client Recorded Date Recorded By Document 07/20/23 08:06 [facility] Desktop 07/20/23 08:20 [facility] 07/20/23 08:06 - Today's Visit Information Type of service Initial Visit Arrival Mode Ambulatory Transfer Assistance None Patient Identification Verified (Name & Yes ) Patient Requires Transmission-Based No Precautions Height and Weight Height 5 ft 6 in Weight 119 lb Weight in Pounds 119.0 lbs Body Mass Index (BMI) 19.2 BMI Classification Normal BSA - Dean 1.60 Vital Signs Temperature (97.8 F-99.1 F) 97.7 F L Temperature Source Temporal Pulse Rate (60-100) 73 Pulse Location Monitor Respiratory Rate (12-18) 16 Respiratory rate source Observation Oxygen Delivery Method Room Air Blood Pressure (90/60-120/80) 115/82 H Blood Pressure Mean 93 Source Monitor Position Sitting Blood Pressure Location Right Arm History Since Last Visit- (Skip if this is Patient's initial visit) Left Footwear Regular Shoe Right Footwear Regular Shoe Pain Scale: 0-10 Numeric Is Patient Pain Free? Yes Communication Assessment Preferred language [place] Belt Turner Required No Able to Read Yes Able to Write Yes Communication Tools None Right Hearing Abillity Normal Left Hearing Abillity Normal Visual Assistive Devices None Teaching Assessment Preferences Verbal,Written, Audio/Visual, Demonstration Barriers to Learning None Readiness To Learn Excellent Willingness to Engage in Self Management High Activies Readiness to Engage in Self Management High Activities Anxiety Level Calm Cooperation Cooperative Perception Coherent Interest in Health Problem Asks Questions Does Patient Smoke tobacco or other No substances Smoking Status Never smoker Is Patient Diabetic No Functional Assessment Recent Decline in Ability to Perform Denies Any Declines 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 Needs that may affect No Treatment Plan Teaching: Wound Center *Welcome to the Wound Center -Person Taught Patient,Family -Teaching Method Discussion -Response to teaching Verbalize understanding Welcome to the Wound Care Center [place] KRYSTINA - Nurse 1 - General Ulcer Measurement Start: 07/20/23 08:05 Freq: Status: Active Protocol: Activity Type Activity Date Activity User E-sign Co-sign Detail Recorded Client Recorded Date Recorded By Document 07/20/23 08:06 [facility] Desktop 07/20/23 08:20 [facility] 07/20/23 08:06 Wound Center Nurse 1 #1- chin -Combined with other wound No -Current Size (cm) - Length 2.5 -Current Size (cm) - Width 2.3 -Current Size (cm) - Depth 0.1 -Total Square Cm 5.75 -Date of Last Picture (Recall this 07/20/23 field) -Photo Taken Yes -Epithelialization None Present -Tunneling No -Undermining/Tunneling No -Circular Undermining No -Exudate Amt Medium -Exudate Type Sanguineous -Wound Margin Distinct, Outline Attached -Granulation Amt None Present (0 %) -Slough/Fibrin Yes -Necrosis Amt Large (67-100%) -Necrotic Tissue Type Eschar -Texture (Ashlee-wound Skin Appearance) Assessed, Scarring -Moisture (Ashlee-wound Skin Appearance) Assessed -Color (Ashlee-wound Skin Appearance) Assessed -Temperature (Ashlee-wound Skin No Abnormality Appearance) (Pt Warm) -Tenderness on Palpation (Ashlee-wound No Skin Appearance) -Ulcer Cleansing Rinsed/ Irrigated with Saline -Foul Odor after Cleansing No -Anesthetic Used 5% Lidocaine Gel KRYSTINA - Nurse 2 - General Ulcer CM Notes Start: 07/20/23 08:05 Freq: Status: Active Protocol: Activity Type Activity Date Activity User E-sign Co-sign Detail Recorded Client Recorded Date Recorded By Document 07/20/23 08:33 [facility] Desktop 07/20/23 08:52 MW 07/20/23 08:33 Wound Center Nurse 2 -Time 08:34 -Correct Patient Yes -Correct Side, Site, Position Yes -Correct Procedure Yes -Procedure Performed Yes -Type of Procedure Debridement -Clinical Debridement Subcutaneous -Tissue Removed Subcutaneous -Post Debridement (cm) - Length 2.0 -Post Debridement (cm) - Width 2.0 -Post Debridement (cm) - Depth 0.1 -Total Square (Post) (cm) 4.00 -Area of Debridement (cm) - Length 2.0 -Area of Debridement (cm) - Width 2.0 -Total Square (Area) (cm) 4.00 -Tunneling No -Undermining/Tunneling No -Circular Undermining No -Wound/Ulcer Outcome Not Healed -Ulcer Cleansing Rinsed/ Irrigated with Saline -Foul Odor after Cleansing No -Bioengineered Tissue No -Bleeding Controlled with Pressure -Treatment Response Procedure Tolerated Well -Offloading No -Debridement - Subq, 1st 20sq cm Yes Pain Scale: 0-10 Numeric Is Patient Pain Free? Yes Lab / Micro Data 07/20/23 09:23 Labs: Laboratory Results - last 24 hr 07/20/23 09:23: WBC 4.0 L, RBC 4.64, Hgb 12.5, Hct 40.5, MCV 87.3, MCH 26.9 L, MCHC 30.9 L, RDW Std Deviation 46.9 H, RDW Coeff of Coleman 15.2 H, Plt Count 283, MPV 9.8, Immature Gran % (Auto) 1.000 H, Neut % (Auto) 69.7, Lymph % (Auto) 14.3 L, [place] % (Auto) 13.0 H, Eos % (Auto) 1.0, Baso % (Auto) 1.0, Absolute Neuts (auto) 2.8, Absolute Lymphs (auto) 0.57 L, Nucleated RBC % 0, Differential Comment SCANNED, Diff Path Review February Assessment/Plan Assessment/Plan (1) Nonhealing nonsurgical wound: CODE(S): T14.8XXA - Other injury of unspecified body region, initial encounter PLAN: Wash area with antibacterial soap and water pat dry apply Fibracol to wound base moistened and cover with gauze dressing and absorbent dressing over top. Every day. Cultures obtained of wound. Will obtain biopsy results from Dr. Marcelo's office CATHY Sent patient over for HSV blood test. We will call patient as information comes in Otherwise follow-up in 1 week (2) Open wound of chin: CODE(S): S01.80XA - Unspecified open wound of other part of head, initial encounter QUALIFIERS: Encounter type: initial encounter Qualified Code(s): S01.80XA - Unspecified open wound of other part of head, initial encounter
[2023-07-21 06:09] LABS: HSV 1 IgG < 0.91 index (0.00-0.90)
[2023-07-21 11:09] LABS: Pathologist Review Reviewed
== END 2023-07-23 23:59 | disposition home or self-care (01) ==
LOC: WC 07:49
PROVIDERS: PCP Family Medicine; Referring Provider Internal Medicine Infectious Disease; Visit Provider Nurse Practitioner
DX: T81.89XA Other complications of procedures, not elsewhere classified, initial encounter (principal); I10 Essential (primary) hypertension; S01.80XA Unspecified open wound of other part of head, initial encounter
CPT/HCPCS: 11042; 36415; 85025; 86695; 86696; 87070; 87075; 87077; 87205; 99203; G0463

== ENCOUNTER 2023-08-03 08:15 | Outpatient (RCR) | payer BC, SELFPAY ==
[2023-07-24 00:48] VITALS: BP 115/82; PULSE 73; RESP 16; TEMP 36.5; BMI 19.2
[2023-07-27 08:03] VITALS: BP 125/92; PULSE 76; TEMP 36.1; BMI 19.2
--- NOTE | 2023-07-27 10:04 | PN.PCM_ITS ---
History of Present Illness Date of Service: 07/27/23 Chief Complaint: Follow-up on a chin wound History of Wound: 38-year-old black female who in January developed a pimple on her chin that opened up into a wound. 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 He started on acyclovir but it did not help. Her family doctor then proceeded to start her on doxycycline for an infection without cultures. The family doctor also had her on topical antibiotic ointment and steroid cream. Dermatology told her to stop all that. She is distraught because the area is bigger very painful open now it bled over the weekend and has a thick black scab over top. Progress of Wound: Amazingly all labs were negative no sign of infection on the culture and it only showed that she had cold sores on her lab work. We will really admit the valacyclovir for a week and then put her on suppressive therapy for 1 year. In the meantime we will try Fibracol to the bleeding area on her bottom lip. Last week was able to remove the blood clot but it bled so badly I had to use surgical Gelfoam to stop the bleed Subjective Subjective Patient is very pleased this week it is almost healed looks better stopped bleeding on Tuesday she states and has been doing the dressings daily. Objective Data Objective Data The wound is down to a small V shaped less than 0.5 area. No depth. We will change to Promogran to finish the wound closing. Told her the coloring will come back to her skin and that she will start again on valacyclovir and then will put her on suppressive therapy for a year. Vital Signs: Vital Signs Temp Pulse Resp BP O2 Del Method 96.9 F L 76 16 125/92 H Room Air 07/27/23 08:03 07/27/23 08:03 07/24/23 00:48 07/27/23 08:03 07/27/23 08:03 Oxygen Delivery Method Room Air Weight: 119 lb Body Mass Index (BMI) 19.2 Lab / Micro Data Attestation: I reviewed the patient's lab results. Physical Exam Const oriented x3 General Appearance: cooperative Exam Limitations: no limitations HEENT normocephalic Head and Scalp: normal to inspection Face and Sinus: normal facial exam Nose: external nose normal Mouth: oral and palatal mucosa normal Eyes PERRL General Eye: normal appearance of both eyes Neck General: normal visual inspection Resp normal respiratory effort Effort and Inspection: able to speak in complete sentences Cardio regular rate and regular rhythm GI Palpation: soft and no hepatosplenomegaly Extremity normal to inspection General Extremity: normal exam except as noted Skin Skin Narrative: Open flat wound chin very friable. No sign of infection noted Neuro oriented x3 Psych Appearance: grossly normal Speech: normal speech Thought Content: normal thought content Judgement: judgement good Debridement Note Debridement Note Wound debrided: Bottom lip herpes wound Type of Debridement: Excisional debridement Anesthesia Used: 5% Lidocaine Gel Depth: Down to and including healthy tissue Percentage of wound debrided: 100 Instrument Used: 3mm curette Tissue Removed: Fibrin Severity: Limited To Skin Breakdown Amount of bleeding with debridement: None Bleeding Controlled with: Pressure Patient tolerated procedure: Patient tolerated procedure well Post-Debridement Measurements and Additional Note: Post-Debridement Measurements/Treatment - Nurse 1 - General Ulcer Assessment Start: 07/27/23 08:02 Freq: Status: Active Protocol: SANDRITA Activity Type Activity Date Activity User E-sign Co-sign Detail Recorded Client Recorded Date Recorded By Document 07/27/23 08:03 Desktop 07/27/23 08:07 07/27/23 08:03 - Today's Visit Information Type of service Follow-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 Any new allergies or adverse reactions No Had a fall/change in ADL's that may No increase risk of falls Signs or symptoms of abuse and/or No neglect since last visit Have you been in the hospital since your No last visit? Has dressing in place as prescribed Yes Has compression in place as prescribed N/A Has offloadiing in place as prescribed N/A Experienced any changes in pain level or No management Pain Scale: 0-10 Numeric Is Patient Pain Free? Yes WC - Nurse 1 - General Ulcer Measurement Start: 07/27/23 08:02 Freq: Status: Active Protocol: Activity Type Activity Date Activity User E-sign Co-sign Detail Recorded Client Recorded Date Recorded By Document 07/27/23 08:03 [facility] Desktop 07/27/23 08:07 GM 07/27/23 08:03 Wound Center Nurse 1 #1- chin -Current Size (cm) - Length 0.1 -Current Size (cm) - Width 0.1 -Current Size (cm) - Depth 0.1 -Total Square Cm 0.01 -Date of Last Picture (Recall this 07/27/23 field) -Photo Taken Yes -Epithelialization Large 67-100% -Tunneling No -Undermining/Tunneling No -Circular Undermining No -Exudate Amt None Present -Wound Margin Flat & Intact -Granulation Amt None Present (0 %) -Slough/Fibrin Yes -Necrosis Amt Large (67-100%) -Structure Exposed N/A -Texture (Ashlee-wound Skin Appearance) Scarring -Moisture (Ashlee-wound Skin Appearance) Dry/Scaly -Temperature (Ashlee-wound Skin No Abnormality Appearance) (Pt Warm) -Tenderness on Palpation (Ashlee-wound No Skin Appearance) -Ulcer Cleansing Rinsed/ Irrigated with Saline -Foul Odor after Cleansing No -Anesthetic Used 5% Lidocaine Gel KRYSTINA - Nurse 2 - General Ulcer CM Notes Start: 07/27/23 08:02 Freq: Status: Active Protocol: Activity Type Activity Date Activity User E-sign Co-sign Detail Recorded Client Recorded Date Recorded By Document 07/27/23 08:20 MW Desktop 07/27/23 08:26 MW 07/27/23 08:20 Wound Center Nurse 2 -Time 08:21 -Correct Patient Yes -Correct Side, Site, Position Yes -Correct Procedure Yes -Procedure Performed Yes -Type of Procedure Debridement -Clinical Debridement Subcutaneous -Tissue Removed Subcutaneous -Post Debridement (cm) - Length 0.5 -Post Debridement (cm) - Width 0.7 -Post Debridement (cm) - Depth 0.1 -Total Square (Post) (cm) 0.35 -Area of Debridement (cm) - Length 0.5 -Area of Debridement (cm) - Width 0.7 -Total Square (Area) (cm) 0.35 -Tunneling No -Undermining/Tunneling No -Circular Undermining No -Wound/Ulcer Outcome Not Healed -Ulcer Cleansing Rinsed/ Irrigated with Saline -Foul Odor after Cleansing No -Bioengineered Tissue No -Bleeding Controlled with Pressure -Treatment Response Procedure Tolerated Well -Offloading No -Debridement - Subq, 1st 20sq cm Yes Pain Scale: 0-10 Numeric Is Patient Pain Free? Yes - Nurse 3 - General Ulcer D/C NN Start: 07/27/23 08:02 Freq: Status: Active Protocol: Activity Type Activity Date Activity User E-sign Co-sign Detail Recorded Client Recorded Date Recorded By Document 07/27/23 08:35 [facility] Desktop 07/27/23 08:35 [facility] 07/27/23 08:35 Wound Care Center Nurse 3 #1- chin -Ulcer Cleansing Rinsed/ Irrigated with Saline -Foul Odor after Cleansing No -Primary Dressing Applied Promogran -Primary Dressing Covered/Secured with Dry Gauze, Secured with Tape -Promogran 1 Treatment Response Procedure Tolerated Well Pain Scale: 0-10 Numeric Is Patient Pain Free? Yes - Visit Discharge Discharge Condition Stable Ambulatory Status Ambulatory Transportation Private Auto Assessment/Plan Assessment/Plan (1) Nonhealing nonsurgical wound: CODE(S): T14.8XXA - Other injury of unspecified body region, initial encou nter PLAN: Wash area with antibacterial soap and water pat dry apply Fibracol to wound base moistened and cover with gauze dressing and absorbent dressing over top. Every day. Apply Promogran to wound base cover with this very small dressing and tape daily Follow-up in 1 week 6 continue the valacyclovir 1000 mg 3 times daily for 7 days and then suppressive therapy of 1000 mg daily for 1 year (2) Open wound of chin: CODE(S): S01.80XA - Unspecified open wound of other part of head, initial encounter QUALIFIERS: Encounter type: initial encounter Qualified Code(s): S01.80XA - Unspecified open wound of other part of head, initial encounter (3) Herpes simplex type 2 infection: CODE(S): B00.9 - Herpesviral infection, unspecified
[2023-08-03 08:02] VITALS: BP 127/87; PULSE 80; TEMP 36.3; BMI 19.2
--- NOTE | 2023-08-03 08:55 | PN.PCM_ITS ---
History of Present Illness Date of Service: 08/03/23 Chief Complaint: Follow-up on a chin wound History of Wound: 38-year-old black female who in January developed a pimple on her chin that opened up into a wound. 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 He started on acyclovir but it did not help. Her family doctor then proceeded to start her on doxycycline for an infection without cultures. The family doctor also had her on topical antibiotic ointment and steroid cream. Dermatology told her to stop all that. She is distraught because the area is bigger very painful open now it bled over the weekend and has a thick black scab over top. Progress of Wound: Amazingly all labs were negative no sign of infection on the culture and it only showed that she had cold sores on her lab work. We will really admit the valacyclovir for a week and then put her on suppressive therapy for 1 year. In the meantime we will try Fibracol to the bleeding area on her bottom lip. Last week was able to remove the blood clot but it bled so badly I had to use surgical Gelfoam to stop the bleed Stover wound is now healed patient did grow an anaerobe and we will start her on Augmentin twice a day for 10 days otherwise we will discharge her from the wound center all her wounds are closed Subjective Subjective Patient is very happy with outcomes Objective Data Objective Data Follow-up as needed patient will be discharged from the wound center. Patient will be given Augmentin twice a day for 10 days Vital Signs: Vital Signs Temp Pulse Resp BP O2 Del Method 97.3 F L 80 16 127/87 H Room Air 08/03/23 08:02 08/03/23 08:02 07/24/23 00:48 08/03/23 08:02 08/03/23 08:02 Oxygen Delivery Method Room Air Weight: 119 lb Body Mass Index (BMI) 19.2 Lab / Micro Data Attestation: I reviewed the patient's lab results. Debridement Note Debridement Note No debridement was completed: No debridement was completed today Post-Debridement Measurements and Additional Note: Post-Debridement Measurements/Treatment KRYSTINA - Nurse 1 - General Ulcer Assessment Start: 07/27/23 08:02 Freq: Status: Active Protocol: SANDRITA Activity Type Activity Date Activity User E-sign Co-sign Detail Recorded Client Recorded Date Recorded By Document 07/27/23 08:03 GM Desktop 07/27/23 08:07 GM Document 08/03/23 08:02 GM Tablet 08/03/23 08:07 GM 07/27/23 08/03/23 08:03 08:02 WC - Today's Visit Information Type of service Follow-up Visit Follow-up Visit (Physician/PAID INTERN (Physician/PAID INTERN ) ) Arrival Mode Ambulatory Ambulatory Transfer Assistance None Patient Identification Verified (Name & Yes ) Patient Requires Transmission-Based No No Precautions Safety Precautions NA NA Height and Weight Body Mass Index (BMI) 19.2 19.2 BMI Classification Normal Normal Vital Signs Temperature (97.8 F-99.1 F) 96.9 F L 97.3 F L Temperature Source Temporal Temporal Pulse Rate (60-100) 76 80 Pulse Location Monitor Monitor Oxygen Delivery Method Room Air Room Air Blood Pressure (90/60-120/80) 125/92 H 127/87 H Blood Pressure Mean (mm Hg) 103 100 Source Monitor Monitor Position Sitting Sitting Blood Pressure Location Left Arm Left Arm History Since Last Visit- (Skip if this is Patient's initial visit) Have you changed medications since your Yes No last visit? Any new allergies or adverse reactions No No Had a fall/change in ADL's that may No No increase risk of falls Signs or symptoms of abuse and/or No No neglect since last visit Have you been in the hospital since your No No last visit? Has dressing in place as prescribed Yes No Has compression in place as prescribed N/A N/A Has offloadiing in place as prescribed N/A N/A Experienced any changes in pain level or No No management Pain Scale: 0-10 Numeric Is Patient Pain Free? Yes Yes WC - Nurse 1 - General Ulcer Measurement Start: 07/27/23 08:02 Freq: Status: Active Protocol: Activity Type Activity Date Activity User E-sign Co-sign Detail Recorded Client Recorded Date Recorded By Document 07/27/23 08:03 GM Desktop 07/27/23 08:07 GM Document 08/03/23 08:02 GM Tablet 08/03/23 08:07 GM Edit Result 08/03/23 08:02 GM (1) Tablet 08/03/23 08:10 GM (1) #1- chin - Current Size (cm) - Length => 0.1 - Current Size (cm) - Width => 0.1 - Current Size (cm) - Depth => 0.1 - Total Square Cm => 0.01 - Tunneling Position (O'clock) 0 => - Tunneling Distance (cm) 0 => - Tunneling Position #2 (O'clock) 0 => 07/27/23 08/03/23 08:03 08:02 Wound Center Nurse 1 #1- chin -Combined with other wound No -Current Size (cm) - Length 0.1 0.1 -Current Size (cm) - Width 0.1 0.1 -Current Size (cm) - Depth 0.1 0.1 -Total Square Cm 0.01 0.01 -Date of Last Picture (Recall this 07/27/23 field) -Photo Taken Yes Yes -Epithelialization Large 67-100% -Tunneling No -Undermining/Tunneling No -Circular Undermining No -Exudate Amt None Present -Wound Margin Flat & Intact -Granulation Amt None Present (0 %) -Slough/Fibrin Yes -Necrosis Amt Large (67-100%) -Structure Exposed N/A -Texture (Ashlee-wound Skin Appearance) Scarring -Moisture (Ashlee-wound Skin Appearance) Dry/Scaly -Temperature (Ashlee-wound Skin No Abnormality Appearance) (Pt Warm) -Tenderness on Palpation (Ashlee-wound No Skin Appearance) -Ulcer Cleansing Rinsed/ Irrigated with Saline -Foul Odor after Cleansing No -Anesthetic Used 5% Lidocaine Gel WC - Nurse 2 - General Ulcer CM Notes Start: 07/27/23 08:02 Freq: Status: Active Protocol: Activity Type Activity Date Activity User E-sign Co-sign Detail Recorded Client Recorded Date Recorded By Document 07/27/23 08:20 MW Desktop 07/27/23 08:26 MW Document 08/03/23 08:17 MW Desktop 08/03/23 08:18 MW 07/27/23 08/03/23 08:20 08:17 Wound Center Nurse 2 #1- chin -Time 08:21 08:18 -Correct Patient Yes Yes -Correct Side, Site, Position Yes Yes -Correct Procedure Yes Yes -Procedure Performed Yes No -Type of Procedure Debridement -Clinical Debridement Subcutaneous -Tissue Removed Subcutaneous -Post Debridement (cm) - Length 0.5 0 -Post Debridement (cm) - Width 0.7 0 -Post Debridement (cm) - Depth 0.1 0 -Total Square (Post) (cm) 0.35 0 -Area of Debridement (cm) - Length 0.5 -Area of Debridement (cm) - Width 0.7 -Total Square (Area) (cm) 0.35 -Tunneling No -Undermining/Tunneling No -Circular Undermining No -Wound/Ulcer Outcome Not Healed Healed- Epithelialized -Ulcer Cleansing Rinsed/ Irrigated with Saline -Foul Odor after Cleansing No -Bioengineered Tissue No -Bleeding Controlled with Pressure -Treatment Response Procedure Tolerated Well -Offloading No -Debridement - Subq, 1st 20sq cm Yes Pain Scale: 0-10 Numeric Is Patient Pain Free? Yes Yes - Nurse 3 - General Ulcer D/C NN Start: 07/27/23 08:02 Freq: Status: Active Protocol: Activity Type Activity Date Activity User E-sign Co-sign Detail Recorded Client Recorded Date Recorded By Document 07/27/23 08:35 [employer] Desktop 07/27/23 08:35 BMF Document 08/03/23 08:18 MW Desktop 08/03/23 08:19 MW Document 08/03/23 08:20 GM Tablet 08/03/23 08:21 GM 07/27/23 08/03/23 08/03/23 08:35 08:18 08:20 Wound Care Center Nurse 3 #1- chin -Ulcer Cleansing Rinsed/ Irrigated with Saline -Foul Odor after Cleansing No -Primary Dressing Applied Promogran -Primary Dressing Covered/Secured with Dry Gauze, Secured with Tape -Promogran 1 Treatment Response Procedure Procedure Tolerated Well Tolerated Well Pain Scale: 0-10 Numeric Is Patient Pain Free? Yes Yes Yes WC - Visit Discharge Discharge Condition Stable Stable Stable Ambulatory Status Ambulatory Ambulatory Transportation Private Auto Private Auto Private Auto Accompanied by self Medication Reconcilliation completed & No provided to patient/care provider Clinical Summary of Care Provided Yes Notes: Discharge Assessment/Plan Assessment/Plan (1) Nonhealing nonsurgical wound: CODE(S): T14.8XXA - Other injury of unspecified body region, initial encounter PLAN: Discharge from the wound center Take the Augmentin 875 twice daily for 10 days Continue the valacyclovir 1000 mg 3 times daily for 7 days and then suppressive therapy of 1000 mg daily for 1 year Follow-up as needed (2) Open wound of chin: CODE(S): S01.80XA - Unspecified open wound of other part of head, initial encounter QUALIFIERS: Encounter type: initial encounter Qualified Code(s): S01.80XA - Unspecified open wound of other part of head, initial encounter (3) Herpes simplex type 2 infection: CODE(S): B00.9 - Herpesviral infection, unspecified
== END 2023-08-04 15:23 | disposition home or self-care (01) ==
LOC: WC 08:15
PROVIDERS: PCP Family Medicine; Referring Provider Internal Medicine Infectious Disease; Visit Provider Nurse Practitioner
DX: T14.8XXA Other injury of unspecified body region, initial encounter (principal); S01.80XA Unspecified open wound of other part of head, initial encounter; B00.9 Herpesviral infection, unspecified
CPT/HCPCS: 11042; 99212; G0463

== ENCOUNTER → 2023-09-02 | Outpatient (CLI) | payer BC, SELFPAY ==
[2023-09-02 17:49] LABS: Absolute Lymphocyte Count 0.77 X10^3/uL (0.83-4.51); Absolute Neutrophil Count 2.6 X10^3/uL (2.0-7.7); Basophil# 0.04 X10^3/uL; Eosinophil# 0.04 X10^3/uL; Hematocrit 37.2 % (37-47); Hemoglobin 11.4 g/dL (12.0-15.0); Lymphocyte # 0.77 X10^3/ul (0.83-4.51); Lymphocyte % 19.8 % (19-41); Mean Corp Hgb Conc 30.6 g/dL (32-36); Mean Corpuscular Hgb 27.3 pg (27.0-32.0); Mean Platelet Vol. 10.8 fl (6.2-12.0); Monocyte# 0.46 X10^3/uL; Monocyte% 11.9 % (0-10); NRBC Flagged by Analyzer 0 % (0-5); Neutrophil # 2.55 X10^3/uL (2.7-7.7); Neutrophil % 65.8 % (47-70); Platelet Count 319 K/mm3 (150-450); RBC Distribution Width CV 18.2 % (11.6-14.6); RBC Distribution Width SD 59.1 fl (35.1-43.9); Red Blood Count 4.18 M/mm3 (4.2-5.4); White Blood Count 3.9 K/mm3 (4.4-11.0)
[2023-09-02 18:16] LABS: Color, Urine Yellow (Yellow); Glucose, Dipstick Normal (Normal); Ketone-Dipstick Negative (Negative); Leukocyte Esterase-Dipstick Negative /ul (Negative); Nitrite-Dipstick Negative (Negative); Occult Blood-Urine 50 /ul (Negative); Protein-Dipstick 100 mg/dl (Negative); Urine Bilirubin Dipstick Negative (Negative); Urine Clarity Sl. Cloudy (Clear); Urine Urobilinogen Normal (Normal)
[2023-09-02 18:39] LABS: ALB/GLOB Ratio 0.8 RATIO (0.9-2.4); AST(SGOT) 8 U/L (15-37); Alanine Aminotransfer ALT/SGPT 12 U/L (13-56); Albumin, Serum 3.1 g/dL (3.2-5.0); Alkaline Phosphatase 82 U/L (45-117); Anion Gap 5 (5-15); BUN 14 mg/dL (7-18); BUN/Creat Ratio 15.4 RATIO (10-20); Calcium,Total 8.2 mg/dL (8.5-10.1); Chloride 110 mmol/L (98-107); Creatinine, Serum 0.91 mg/dL (0.55-1.02); EST Glomerular Filtration Rate 74 mL/min (>60); Est Glom Filt Rate - Afr Amer 90 mL/min (>60); Globulin 4.1 g/dL (2.2-4.2); Glucose 83 mg/dL (74-106); Potassium 3.7 mmol/L (3.5-5.1); Protein, Total 7.2 g/dL (6.4-8.2); Sodium Level 141 mmol/L (136-145)
[2023-09-02 19:30] LABS: Protein, Urine (Random) 64.3 mg/dL (<11.9); Protein:Creat Ratio 348 mg/g CRE (0-200)
[2023-09-04 08:07] LABS: Complement C3 107 mg/dL (82-167)
[2023-09-05 13:07] LABS: Anti-dsDNA Ab 42 IU/mL (0-9)
== END | disposition home or self-care (01) ==
LOC: MTLAB 16:39
PROVIDERS: PCP Family Medicine; Referring Provider Internal Medicine Rheumatology; Visit Provider Internal Medicine Rheumatology
DX: M32.9 Systemic lupus erythematosus, unspecified (principal); Z79.52 Long term (current) use of systemic steroids; I10 Essential (primary) hypertension
CPT/HCPCS: 36415; 80053; 81002; 82570; 84156; 85025; 86160; 86225

== ENCOUNTER → 2024-01-03 | Outpatient (CLI) | payer BC, SELFPAY ==
[2024-01-03 18:34] LABS: PTHIN 104.8 pg/mL (18.4-80.1)
[2024-01-03 18:43] LABS: Color, Urine Yellow (Yellow); Glucose, Dipstick Normal (Normal); Ketone-Dipstick 5 mg/dl (Negative); Leukocyte Esterase-Dipstick 500 /ul (Negative); Nitrite-Dipstick Negative (Negative); Occult Blood-Urine 50 /ul (Negative); Protein-Dipstick 100 mg/dl (Negative); Urine Bilirubin Dipstick Negative (Negative); Urine Clarity Clear (Clear); Urine Urobilinogen Normal (Normal)
[2024-01-03 18:44] LABS: Absolute Lymphocyte Count 0.89 X10^3/uL (0.83-4.51); Absolute Neutrophil Count 2.6 X10^3/uL (2.0-7.7); Basophil# 0.02 X10^3/uL; Basophil% 0.5 % (0-1); Eosinophil# 0.02 X10^3/uL; Eosinophils% 0.5 % (0-5); Hematocrit 37.6 % (37-47); Lymphocyte # 0.89 X10^3/ul (0.83-4.51); Lymphocyte % 22.9 % (19-41); Mean Corp Hgb Conc 31.9 g/dL (32-36); Mean Corpuscular Hgb 27.2 pg (27.0-32.0); Mean Corpuscular Volume 85.3 fL (81-99); Mean Platelet Vol. 10.8 fl (6.2-12.0); Monocyte# 0.35 X10^3/uL; NRBC Flagged by Analyzer 0 % (0-5); Neutrophil % 66.8 % (47-70); Platelet Count 289 K/mm3 (150-450); RBC Distribution Width CV 14.2 % (11.6-14.6); RBC Distribution Width SD 43.9 fl (35.1-43.9); Red Blood Count 4.41 M/mm3 (4.2-5.4); White Blood Count 3.9 K/mm3 (4.4-11.0)
[2024-01-03 19:04] LABS: Protein, Urine (Random) 71.8 mg/dL (<11.9); Protein:Creat Ratio 574 mg/g CRE (0-200)
[2024-01-03 19:49] LABS: ALB/GLOB Ratio 0.9 RATIO (0.9-2.4); AST(SGOT) 12 U/L (15-37); Alanine Aminotransfer ALT/SGPT 12 U/L (13-56); Albumin, Serum 3.4 g/dL (3.2-5.0); Alkaline Phosphatase 79 U/L (45-117); Anion Gap 8 (5-15); BUN 18 mg/dL (7-18); Calcium,Total 8.3 mg/dL (8.5-10.1); Chloride 113 mmol/L (98-107); EST Glomerular Filtration Rate 54 mL/min (>60); Est Glom Filt Rate - Afr Amer 65 mL/min (>60); Free T3 2.2 pg/mL (2.18-3.98); Globulin 3.9 g/dL (2.2-4.2); Glucose 78 mg/dL (74-106); Potassium 4.2 mmol/L (3.5-5.1); Protein, Total 7.3 g/dL (6.4-8.2); Sodium Level 138 mmol/L (136-145); T4 Free Direct 1.04 ng/dL (0.76-1.46)
[2024-01-05 05:07] LABS: Complement C3 107 mg/dL (82-167); Thyroid Peroxidase AB 20 IU/mL (0-34)
[2024-01-05 11:09] LABS: Anti-dsDNA Ab 43 IU/mL (0-9)
== END | disposition home or self-care (01) ==
LOC: MTLAB 16:09
PROVIDERS: PCP Family Medicine; Referring Provider Dermatology Pediatric Dermatology; Visit Provider Dermatology Pediatric Dermatology
DX: M32.9 Systemic lupus erythematosus, unspecified (principal); Z79.52 Long term (current) use of systemic steroids; L93.1 Subacute cutaneous lupus erythematosus; L80 Vitiligo; L30.5 Pityriasis alba
CPT/HCPCS: 36415; 80053; 81002; 82570; 83970; 84156; 84439; 84443; 84481; 85025; 86160; 86225; 86376

== ENCOUNTER → 2024-01-27 | Outpatient (CLI) | payer BC, SELFPAY ==
[2024-01-27 10:16] LABS: Hematocrit 32.9 % (37-47); Hemoglobin 10.3 g/dL (12.0-15.0); Mean Corp Hgb Conc 31.3 g/dL (32-36); Mean Corpuscular Hgb 26.6 pg (27.0-32.0); Mean Platelet Vol. 10.4 fl (6.2-12.0); Platelet Count 211 K/mm3 (150-450); RBC Distribution Width CV 15.7 % (11.6-14.6); Red Blood Count 3.87 M/mm3 (4.2-5.4); White Blood Count 2.5 K/mm3 (4.4-11.0)
[2024-01-27 10:20] LABS: Protein, Urine (Random) 122.1 mg/dL (<11.9); Protein:Creat Ratio 754 mg/g CRE (0-200)
[2024-01-27 10:41] LABS: BUN 10 mg/dL (7-18); Calcium,Total 8.1 mg/dL (8.5-10.1); Chloride 113 mmol/L (98-107); Creatinine, Serum 0.83 mg/dL (0.55-1.02); EST Glomerular Filtration Rate 82 mL/min (>60); Est Glom Filt Rate - Afr Amer 99 mL/min (>60); Glucose 79 mg/dL (74-106); Iron 52 ug/dL (50-170); Iron Binding Capacity,Total 189 ug/dL (250-450); PERCENT IRON SATURATION 27.5 % (15.0-55.0); Potassium 3.7 mmol/L (3.5-5.1); Sodium Level 140 mmol/L (136-145)
== END | disposition home or self-care (01) ==
LOC: MTLAB 08:35
PROVIDERS: PCP Family Medicine; Referring Provider Internal Medicine Nephrology; Visit Provider Internal Medicine Nephrology
DX: M32.14 Glomerular disease in systemic lupus erythematosus (principal); R80.9 Proteinuria, unspecified; D50.9 Iron deficiency anemia, unspecified
CPT/HCPCS: 36415; 80069; 82570; 83540; 83550; 84156; 85027

== ENCOUNTER 2024-02-15 08:45 | Outpatient (RCR) | payer BC, SELFPAY ==
[2024-02-01 09:10] VITALS: BP 117/78; PULSE 74; RESP 16; TEMP 36.9; BMI 21.6
--- NOTE | 2024-02-01 11:02 | PCM.WC.PN ---
History of Present Illness Date of Service: 02/01/24 Chief Complaint: Follow-up on a chin wound History of Wound: 38-year-old black female who in December developed again another pimple on her chin in the same exact spot that opened up into a wound like last year. Biopsy last year showed cold sore was started on Valtrex by her family doctor in December and then [facility] [facility] restarted in January she still states it is there and will not go away right now it has a small scab that we are can remove and culture the area. Currently she is on Levaquin without a culture from the I&D Dr. Progress of Wound: Will try using a product of Promogran on it to see if we can close it up it is just like an open wound now on her chin with absence of pigmentation around the area and her skin. She was currently working with [facility] and getting her skin pigmentation back. Subjective Subjective Patient approves of the treatment of care Objective Data Objective Data No sign of infection we will culture the area and see if she is on the right antibiotic. Also started her on Promogran to see if we can close it Vital Signs: Vital Signs Temp Pulse Resp BP O2 Del Method 98.4 F 74 16 117/78 Room Air 02/01/24 09:10 02/01/24 09:10 02/01/24 09:10 02/01/24 09:10 02/01/24 09:10 Oxygen Delivery Method Room Air Weight: 138 lb Body Mass Index (BMI) 21.6 Physical Exam Const oriented x3 General Appearance: cooperative Exam Limitations: no limitations HEENT normocephalic Head and Scalp: normal to inspection Face and Sinus: Negative for normal facial exam Eyes PERRL General Eye: normal appearance of both eyes Neck full ROM General: normal visual inspection Resp normal respiratory effort Effort and Inspection: able to speak in complete sentences Auscultation: clear to auscultation bilaterally Cardio regular rate and regular rhythm Palpation: normal PMI Rate: regular rate Rhythm: regular rhythm Back/Spine Cervical Spine: cervical ROM normal Skin Wound Narrative: Open wound right side of chin with on discolored skin patch Neuro oriented x3 Psych Appearance: grossly normal Speech: normal speech Thought Content: normal thought content Judgement: judgement good Debridement Note Debridement Note Post-Debridement Measurements and Additional Note: Post-Debridement Measurements/Treatment WC - Nurse 1 - General Ulcer Assessment Start: 02/01/24 09:10 Freq: Status: Active Protocol: SANDRITA Activity Type Activity Date Activity User E-sign Co-sign Detail Recorded Client Recorded Date Recorded By Document 02/01/24 09:10 BM Desktop 02/01/24 09:18 BM 02/01/24 09:10 WC - Today's Visit Information Type of service Initial Visit Arrival Mode Ambulatory Transfer Assistance None Patient Identification Verified (Name & Yes ) Patient Requires Transmission-Based No Precautions Height and Weight Height 5 ft 7 in Weight 138 lb Weight in Pounds 138.0 lbs Weight Measurement Method Stated by Patient Body Mass Index (BMI) 21.6 BMI Classification Normal BSA - Dean 1.73 Vital Signs Temperature (97.8 F-99.1 F) 98.4 F Temperature Source Temporal Pulse Rate (60-100) 74 Pulse Location Monitor Respiratory Rate (12-18) 16 Respiratory rate source Observation Oxygen Delivery Method Room Air Blood Pressure (90/60-120/80) 117/78 Blood Pressure Mean 91 Source Monitor Position Sitting Blood Pressure Location Left Arm History Since Last Visit- (Skip if this is Patient's initial visit) Left Footwear Regular Shoe Right Footwear Regular Shoe Pain Scale: 0-10 Numeric Is Patient Pain Free? Yes Communication Assessment Preferred language Egyptian Manager Programming Required No Able to Read Yes Able to Write Yes Communication Tools None Right Hearing Abillity Normal Left Hearing Abillity Normal Visual Assistive Devices None Teaching Assessment Preferences Verbal,Written, Audio/Visual, Demonstration Barriers to Learning None Readiness To Learn Excellent Willingness to Engage in Self Management High Activies Readiness to Engage in Self Management High Activities Anxiety Level Calm Cooperation Cooperative Perception Coherent Interest in Health Problem Asks Questions Education Importance Acknowledges Need Does Patient Smoke tobacco or other No substances Smoking Status Never smoker Is Patient Diabetic No Functional Assessment Recent Decline in Ability to Perform Denies Any Declines Culture/Scientologist/Hot Blaster Cultural/Scientologist Needs that may affect No Treatment Plan Teaching: Wound Center Dressing Your Wound -Person Taught Patient -Teaching Method Discussion -Response to teaching Verbalize understanding *Welcome to the Wound Center -Person Taught Patient -Teaching Method Discussion -Response to teaching Verbalize understanding KRYSTINA - Nurse 1 - General Ulcer Measurement Start: 02/01/24 09:10 Freq: Status: Active Protocol: Activity Type Activity Date Activity User E-sign Co-sign Detail Recorded Client Recorded Date Recorded By Document 02/01/24 09:10 BMF Desktop 02/01/24 09:18 BMF 02/01/24 09:10 Wound Center Nurse 1 #2- CHIN -Combined with other wound No -Current Size (cm) - Length 0.5 -Current Size (cm) - Width 0.3 -Current Size (cm) - Depth 0.1 -Total Square Cm 0.15 -Date of Last Picture (Recall this 02/01/24 field) -Photo Taken Yes -Epithelialization None Present -Tunneling No -Undermining/Tunneling No -Circular Undermining No -Exudate Amt None Present -Wound Margin Distinct, Outline Attached -Granulation Amt None Present (0 %) -Slough/Fibrin Yes -Necrosis Amt Large (67-100%) -Necrotic Tissue Type Eschar -Texture (Ashlee-wound Skin Appearance) Assessed -Moisture (Ashlee-wound Skin Appearance) Assessed -Color (Ashlee-wound Skin Appearance) Assessed -Temperature (Ashlee-wound Skin No Abnormality Appearance) (Pt Warm) -Tenderness on Palpation (Ashlee-wound No Skin Appearance) -Ulcer Cleansing Rinsed/ Irrigated with Saline -Foul Odor after Cleansing No -Anesthetic Used 5% Lidocaine Gel WC - Nurse 2 - General Ulcer CM Notes Start: 02/01/24 09:10 Freq: Status: Active Protocol: Activity Type Activity Date Activity User E-sign Co-sign Detail Recorded Client Recorded Date Recorded By Document 02/01/24 09:28 MW Desktop 02/01/24 09:36 MW 02/01/24 09:28 Wound Center Nurse 2 -Time 09:34 -Correct Patient Yes -Correct Side, Site, Position Yes -Correct Procedure Yes -Procedure Performed Yes -Type of Procedure Debridement -Clinical Debridement Subcutaneous -Tissue Removed Subcutaneous -Post Debridement (cm) - Length 0.8 -Post Debridement (cm) - Width 0.6 -Post Debridement (cm) - Depth 0.2 -Total Square (Post) (cm) 0.48 -Area of Debridement (cm) - Length 0.8 -Area of Debridement (cm) - Width 0.6 -Total Square (Area) (cm) 0.48 -Tunneling No -Undermining/Tunneling No -Circular Undermining No -Wound/Ulcer Outcome Not Healed -Ulcer Cleansing Rinsed/ Irrigated with Saline -Foul Odor after Cleansing No -Bioengineered Tissue No -Bleeding Controlled with Pressure -Treatment Response Procedure Tolerated Well -Offloading No -Debridement - Subq, 1st 20sq cm Yes Pain Scale: 0-10 Numeric Is Patient Pain Free? Yes - Nurse 3 - General Ulcer D/C NN Start: 02/01/24 09:10 Freq: Status: Active Protocol: Activity Type Activity Date Activity User E-sign Co-sign Detail Recorded Client Recorded Date Recorded By Document 02/01/24 09:41 KW Desktop 02/01/24 09:42 KW 02/01/24 09:41 Wound Care Center Nurse 3 #2- CHIN -Ulcer Cleansing Rinsed/ Irrigated with Saline -Primary Dressing Applied Promogran -Primary Dressing Covered/Secured with Dry Gauze, Secured with Tape -Promogran 1 Pain Scale: 0-10 Numeric Is Patient Pain Free? Yes - Visit Discharge Discharge Condition Stable Ambulatory Status Ambulatory Transportation Private Auto Medication Reconcilliation completed & No provided to patient/care provider Clinical Summary of Care Provided Yes Assessment/Plan Assessment/Plan (1) Nonhealing nonsurgical wound: CODE(S): T14.8XXA - Other injury of unspecified body region, initial encounter PLAN: Wash area with antibacterial soap or Hibiclens apply the Promogran to wound base moistened then cover with Gauze and tape daily Cultures obtained will call with results Continue taking Levaquin as prescribed Follow-up in 1 week (2) Open wound of chin: CODE(S): S01.80XA - Unspecified open wound of other part of head, initial encounter QUALIFIERS: Encounter type: initial encounter Qualified Code(s): S01.80XA - Unspecified open wound of other part of head, initial encounter (3) Herpes simplex type 2 infection: CODE(S): B00.9 - Herpesviral infection, unspecified
[2024-02-15 08:50] VITALS: BP 124/87; PULSE 78; RESP 18; TEMP 36.8; BMI 21.6
--- NOTE | 2024-02-15 12:15 | PN.PCM_ITS ---
History of Present Illness Date of Service: 02/15/24 Chief Complaint: Follow-up on a chin wound History of Wound: 38-year-old black female who in December developed again another pimple on her chin in the same exact spot that opened up into a wound like last year. Biopsy last year showed cold sore was started on Valtrex by her family doctor in December and then Trillium [place] restarted in January she still states it is there and will not go away right now it has a small scab that we are can remove and culture the area. Currently she is on Levaquin without a culture from the I&D Dr. Progress of Wound: Will try using a product of Promogran on it to see if we can close it up it is just like an open wound now on her chin with absence of pigmentation around the area and her skin. She was currently working with [facility] and getting her skin pigmentation back. She healed nicely in 1 week but then developed another like pimple and adjacent to the 1 that she has so I opened it with a blade and we are culturing it to see if there is anything growing in it did get some whitish discharge out of it we will continue with the Promogran to the new area and follow-up in 2 weeks. Please to go over cultures and make sure that she is healed . Subjective Subjective Patient is agreeable to plan Objective Data Objective Data Chin is healed nicely on the product Vital Signs: Vital Signs Temp Pulse Resp BP O2 Del Method 98.2 F 78 18 124/87 H Room Air 02/15/24 08:50 02/15/24 08:50 02/15/24 08:50 02/15/24 08:50 02/15/24 08:50 Oxygen Delivery Method Room Air Weight: 138 lb Body Mass Index (BMI) 21.6 Lab / Micro Data Micro: Microbiology 02/01/24 09:30 Wound - Face Gram Stain - Final 02/01/24 09:30 Wound - Face Wound Culture - Final No growth aerobically. 02/01/24 09:30 Wound - Face Anaerobic Culture - Final No growth in 5 days. Physical Exam Const oriented x3 General Appearance: cooperative Exam Limitations: no limitations HEENT normocephalic Head and Scalp: normal to inspection Face and Sinus: Negative for normal facial exam Eyes PERRL General Eye: normal appearance of both eyes Neck full ROM General: normal visual inspection Resp normal respiratory effort Effort and Inspection: able to speak in complete sentences Auscultation: clear to auscultation bilaterally Cardio regular rate and regular rhythm Palpation: normal PMI Rate: regular rate Rhythm: regular rhythm Back/Spine Cervical Spine: cervical ROM normal Skin Wound Narrative: Open wound right side of chin with on discolored skin patch Neuro oriented x3 Psych Appearance: grossly normal Speech: normal speech Thought Content: normal thought content Judgement: judgement good Debridement Note Debridement Note No debridement was completed: No debridement was completed today Post-Debridement Measurements and Additional Note: Post-Debridement Measurements/Treatment - Nurse 1 - General Ulcer Assessment Start: 02/01/24 09:10 Freq: Status: Active Protocol: [facility] Management[facility] Activity Type Activity Date Activity User E-sign Co-sign Detail Recorded Client Recorded Date Recorded By Document 02/01/24 09:10 [employer] Desktop 02/01/24 09:18 [employer] Document 02/15/24 08:50 [email or web address] 02/15/24 08:53 [employer] 02/01/24 02/15/24 09:10 08:50 - Today's Visit Information Type of service Initial Visit 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 ) Arrival Mode Ambulatory Ambulatory Transfer Assistance None None Patient Identification Verified (Name & Yes Yes ) Patient Requires Transmission-Based No No Precautions Height and Weight Height 5 ft 7 in Weight 138 lb Weight in Pounds 138.0 lbs Weight Measurement Method Stated by Patient Body Mass Index (BMI) 21.6 21.6 BMI Classification Normal Normal BSA - Dean 1.73 Vital Signs Temperature (97.8 F-99.1 F) 98.4 F 98.2 F Temperature Source Temporal Temporal Pulse Rate (60-100) 74 78 Pulse Location Monitor Monitor Respiratory Rate (12-18) 16 18 Respiratory rate source Observation Observation Oxygen Delivery Method Room Air Room Air Blood Pressure (90/60-120/80) 117/78 124/87 H Blood Pressure Mean (mm Hg) 91 99 Source Monitor Monitor Position Sitting Blood Pressure Location Left Arm History Since Last Visit- (Skip if this is Patient's initial visit) Have you changed medications since your No last visit? Any new allergies or adverse reactions No Had a fall/change in ADL's that may No increase risk of falls Signs or symptoms of abuse and/or No neglect since last visit Have you been in the hospital since your No last visit? Has dressing in place as prescribed No Has compression in place as prescribed N/A Has offloadiing in place as prescribed N/A Experienced any changes in pain level or No management Left Footwear Regular Shoe Right Footwear Regular Shoe Pain Scale: 0-10 Numeric Is Patient Pain Free? Yes Yes Communication Assessment Preferred language Romansh Mechanical Facilities Technician Required No Able to Read Yes Able to Write Yes Communication Tools None Right Hearing Abillity Normal Left Hearing Abillity Normal Visual Assistive Devices None Teaching Assessment Preferences Verbal,Written, Audio/Visual, Demonstration Barriers to Learning None Readiness To Learn Excellent Willingness to Engage in Self Management High Activies Readiness to Engage in Self Management High Activities Anxiety Level Calm Cooperation Cooperative Perception Coherent Interest in Health Problem Asks Questions Education Importance Acknowledges Need Does Patient Smoke tobacco or other No substances Smoking Status Never smoker Is Patient Diabetic No Functional Assessment Recent Decline in Ability to Perform Denies Any Declines Culture/Scientologist/Saw Boss Cultural/Scientologist Needs that may affect No Treatment Plan Teaching: Wound Center Dressing Your Wound -Person Taught Patient -Teaching Method Discussion -Response to teaching Verbalize understanding *Welcome to the Wound Center -Person Taught Patient -Teaching Method Discussion -Response to teaching Verbalize understanding WC - Nurse 1 - General Ulcer Measurement Start: 02/01/24 09:10 Freq: Status: Active Protocol: Activity Type Activity Date Activity User E-sign Co-sign Detail Recorded Client Recorded Date Recorded By Document 02/01/24 09:10 [facility] Desktop 02/01/24 09:18 BM Document 02/15/24 08:50 [facility] Desktop 02/15/24 08:53 [facility] 02/01/24 02/15/24 09:10 08:50 Wound Center Nurse 1 #2- CHIN -Combined with other wound No -Current Size (cm) - Length 0.5 0.2 -Current Size (cm) - Width 0.3 0.1 -Current Size (cm) - Depth 0.1 0.1 -Total Square Cm 0.15 0.02 -Date of Last Picture (Recall this 02/01/24 field) -Photo Taken Yes -Epithelialization None Present -Tunneling No -Undermining/Tunneling No -Circular Undermining No -Exudate Amt None Present None Present -Wound Margin Distinct, Distinct, Outline Outline Attached Attached -Granulation Amt None Present (0 Small (1-33%) %) -Granulation Quality [place] -Slough/Fibrin Yes -Necrosis Amt Large (67-100%) Small (1-33%) -Necrotic Tissue Type Eschar Eschar -Structure Exposed N/A -Texture (Ashlee-wound Skin Appearance) Assessed Scarring -Moisture (Ashlee-wound Skin Appearance) Assessed No Abnormality -Color (Ashlee-wound Skin Appearance) Assessed No Abnormality -Temperature (Ashlee-wound Skin No Abnormality No Abnormality Appearance) (Pt Warm) (Pt Warm) -Tenderness on Palpation (Ashlee-wound No No Skin Appearance) -Ulcer Cleansing Rinsed/ Rinsed/ Irrigated with Irrigated with Saline Saline -Foul Odor after Cleansing No No -Anesthetic Used 5% Lidocaine 5% Lidocaine Gel Gel WC - Nurse 2 - General Ulcer CM Notes Start: 02/01/24 09:10 Freq: Status: Active Protocol: Activity Type Activity Date Activity User E-sign Co-sign Detail Recorded Client Recorded Date Recorded By Document 02/01/24 09:28 MW Desktop 02/01/24 09:36 MW Document 02/15/24 08:59 MW Desktop 02/15/24 09:04 MW 02/01/24 02/15/24 09:28 08:59 Wound Center Nurse 2 #2- CHIN -Time 09:34 08:59 -Correct Patient Yes Yes -Correct Side, Site, Position Yes Yes -Correct Procedure Yes Yes -Procedure Performed Yes Yes -Type of Procedure Debridement Debridement -Clinical Debridement Subcutaneous Subcutaneous -Tissue Removed Subcutaneous Subcutaneous -Post Debridement (cm) - Length 0.8 0.2 -Post Debridement (cm) - Width 0.6 0.2 -Post Debridement (cm) - Depth 0.2 0.1 -Total Square (Post) (cm) 0.48 0.04 -Area of Debridement (cm) - Length 0.8 0.2 -Area of Debridement (cm) - Width 0.6 0.2 -Total Square (Area) (cm) 0.48 0.04 -Tunneling No No -Undermining/Tunneling No No -Circular Undermining No No -Wound/Ulcer Outcome Not Healed Not Healed -Ulcer Cleansing Rinsed/ Irrigated with Saline -Foul Odor after Cleansing No No -Bioengineered Tissue No No -Bleeding Controlled with Pressure Pressure -Treatment Response Procedure Procedure Tolerated Well Tolerated Well -Offloading No No -Debridement - Subq, 1st 20sq cm Yes Yes Pain Scale: 0-10 Numeric Is Patient Pain Free? Yes Yes - Nurse 3 - General Ulcer D/C NN Start: 02/01/24 09:10 Freq: Status: Active Protocol: Activity Type Activity Date Activity User E-sign Co-sign Detail Recorded Client Recorded Date Recorded By Document 02/01/24 09:41 KW Desktop 02/01/24 09:42 KW Document 02/15/24 09:10 Desktop 02/15/24 09:12 02/01/24 02/15/24 09:41 09:10 Wound Care Center Nurse 3 #2- CHIN -Ulcer Cleansing Rinsed/ Not Cleansed Irrigated with Saline -Foul Odor after Cleansing No -Primary Dressing Applied Promogran Promogran -Primary Dressing Covered/Secured with Dry Gauze, Dry Gauze, Secured with Secured with Tape Tape -Promogran 1 2 Pain Scale: 0-10 Numeric Is Patient Pain Free? Yes Yes Teaching: Wound Center Dressing Your Wound -Person Taught Patient -Teaching Method Discussion, Demonstration -Response to teaching Verbalize understanding - Visit Discharge Discharge Condition Stable Stable Ambulatory Status Ambulatory Ambulatory Transportation Private Auto Private Auto Medication Reconcilliation completed & No provided to patient/care provider Clinical Summary of Care Provided Yes Yes Assessment/Plan Assessment/Plan (1) Nonhealing nonsurgical wound: CODE(S): T14.8XXA - Other injury of unspecified body region, initial encounter PLAN: Wash area with antibacterial soap or Hibiclens apply the Promogran to wound base moistened then cover with Gauze and tape daily Cultures obtained will call with results Continue taking Levaquin as prescribed Follow-up in 2 week (2) Open wound of chin: CODE(S): S01.80XA - Unspecified open wound of other part of head, initial encounter QUALIFIERS: Encounter type: initial encounter Qualified Code(s): S01.80XA - Unspecified open wound of other part of head, initial encounter (3) Herpes simplex type 2 infection: CODE(S): B00.9 - Herpesviral infection, unspecified
--- NOTE | 2024-02-20 15:01 | WC ---
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 REVIEWED PTS CX RESULTS. START RIFAMPIN AND LINEZOLID. WILL CALL IN TO PTS PREFERRED PHARMACY- [facility]. VERIFIED THAT PT HAS NO ALLERGIES. LFT MSG ON PT'S VOICEMAIL.
== END 2024-02-21 23:59 | disposition home or self-care (01) ==
LOC: WC 08:45
PROVIDERS: PCP Family Medicine; Referring Provider Family Medicine; Visit Provider Nurse Practitioner
DX: T14.8XXA Other injury of unspecified body region, initial encounter (principal); S01.80XA Unspecified open wound of other part of head, initial encounter; B00.9 Herpesviral infection, unspecified
CPT/HCPCS: 11042; 87070; 87075; 87077; 87186; 87205; 99213; G0463

== ENCOUNTER 2024-03-21 08:45 | Outpatient (RCR) | payer BC, SELFPAY ==
[2024-02-22 00:31] VITALS: BP 124/87; PULSE 78; RESP 18; TEMP 36.8; BMI 21.6
[2024-03-07 10:42] VITALS: BP 129/93; PULSE 82; RESP 18; TEMP 36.5; BMI 21.6
--- NOTE | 2024-03-07 12:55 | PN.PCM_ITS ---
History of Present Illness Date of Service: 03/07/24 Chief Complaint: Follow-up on a chin wound History of Wound: 38-year-old black female who in December developed again another pimple on her chin in the same exact spot that opened up into a wound like last year. Biopsy last year showed cold sore was started on Valtrex by her family doctor in December and then Trillium [place] restarted in January she still states it is there and will not go away right now it has a small scab that we are can remove and culture the area. Currently she is on Levaquin without a culture from the I&D Dr. Progress of Wound: So patient was growing different bacteria's and cocci in her chin that was almost closed and I started her on rifampin and his Cielo avoid. Patient is completely done with all her medications and did well patient is going to be discharged now from the wound center and hopefully not return. Subjective Subjective Patient was very pleased with outcomes and is going to continue using the cream for vitiligo Objective Data Objective Data Wound has a small lump but I told her that will probably absorb try not to put any cream on top of that otherwise leave open to air follow-up as needed Vital Signs: Vital Signs Temp Pulse Resp BP 97.7 F L 82 18 129/93 H 03/07/24 10:42 03/07/24 10:42 03/07/24 10:42 03/07/24 10:42 Weight: 138 lb Body Mass Index (BMI) 21.6 Lab / Micro Data Attestation: I reviewed the patient's lab results. Physical Exam Const oriented x3 General Appearance: cooperative Exam Limitations: no limitations HEENT normocephalic Head and Scalp: normal to inspection Face and Sinus: Negative for normal facial exam Eyes PERRL General Eye: normal appearance of both eyes Neck full ROM General: normal visual inspection Resp normal respiratory effort Effort and Inspection: able to speak in complete sentences Auscultation: clear to auscultation bilaterally Cardio regular rate and regular rhythm Palpation: normal PMI Rate: regular rate Rhythm: regular rhythm Back/Spine Cervical Spine: cervical ROM normal Skin Wound Narrative: Open wound right side of chin with on discolored skin patch Neuro oriented x3 Psych Appearance: grossly normal Speech: normal speech Thought Content: normal thought content Judgement: judgement good Debridement Note Debridement Note No debridement was completed: No debridement was completed today Post-Debridement Measurements and Additional Note: Post-Debridement Measurements/Treatment KRYSTINA - Nurse 1 - General Ulcer Assessment Start: 03/07/24 10:41 Freq: Status: Active Protocol: SANDRITA Activity Type Activity Date Activity User E-sign Co-sign Detail Recorded Client Recorded Date Recorded By Document 03/07/24 10:42 DL 08.02..7 03/07/24 10:46 DL 03/07/24 10:42 WC - Today's Visit Information Type of service Follow-up Visit (Physician/MANAGER MISSION ) Arrival Mode Ambulatory Transfer Assistance None Patient Identification Verified (Name & Yes ) Patient Requires Transmission-Based No Precautions Height and Weight Body Mass Index (BMI) 21.6 BMI Classification Normal Vital Signs Temperature (97.8 F-99.1 F) 97.7 F L Temperature Source Temporal Pulse Rate (60-100) 82 Pulse Location Monitor Respiratory Rate (12-18) 18 Respiratory rate source Observation Blood Pressure (90/60-120/80) 129/93 H Blood Pressure Mean (mm Hg) 105 Source Monitor History Since Last Visit- (Skip if this is Patient's initial visit) Have you changed medications since your No last visit? Any new allergies or adverse reactions No Had a fall/change in ADL's that may No increase risk of falls Signs or symptoms of abuse and/or No neglect since last visit Have you been in the hospital since your No last visit? Has dressing in place as prescribed No Has offloadiing in place as prescribed N/A Experienced any changes in pain level or Yes management Pain Scale: 0-10 Numeric Is Patient Pain Free? Yes KRYSTINA - Nurse 1 - General Ulcer Measurement Start: 03/07/24 10:41 Freq: Status: Active Protocol: Activity Type Activity Date Activity User E-sign Co-sign Detail Recorded Client Recorded Date Recorded By Document 03/07/24 10:42 DL [id number] 03/07/24 10:46 DL 03/07/24 10:42 Wound Center Nurse 1 #2- CHIN -Current Size (cm) - Length 0.1 -Current Size (cm) - Width 0.1 -Current Size (cm) - Depth 0.1 -Total Square Cm 0.01 -Exudate Amt None Present -Wound Margin Thickened -Granulation Amt Small (1-33%) -Granulation Quality [place] -Necrosis Amt Small (1-33%) -Necrotic Tissue Type Eschar -Structure Exposed N/A -Texture (Ashlee-wound Skin Appearance) Scarring -Moisture (Ashlee-wound Skin Appearance) No Abnormality -Color (Ashlee-wound Skin Appearance) No Abnormality -Temperature (Ashlee-wound Skin No Abnormality Appearance) (Pt Warm) -Ulcer Cleansing Rinsed/ Irrigated with Saline -Foul Odor after Cleansing No -Anesthetic Used 5% Lidocaine Gel WC - Nurse 2 - General Ulcer CM Notes Start: 03/07/24 10:41 Freq: Status: Active Protocol: Activity Type Activity Date Activity User E-sign Co-sign Detail Recorded Client Recorded Date Recorded By Document 03/07/24 11:02 [facility] wound center 03/07/24 11:05 [facility] 03/07/24 11:02 Wound Center Nurse 2 -Post Debridement (cm) - Length 0 -Post Debridement (cm) - Width 0 -Post Debridement (cm) - Depth 0 -Total Square (Post) (cm) 0 -Area of Debridement (cm) - Length 0 -Area of Debridement (cm) - Width 0 -Total Square (Area) (cm) 0 -Tunneling No -Undermining/Tunneling No -Circular Undermining No -Wound/Ulcer Outcome Healed- Epithelialized Pain Scale: 0-10 Numeric Is Patient Pain Free? Yes - Nurse 3 - General Ulcer D/C NN Start: 03/07/24 10:41 Freq: Status: Active Protocol: Activity Type Activity Date Activity User E-sign Co-sign Detail Recorded Client Recorded Date Recorded By Document 03/07/24 11:06 [facility] wound center 03/07/24 11:06 [facility] 03/07/24 11:06 Is Patient Pain Free? Yes WC - Visit Discharge Discharge Condition Stable Ambulatory Status Ambulatory Transportation Private Auto Notes: chin wound healed. ok to LOTA Assessment/Plan Assessment/Plan (1) Nonhealing nonsurgical wound: CODE(S): T14.8XXA - Other injury of unspecified body region, initial encounter PLAN: Wound is healed patient will be discharged from the wound center and can follow-up only as needed. (2) Open wound of chin: CODE(S): S01.80XA - Unspecified open wound of other part of head, initial encounter QUALIFIERS: Encounter type: initial encounter Qualified Code(s): S01.80XA - Unspecified open wound of other part of head, initial encounter (3) Herpes simplex type 2 infection: CODE(S): B00.9 - Herpesviral infection, unspecified (4) Infected wound: CODE(S): T14.8XXA - Other injury of unspecified body region, initial encounter; L08.9 - Local infection of the skin and subcutaneous tissue, unspecified PLAN: Finished antibiotic therapy of rifampin and Linzoid tolerated well
[2024-03-21 08:52] VITALS: BP 125/91; PULSE 87; RESP 18; TEMP 36.6; BMI 21.6
--- NOTE | 2024-03-21 10:18 | WC ---
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 Suspects/questions if some of patients autoimmune meds may be causing the sores on her chin.
--- NOTE | 2024-03-21 11:14 | PCM.WC.PN ---
History of Present Illness Date of Service: 03/21/24 Chief Complaint: Follow-up on a chin wound History of Wound: 38-year-old black female who in December developed again another pimple on her chin in the same exact spot that opened up into a wound like last year. Biopsy last year showed cold sore was started on Valtrex by her family doctor in December and then [employer] [place] restarted in January she still states it is there and will not go away right now it has a small scab that we are can remove and culture the area. Currently she is on Levaquin without a culture from the I[facility] Dr. Progress of Wound: Patient was discharged only 2 weeks ago and is returned with another sore on her chin. Looking at her medications that she is on she is on 3 different meds of belimumab, hydroxychloroquine and mycophenolate Mofetil And all of them have side effects of viral skin infections. We again cultured her chin after I debrided the scab off she gets like a 3 pimple the area on top of a hematoma type coloring. She states it started last Tuesday with the crusting and Tuesday it opened with yellow drainage coming out again and she started using her Promogran. Looks good starting to heal again but I think could be from her medications that she is developing these viral type wounds. Subjective Subjective Patient is discouraged but we will talk to her next week after she does the wound dressing changes and we get the cultures back. Objective Data Objective Data No angry skin around the area. Has a square of nonpigmented skin with a 3 pimples in the center of it. Cultures obtained Vital Signs: Vital Signs Temp Pulse Resp BP 97.9 F 87 18 125/91 H 03/21/24 08:52 03/21/24 08:52 03/21/24 08:52 03/21/24 08:52 Weight: 138 lb Body Mass Index (BMI) 21.6 Lab / Micro Data Attestation: I reviewed the patient's lab results. Physical Exam Const oriented x3 General Appearance: cooperative Exam Limitations: no limitations HEENT normocephalic Head and Scalp: normal to inspection Face and Sinus: Negative for normal facial exam Eyes PERRL General Eye: normal appearance of both eyes Neck full ROM General: normal visual inspection Resp normal respiratory effort Effort and Inspection: able to speak in complete sentences Auscultation: clear to auscultation bilaterally Cardio regular rate and regular rhythm Palpation: normal PMI Rate: regular rate Rhythm: regular rhythm Back/Spine Cervical Spine: cervical ROM normal Skin Wound Narrative: Open wound right side of chin with on discolored skin patch Neuro oriented x3 Psych Appearance: grossly normal Speech: normal speech Thought Content: normal thought content Judgement: judgement good Debridement Note Debridement Note Wound debrided: Chin wound Type of Debridement: Selective debridement Anesthesia Used: 5% Lidocaine Gel Depth: Down to and including healthy tissue Percentage of wound debrided: 100 Instrument Used: 3mm curette Tissue Removed: Devitalized tissue fibrin Severity: Limited To Skin Breakdown Amount of bleeding with debridement: None Bleeding Controlled with: Pressure Patient tolerated procedure: Patient tolerated procedure well Post-Debridement Measurements and Additional Note: Post-Debridement Measurements/Treatment - Nurse 1 - General Ulcer Assessment Start: 03/07/24 10:41 Freq: Status: Active Protocol: SANDRITA Activity Type Activity Date Activity User E-sign Co-sign Detail Recorded Client Recorded Date Recorded By Document 03/07/24 10:42 DL [email or web address] 03/07/24 10:46 DL Document 03/21/24 08:52 DL [email or web address] 03/21/24 08:56 DL 03/07/24 03/21/24 10:42 08:52 - Today's Visit Information Type of service Follow-up Visit Follow-up Visit (Physician/COMPRESSED YEAST SUPERVISOR (Physician/COMPRESSED YEAST SUPERVISOR ) ) Arrival Mode Ambulatory Ambulatory Transfer Assistance None None Patient Identification Verified (Name & Yes Yes ) Patient Requires Transmission-Based No No Precautions Height and Weight Body Mass Index (BMI) 21.6 21.6 BMI Classification Normal Normal Vital Signs Temperature (97.8 F-99.1 F) 97.7 F L 97.9 F Temperature Source Temporal Temporal Pulse Rate (60-100) 82 87 Pulse Location Monitor Monitor Respiratory Rate (12-18) 18 18 Respiratory rate source Observation Observation Blood Pressure (90/60-120/80) 129/93 H 125/91 H Blood Pressure Mean (mm Hg) 105 102 Source Monitor Monitor History Since Last Visit- (Skip if this is Patient's initial visit) Have you changed medications since your No No last visit? Any new allergies or adverse reactions No No Had a fall/change in ADL's that may No No increase risk of falls Signs or symptoms of abuse and/or No No neglect since last visit Have you been in the hospital since your No No last visit? Has dressing in place as prescribed No Yes Has compression in place as prescribed N/A Has offloadiing in place as prescribed N/A N/A Experienced any changes in pain level or Yes No management Pain Scale: 0-10 Numeric Is Patient Pain Free? Yes Yes WC - Nurse 1 - General Ulcer Measurement Start: 03/07/24 10:41 Freq: Status: Active Protocol: Activity Type Activity Date Activity User E-sign Co-sign Detail Recorded Client Recorded Date Recorded By Document 03/07/24 10:42 DL ..25.7 03/07/24 10:46 DL Document 03/21/24 08:52 DL .[id number]/21/24 08:56 DL 03/07/24 03/21/24 10:42 08:52 Wound Center Nurse 1 #2- CHIN -Current Size (cm) - Length 0.1 -Current Size (cm) - Width 0.1 -Current Size (cm) - Depth 0.1 -Total Square Cm 0.01 -Exudate Amt None Present -Wound Margin Thickened -Granulation Amt Small (1-33%) -Granulation Quality Hackberry -Necrosis Amt Small (1-33%) -Necrotic Tissue Type Eschar -Structure Exposed N/A -Texture (Ashlee-wound Skin Appearance) Scarring -Moisture (Aslhee-wound Skin Appearance) No Abnormality -Color (Ashlee-wound Skin Appearance) No Abnormality -Temperature (Ashlee-wound Skin No Abnormality Appearance) (Pt Warm) -Ulcer Cleansing Rinsed/ Irrigated with Saline -Foul Odor after Cleansing No -Anesthetic Used 5% Lidocaine Gel #3 Chin -Current Size (cm) - Length 0.1 -Current Size (cm) - Width 0.1 -Current Size (cm) - Depth 0.1 -Total Square Cm 0.01 -Photo Taken Yes -Classification - Thickness Unclassifiable (Eschar Covered ) -Exudate Amt None Present -Wound Margin Thickened -Granulation Amt Small (1-33%) -Granulation Quality Hackberry -Necrosis Amt Small (1-33%) -Necrotic Tissue Type Eschar -Structure Exposed N/A -Texture (Ashlee-wound Skin Appearance) Scarring -Moisture (Ashlee-wound Skin Appearance) No Abnormality -Color (Ashlee-wound Skin Appearance) No Abnormality -Temperature (Ashlee-wound Skin No Abnormality Appearance) (Pt Warm) -Ulcer Cleansing Rinsed/ Irrigated with Saline -Foul Odor after Cleansing No -Anesthetic Used 5% Lidocaine Gel WC - Nurse 2 - General Ulcer CM Notes Start: 03/07/24 10:41 Freq: Status: Active Protocol: Activity Type Activity Date Activity User E-sign Co-sign Detail Recorded Client Recorded Date Recorded By Document 03/07/24 11:02 [facility] wound center 03/07/24 11:05 [facility] Document 03/21/24 09:12 [place] [id number] 03/21/24 09:13 DS 03/07/24 03/21/24 11:02 09:12 Wound Center Nurse 2 #2- CHIN -Post Debridement (cm) - Length 0 -Post Debridement (cm) - Width 0 -Post Debridement (cm) - Depth 0 -Total Square (Post) (cm) 0 -Area of Debridement (cm) - Length 0 -Area of Debridement (cm) - Width 0 -Total Square (Area) (cm) 0 -Tunneling No -Undermining/Tunneling No -Circular Undermining No -Wound/Ulcer Outcome Healed- Epithelialized #3 Chin -Time 09:12 -Correct Patient Yes -Correct Side, Site, Position Yes -Correct Procedure Yes -Procedure Performed Yes -Type of Procedure Debridement -Clinical Debridement Subcutaneous -Tissue Removed Subcutaneous -Post Debridement (cm) - Length 0.1 -Post Debridement (cm) - Width 0.1 -Post Debridement (cm) - Depth 0.1 -Total Square (Post) (cm) 0.01 -Area of Debridement (cm) - Length 0.1 -Area of Debridement (cm) - Width 0.1 -Total Square (Area) (cm) 0.01 -Tunneling No -Undermining/Tunneling No -Circular Undermining No -Wound/Ulcer Outcome Not Healed -Ulcer Cleansing Rinsed/ Irrigated with Saline -Bleeding Controlled with Pressure -Treatment Response Procedure Tolerated Well -Debridement - Subq, 1st 20sq cm Yes Pain Scale: 0-10 Numeric Is Patient Pain Free? Yes Yes KRYSTINA - Nurse 3 - General Ulcer D/C NN Start: 03/07/24 10:41 Freq: Status: Active Protocol: Activity Type Activity Date Activity User E-sign Co-sign Detail Recorded Client Recorded Date Recorded By Document 03/07/24 11:06 [facility] wound center 03/07/24 11:06 [facility] Document 03/21/24 09:18 [facility] [id number] 03/21/24 09:18 [facility] 03/07/24 03/21/24 11:06 09:18 Wound Care Center Nurse 3 #3 Chin -Ulcer Cleansing Rinsed/ Irrigated with Saline -Foul Odor after Cleansing No -Primary Dressing Applied Promogran -Primary Dressing Covered/Secured with Dry Gauze, Secured with Tape -Promogran 1 Treatment Response Procedure Tolerated Well Pain Scale: 0-10 Numeric Is Patient Pain Free? Yes Yes WC - Visit Discharge Discharge Condition Stable Stable Ambulatory Status Ambulatory Ambulatory Transportation Private Auto Private Auto Notes: chin wound healed. ok to LOTA Assessment/Plan Assessment/Plan (1) Nonhealing nonsurgical wound: CODE(S): T14.8XXA - Other injury of unspecified body region, initial encounter (2) Open wound of chin: CODE(S): S01.80XA - Unspecified open wound of other part of head, initial encounter QUALIFIERS: Encounter type: subsequent encounter Qualified Code(s): S01.80XD - Unspecified open wound of other part of head, subsequent encounter PLAN: Wash area with Hibiclens and then apply Promogran to wound base and moisturize with saline or tap water cover with a small bandage daily Follow-up in 1 week Cultures obtained will contact her with results (3) Herpes simplex type 2 infection: CODE(S): B00.9 - Herpesviral infection, unspecified (4) Infected wound: CODE(S): T14.8XXA - Other injury of unspecified body region, initial encounter; L08.9 - Local infection of the skin and subcutaneous tissue, unspecified PLAN: Finished antibiotic therapy of rifampin and Linzoid tolerated well
== END 2024-03-23 23:59 | disposition home or self-care (01) ==
LOC: WC 08:45
PROVIDERS: PCP Family Medicine; Referring Provider Family Medicine; Visit Provider Nurse Practitioner
DX: T14.8XXA Other injury of unspecified body region, initial encounter (principal); L80 Vitiligo; B00.9 Herpesviral infection, unspecified; L08.9 Local infection of the skin and subcutaneous tissue, unspecified; S01.80XD Unspecified open wound of other part of head, subsequent encounter
CPT/HCPCS: 11042; 87070; 87075; 87077; 87205; 99212; G0463

== ENCOUNTER 2024-03-28 08:14 | Outpatient (RCR) | payer BC, SELFPAY ==
[2024-03-24 00:49] VITALS: BP 124/87; PULSE 78; RESP 18; TEMP 36.8; BMI 21.6
[2024-03-28 08:29] VITALS: BP 125/80; PULSE 77; RESP 18; BMI 21.6
--- NOTE | 2024-03-28 11:10 | PCM.WC.PN ---
History of Present Illness Date of Service: 03/28/24 Chief Complaint: Follow-up on a chin wound History of Wound: 38-year-old black female who in December developed again another pimple on her chin in the same exact spot that opened up into a wound like last year. Biopsy last year showed cold sore was started on Valtrex by her family doctor in December and then [employer] [place] restarted in January she still states it is there and will not go away right now it has a small scab that we are can remove and culture the area. Currently she is on Levaquin without a culture from the I&D Dr. Progress of Wound: So the chin is healed this week. We discussed that I think it is a lot of to do with the medications she is taking for her autoimmune disorders a lot of them have side effects of skin disorder. I can only suggest that she stay on top of it and keep it clean and dry her cultures came back negative this time she is healed and looks pretty good and she has the product to put on it if it starts to open again and this will probably be an ongoing problem until she is not either taking the medications or or not. Subjective Subjective Patient understands and is agreeable with plan Objective Data Objective Data Patient is healed and will follow-up as needed discharge from the wound center Vital Signs: Vital Signs Temp Pulse Resp BP O2 Del Method 98.2 F 77 18 125/80 H Room Air 03/24/24 00:49 03/28/24 08:29 03/28/24 08:29 03/28/24 08:29 03/28/24 08:29 Oxygen Delivery Method Room Air Weight: 138 lb Body Mass Index (BMI) 21.6 Physical Exam Const oriented x3 General Appearance: cooperative Exam Limitations: no limitations HEENT normocephalic Head and Scalp: normal to inspection Face and Sinus: Negative for normal facial exam Eyes PERRL General Eye: normal appearance of both eyes Neck full ROM General: normal visual inspection Resp normal respiratory effort Effort and Inspection: able to speak in complete sentences Auscultation: clear to auscultation bilaterally Cardio regular rate and regular rhythm Palpation: normal PMI Rate: regular rate Rhythm: regular rhythm Back/Spine Cervical Spine: cervical ROM normal Skin Wound Narrative: Open wound right side of chin with on discolored skin patch Neuro oriented x3 Psych Appearance: grossly normal Speech: normal speech Thought Content: normal thought content Judgement: judgement good Debridement Note Debridement Note No debridement was completed: No debridement was completed today Post-Debridement Measurements and Additional Note: Post-Debridement Measurements/Treatment - Nurse 1 - General Ulcer Assessment Start: 03/28/24 08:29 Freq: Status: Active Protocol: SANDRITA Activity Type Activity Date Activity User E-sign Co-sign Detail Recorded Client Recorded Date Recorded By Document 03/28/24 08:29 Wound center 03/28/24 08:31 03/28/24 08:29 WC - Today's Visit Information Type of service Follow-up Visit (Physician/ANCHOR OPERATOR ) Arrival Mode Ambulatory Patient Identification Verified (Name & Yes ) Height and Weight Body Mass Index (BMI) 21.6 BMI Classification Normal Vital Signs Pulse Rate (60-100) 77 Pulse Location Monitor Respiratory Rate (12-18) 18 Respiratory rate source Observation Oxygen Delivery Method Room Air Blood Pressure (90/60-120/80) 125/80 H Blood Pressure Mean (mm Hg) 95 Source Monitor Position Sitting Blood Pressure Location Left Arm History Since Last Visit- (Skip if this is Patient's initial visit) Have you changed medications since your No last visit? Any new allergies or adverse reactions No Had a fall/change in ADL's that may No increase risk of falls Signs or symptoms of abuse and/or No neglect since last visit Have you been in the hospital since your No last visit? Has dressing in place as prescribed No Has compression in place as prescribed N/A Has offloadiing in place as prescribed N/A Experienced any changes in pain level or No management Left Footwear Regular Shoe Right Footwear Regular Shoe Pain Scale: 0-10 Numeric Is Patient Pain Free? Yes [facility] Nurse 1 - General Ulcer Measurement Start: 03/28/24 08:29 Freq: Status: Active Protocol: Activity Type Activity Date Activity User E-sign Co-sign Detail Recorded Client Recorded Date Recorded By Document 03/28/24 08:29 Wound center 03/28/24 08:31 03/28/24 08:29 Wound Center Nurse 1 #3 Chin -Current Size (cm) - Length 0.1 -Current Size (cm) - Width 0.1 -Current Size (cm) - Depth 0.1 -Total Square Cm 0.01 -Date of Last Picture (Recall this 03/28/24 field) -Texture (Ashlee-wound Skin Appearance) Assessed -Moisture (Ashlee-wound Skin Appearance) Assessed -Color (Ashlee-wound Skin Appearance) Assessed -Tenderness on Palpation (Ashlee-wound No Skin Appearance) -Foul Odor after Cleansing No -Wound Comment(s) appears unopened at this time - Nurse 2 - General Ulcer CM Notes Start: 03/28/24 08:29 Freq: Status: Active Protocol: Activity Type Activity Date Activity User E-sign Co-sign Detail Recorded Client Recorded Date Recorded By Document 03/28/24 08:44 [facility] [id number] 03/28/24 08:46 [facility] 03/28/24 08:44 Wound Center Nurse 2 -Post Debridement (cm) - Length 0 -Post Debridement (cm) - Width 0 -Post Debridement (cm) - Depth 0 -Total Square (Post) (cm) 0 -Area of Debridement (cm) - Length 0 -Area of Debridement (cm) - Width 0 -Total Square (Area) (cm) 0 -Tunneling No -Undermining/Tunneling No -Circular Undermining No -Wound/Ulcer Outcome Healed- Epithelialized Pain Scale: 0-10 Numeric Is Patient Pain Free? Yes - Nurse 3 - General Ulcer D/C NN Start: 03/28/24 08:29 Freq: Status: Active Protocol: Activity Type Activity Date Activity User E-sign Co-sign Detail Recorded Client Recorded Date Recorded By Document 03/28/24 08:47 [facility] [id number] 03/28/24 08:47 [facility] 03/28/24 08:47 Wound Care Center Nurse 3 #3 Chin -Primary Dressing Applied Promogran -Other Dressing apply if reopens. -Promogran 1 Pain Scale: 0-10 Numeric Is Patient Pain Free? Yes - Visit Discharge Discharge Condition Stable Ambulatory Status Ambulatory Transportation Private Auto Assessment/Plan Assessment/Plan (1) Nonhealing nonsurgical wound: CODE(S): T14.8XXA - Other injury of unspecified body region, initial encounter PLAN: Wound is healed patient will be discharged from the wound center and can follow-up only as needed. (2) Open wound of chin: CODE(S): S01.80XA - Unspecified open wound of other part of head, initial encounter QUALIFIERS: Encounter type: subsequent encounter Qualified Code(s): S01.80XD - Unspecified open wound of other part of head, subsequent encounter (3) Herpes simplex type 2 infection: CODE(S): B00.9 - Herpesviral infection, unspecified (4) Infected wound: CODE(S): T14.8XXA - Other injury of unspecified body region, initial encounter; L08.9 - Local infection of the skin and subcutaneous tissue, unspecified
== END 2024-03-28 11:42 | disposition home or self-care (01) ==
LOC: WC 08:14
PROVIDERS: PCP Family Medicine; Referring Provider Family Medicine; Visit Provider Nurse Practitioner
DX: T14.8XXA Other injury of unspecified body region, initial encounter (principal); B00.9 Herpesviral infection, unspecified; S01.80XD Unspecified open wound of other part of head, subsequent encounter; L08.9 Local infection of the skin and subcutaneous tissue, unspecified
CPT/HCPCS: 99212; 99213; G0463

== ENCOUNTER → 2024-03-28 | Outpatient (CLI) | payer BC, SELFPAY ==
[2024-03-28 13:49] LABS: Thyroid Stim Hormone (TSH) 3.55 uIU/mL (0.358-3.74)
[2024-03-29 04:08] LABS: Thyroid Peroxidase AB 11 IU/mL (0-34)
== END | disposition home or self-care (01) ==
LOC: BFHLAB 10:26
PROVIDERS: PCP Family Medicine; Referring Provider Family Medicine; Visit Provider Family Medicine
DX: R79.89 Other specified abnormal findings of blood chemistry (principal)
CPT/HCPCS: 36415; 84439; 84443; 86376

== ENCOUNTER → 2024-04-13 | Outpatient (CLI) | payer BC, SELFPAY ==
[2024-04-13 17:41] LABS: Absolute Lymphocyte Count 0.79 X10^3/uL (0.83-4.51); Absolute Neutrophil Count 2.2 X10^3/uL (2.0-7.7); Basophil# 0.02 X10^3/uL; Basophil% 0.6 % (0-1); Eosinophil# 0.05 X10^3/uL; Eosinophils% 1.4 % (0-5); Hematocrit 34.7 % (37-47); Hemoglobin 11.2 g/dL (12.0-15.0); Lymphocyte # 0.79 X10^3/ul (0.83-4.51); Lymphocyte % 22.7 % (19-41); Mean Corp Hgb Conc 32.3 g/dL (32-36); Mean Corpuscular Hgb 28.1 pg (27.0-32.0); Mean Platelet Vol. 10.6 fl (6.2-12.0); Monocyte# 0.37 X10^3/uL; Monocyte% 10.6 % (0-10); NRBC Flagged by Analyzer 0 % (0-5); Neutrophil # 2.24 X10^3/uL (2.7-7.7); Neutrophil % 64.4 % (47-70); Platelet Count 282 K/mm3 (150-450); RBC Distribution Width CV 15.2 % (11.6-14.6); Red Blood Count 3.99 M/mm3 (4.2-5.4); White Blood Count 3.5 K/mm3 (4.4-11.0)
[2024-04-13 17:49] LABS: Color, Urine Yellow (Yellow); Glucose, Dipstick Normal (Normal); Ketone-Dipstick Negative (Negative); Leukocyte Esterase-Dipstick 500 /ul (Negative); Nitrite-Dipstick Negative (Negative); Occult Blood-Urine 10 /ul (Negative); Protein-Dipstick 100 mg/dl (Negative); Specific Gravity, Urine 1.015 (1.002-1.030); Urine Bilirubin Dipstick Negative (Negative); Urine Clarity Sl. Cloudy (Clear); Urine Urobilinogen Normal (Normal)
[2024-04-13 18:17] LABS: Protein, Urine (Random) 148.2 mg/dL (<11.9); Protein:Creat Ratio 833 mg/g CRE (0-200)
[2024-04-13 18:34] LABS: ALB/GLOB Ratio 0.8 RATIO (0.9-2.4); AST(SGOT) 17 U/L (15-37); Alanine Aminotransfer ALT/SGPT 17 U/L (13-56); Albumin, Serum 3.5 g/dL (3.2-5.0); Alkaline Phosphatase 71 U/L (45-117); Anion Gap 9 (5-15); BUN 16 mg/dL (7-18); BUN/Creat Ratio 16.6 RATIO (10-20); Calcium,Total 9.1 mg/dL (8.5-10.1); Chloride 110 mmol/L (98-107); Creatinine, Serum 0.96 mg/dL (0.55-1.02); EST Glomerular Filtration Rate 69 mL/min (>60); Est Glom Filt Rate - Afr Amer 84 mL/min (>60); Globulin 4.3 g/dL (2.2-4.2); Glucose 84 mg/dL (74-106); Potassium 3.5 mmol/L (3.5-5.1); Protein, Total 7.8 g/dL (6.4-8.2); Sodium Level 140 mmol/L (136-145)
[2024-04-15 08:11] LABS: Complement C3 98 mg/dL (82-167)
[2024-04-16 14:08] LABS: Anti-dsDNA Ab 44 IU/mL (0-9)
== END | disposition home or self-care (01) ==
LOC: MTLAB 16:39
PROVIDERS: PCP Family Medicine; Referring Provider Internal Medicine Rheumatology; Visit Provider Internal Medicine Rheumatology
DX: M32.9 Systemic lupus erythematosus, unspecified (principal); Z79.52 Long term (current) use of systemic steroids
CPT/HCPCS: 36415; 80053; 81002; 82570; 84156; 85025; 86160; 86225

== ENCOUNTER 2024-05-02 09:57 | Outpatient (RCR) | payer BC, SELFPAY ==
[2024-05-02 10:18] VITALS: BP 161/99; PULSE 87; RESP 18; TEMP 36.1
--- NOTE | 2024-05-02 12:24 | PN.PCM_ITS ---
History of Present Illness Date of Service: 05/02/24 Chief Complaint: Follow-up on a chin wound History of Wound: 38-year-old black female states it reopened on 26 April and she had some of her medications to left so she has been using her Promogran on it since then she could be seen. The last culture showed a bacteria that we would see in acne. But she has history of positive viral culture when it was biopsied by Derm. Progress of Wound: Again she has some bleaching of the skin of square on her chin that has a cluster of pimples. We will roughed them up and get a culture. In the meantime we will start her on a medication that is a mixture of valacyclovir and steroids Xerese. Patient will apply it twice a day till I see her in 2 weeks. Subjective Subjective Patient is happy reculturing we will get back to her about the cultures and she will start the treatment and we will see what happens. Objective Data Objective Data Again a patch of bleach skin on her right chin with pimples that have developed in the center. Vital Signs: Vital Signs Temp Pulse Resp BP O2 Del Method 97 F L 87 18 161/99 H Room Air 05/02/24 10:18 05/02/24 10:18 05/02/24 10:18 05/02/24 10:18 05/02/24 10:18 Oxygen Delivery Method Room Air Physical Exam Const oriented x3 General Appearance: cooperative Exam Limitations: no limitations HEENT normocephalic Head and Scalp: normal to inspection Face and Sinus: Negative for normal facial exam Eyes PERRL General Eye: normal appearance of both eyes Neck full ROM General: normal visual inspection Resp normal respiratory effort Effort and Inspection: able to speak in complete sentences Auscultation: clear to auscultation bilaterally Cardio regular rate and regular rhythm Palpation: normal PMI Rate: regular rate Rhythm: regular rhythm Back/Spine Cervical Spine: cervical ROM normal Skin Wound Narrative: Open wound right side of chin with on discolored skin patch Neuro oriented x3 Psych Appearance: grossly normal Speech: normal speech Thought Content: normal thought content Judgement: judgement good Debridement Note Debridement Note Post-Debridement Measurements and Additional Note: Post-Debridement Measurements/Treatment KRYSTINA - Nurse 1 - General Ulcer Assessment Start: 05/02/24 10:18 Freq: Status: Active Protocol: SANDRITA Activity Type Activity Date Activity User E-sign Co-sign Detail Recorded Client Recorded Date Recorded By Document 05/02/24 10:18 [place] [id number] 05/02/24 10:25 [place] 05/02/24 10:18 - Today's Visit Information Type of service Follow-up Visit (Physician/[facility] ) Arrival Mode Ambulatory Patient Identification Verified (Name & Yes ) Safety Precautions Fall Prevention Vital Signs Temperature (97.8 F-99.1 F) 97 F L Temperature Source Temporal Pulse Rate (60-100) 87 Pulse Location Monitor Respiratory Rate (12-18) 18 Respiratory rate source Observation Oxygen Delivery Method Room Air Blood Pressure (90/60-120/80) 161/99 H Blood Pressure Mean (mm Hg) 119 Source Monitor Position Sitting Blood Pressure Location Left Arm History Since Last Visit- (Skip if this is Patient's initial visit) Has dressing in place as prescribed Yes Has compression in place as prescribed Yes Has offloadiing in place as prescribed Yes Experienced any changes in pain level or Yes management Left Footwear Regular Shoe Right Footwear Regular Shoe Pain Scale: 0-10 Numeric Is Patient Pain Free? Yes - Nurse 1 - General Ulcer Measurement Start: 05/02/24 10:18 Freq: Status: Active Protocol: Activity Type Activity Date Activity User E-sign Co-sign Detail Recorded Client Recorded Date Recorded By Document 05/02/24 10:18 [place] [id number] 05/02/24 10:25 [place] 05/02/24 10:18 Wound Center Nurse 1 #3 Chin -Current Size (cm) - Length 0.1 -Current Size (cm) - Width 0.1 -Current Size (cm) - Depth 0.1 -Total Square Cm 0.01 -Date of Last Picture (Recall this 05/02/24 field) -Photo Taken Yes -Tunneling No -Undermining/Tunneling No -Circular Undermining No -Exudate Amt None Present -Wound Margin Flat & Intact -Granulation Amt None Present (0 %) -Slough/Fibrin No -Necrosis Amt Large (67-100%) -Texture (Ashlee-wound Skin Appearance) Assessed -Moisture (Ashlee-wound Skin Appearance) Assessed -Color (Ashlee-wound Skin Appearance) Assessed -Temperature (Ashlee-wound Skin No Abnormality Appearance) (Pt Warm) -Tenderness on Palpation (Ashlee-wound No Skin Appearance) -Ulcer Cleansing Soap and Water -Foul Odor after Cleansing No -Anesthetic Used 5% Lidocaine Gel Lower Limb Edema Present NA WC - Nurse 2 - General Ulcer CM Notes Start: 05/02/24 10:18 Freq: Status: Active Protocol: Activity Type Activity Date Activity User E-sign Co-sign Detail Recorded Client Recorded Date Recorded By Document 05/02/24 10:51 [facility] [id number] 05/02/24 11:01 [facility] 05/02/24 10:51 Wound Center Nurse 2 #3 Chin -Time 10:56 -Correct Patient Yes -Correct Side, Site, Position Yes -Correct Procedure Yes -Procedure Performed Yes -Type of Procedure Debridement -Clinical Debridement Subcutaneous -Tissue Removed Subcutaneous -Post Debridement (cm) - Length 0.5 -Post Debridement (cm) - Width 0.5 -Post Debridement (cm) - Depth 0.1 -Total Square (Post) (cm) 0.25 -Area of Debridement (cm) - Length 0.5 -Area of Debridement (cm) - Width 0.5 -Total Square (Area) (cm) 0.25 -Tunneling No -Undermining/Tunneling No -Circular Undermining No -Wound/Ulcer Outcome Not Healed -Ulcer Cleansing Rinsed/ Irrigated with Saline -Foul Odor after Cleansing No -Bleeding Controlled with NA -Treatment Response Procedure Tolerated Well -Offloading No -Debridement - Subq, 1st 20sq cm Yes Pain Scale: 0-10 Numeric Is Patient Pain Free? Yes - Nurse 3 - General Ulcer D/C NN Start: 05/02/24 10:18 Freq: Status: Active Protocol: Activity Type Activity Date Activity User E-sign Co-sign Detail Recorded Client Recorded Date Recorded By Document 05/02/24 11:18 [facility] [id number] 05/02/24 11:19 [facility] 05/02/24 11:18 Wound Care Center Nurse 3 #3 Chin -Ulcer Cleansing Rinsed/ Irrigated with Saline -Foul Odor after Cleansing No -Primary Dressing Covered/Secured with Dry Gauze, Secured with Tape Treatment Response Procedure Tolerated Well Pain Scale: 0-10 Numeric Is Patient Pain Free? Yes WC - Visit Discharge Discharge Condition Stable Ambulatory Status Ambulatory Transportation Private Auto Assessment/Plan Assessment/Plan (1) Nonhealing nonsurgical wound: CODE(S): T14.8XXA - Other injury of unspecified body region, initial encounter (2) Open wound of chin: CODE(S): S01.80XA - Unspecified open wound of other part of head, initial encounter QUALIFIERS: Encounter type: subsequent encounter Qualified Code(s): S01.80XD - Unspecified open wound of other part of head, subsequent encounter PLAN: Cultures obtained and patient is started on Xerese to be applied 2 times a day till seen in 2 weeks Patient will be notified of culture results Follow-up sooner if needed otherwise follow-up in 2 weeks (3) Herpes simplex type 2 infection: CODE(S): B00.9 - Herpesviral infection, unspecified (4) Infected wound: CODE(S): T14.8XXA - Other injury of unspecified body region, initial encounter; L08.9 - Local infection of the skin and subcutaneous tissue, unspecified
--- NOTE | 2024-05-03 09:02 | WC ---
PHOTO 05/02/2024 CHIN
== END 2024-05-23 23:59 | disposition home or self-care (01) ==
LOC: WC 09:57
PROVIDERS: PCP Family Medicine; Referring Provider Nurse Practitioner; Visit Provider Nurse Practitioner
DX: T14.8XXA Other injury of unspecified body region, initial encounter (principal); S01.80XD Unspecified open wound of other part of head, subsequent encounter; B00.9 Herpesviral infection, unspecified; L08.9 Local infection of the skin and subcutaneous tissue, unspecified
CPT/HCPCS: 11042; 87070; 87075; 87205; 99213; G0463

== ENCOUNTER 2024-07-04 08:39 | Outpatient (RCR) | payer BC, SELFPAY ==
[2024-05-24 00:51] VITALS: BP 161/99; PULSE 87; RESP 18; TEMP 36.1
[2024-07-04 08:45] VITALS: BP 115/84; PULSE 87; RESP 18; TEMP 36.2
--- NOTE | 2024-07-04 10:03 | PCM.WC.PN ---
History of Present Illness Date of Service: 07/04/24 Chief Complaint: Follow-up on a chin wound History of Wound: 38-year-old black female states it reopened on 26 April and she had some of her medications to left so she has been using her Promogran on it since then she could be seen. The last culture showed a bacteria that we would see in acne. But she has history of positive viral culture when it was biopsied by Derm. Progress of Wound: So the last time she was seen she was put on a new medication is a combination of valacyclovir and steroid cream low-dose and a topical cream. Her insurance company refused to pay for it so she has been using a low-dose steroid cream which has faded it but she still gets these 2 dots that keep showing up which I think is the herpes side of it. So I ordered her some acyclovir cream that she can put on when the pimples show 6-7 times a day otherwise maintenances twice a day along with her low dose steroid cream [id number] twice a day. And see if that works for her face. Subjective Subjective Patient is agreeable to plan and is happy with the outcome so far Objective Data Objective Data Will continue to follow her as needed she does not need to come in monthly or weekly Vital Signs: Vital Signs Temp Pulse Resp BP 97.2 F L 87 18 115/84 H 07/04/24 08:45 07/04/24 08:45 07/04/24 08:45 07/04/24 08:45 Physical Exam Const oriented x3 General Appearance: cooperative Exam Limitations: no limitations HEENT normocephalic Head and Scalp: normal to inspection Face and Sinus: Negative for normal facial exam Eyes PERRL General Eye: normal appearance of both eyes Neck full ROM General: normal visual inspection Resp normal respiratory effort Effort and Inspection: able to speak in complete sentences Auscultation: clear to auscultation bilaterally Cardio regular rate and regular rhythm Palpation: normal PMI Rate: regular rate Rhythm: regular rhythm Back/Spine Cervical Spine: cervical ROM normal Skin Wound Narrative: Open wound right side of chin with on discolored skin patch Neuro oriented x3 Psych Appearance: grossly normal Speech: normal speech Thought Content: normal thought content Judgement: judgement good Debridement Note Debridement Note No debridement was completed: No debridement was completed today Post-Debridement Measurements and Additional Note: Post-Debridement Measurements/Treatment WC - Nurse 1 - General Ulcer Assessment Start: 07/04/24 08:45 Freq: Status: Active Protocol: SANDRITA Activity Type Activity Date Activity User E-sign Co-sign Detail Recorded Client Recorded Date Recorded By Document 07/04/24 08:45 RADU [id number] 07/04/24 08:48 DL 07/04/24 08:45 WC - Today's Visit Information 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 of service 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 Any new allergies or adverse reactions No Had a fall/change in ADL's that may No increase risk of falls Signs or symptoms of abuse and/or No neglect since last visit Have you been in the hospital since your No last visit? Has dressing in place as prescribed Yes Has compression in place as prescribed N/A Has offloadiing in place as prescribed N/A Experienced any changes in pain level or No management Pain Scale: 0-10 Numeric Is Patient Pain Free? Yes KRYSTINA - Nurse 1 - General Ulcer Measurement Start: 07/04/24 08:45 Freq: Status: Active Protocol: Activity Type Activity Date Activity User E-sign Co-sign Detail Recorded Client Recorded Date Recorded By Document 07/04/24 08:45 RADU [id number] 07/04/24 08:48 DL 07/04/24 08:45 Wound Center Nurse 1 #3 Chin -Current Size (cm) - Length 0.1 -Current Size (cm) - Width 0.1 -Current Size (cm) - Depth 0.1 -Total Square Cm 0.01 -Photo Taken Yes -Exudate Amt None Present -Wound Margin Flat & Intact -Granulation Amt Large (67-100%) -Granulation Quality [place] -Necrosis Amt None Present (0 %) -Structure Exposed N/A -Texture (Ashlee-wound Skin Appearance) Scarring -Moisture (Ashlee-wound Skin Appearance) No Abnormality -Color (Ashlee-wound Skin Appearance) No Abnormality -Temperature (Ashlee-wound Skin No Abnormality Appearance) (Pt Warm) -Tenderness on Palpation (Ashlee-wound No Skin Appearance) -Ulcer Cleansing Rinsed/ Irrigated with Saline -Foul Odor after Cleansing No WC - Nurse 2 - General Ulcer CM Notes Start: 07/04/24 08:45 Freq: Status: Active Protocol: Activity Type Activity Date Activity User E-sign Co-sign Detail Recorded Client Recorded Date Recorded By Document 07/04/24 09:01 [facility] [id number] 07/04/24 09:06 [facility] 07/04/24 09:01 Wound Center Nurse 2 -Time 09:02 -Post Debridement (cm) - Length 0.1 -Post Debridement (cm) - Width 0.1 -Post Debridement (cm) - Depth 0.1 -Total Square (Post) (cm) 0.01 -Area of Debridement (cm) - Length 0.1 -Area of Debridement (cm) - Width 0.1 -Total Square (Area) (cm) 0.01 -Wound/Ulcer Outcome Not Healed -Bleeding Controlled with NA Pain Scale: 0-10 Numeric Is Patient Pain Free? Yes Assessment/Plan Assessment/Plan (1) Nonhealing nonsurgical wound: CODE(S): T14.8XXA - Other injury of unspecified body region, initial encounter (2) Open wound of chin: CODE(S): S01.80XA - Unspecified open wound of other part of head, initial encounter QUALIFIERS: Encounter type: subsequent encounter Qualified Code(s): S01.80XD - Unspecified open wound of other part of head, subsequent encounter PLAN: patient had been started on Xerese to be applied 2 times a day, but her insurance refused to pay for it. So she has been using just a low-dose steroid cream to the area and has had good results. We will add in a desciclovir cream to use on top of the steroid cream twice a day for maintenance and 6-7 times a day when she is in a eruption. Patient can follow-up as needed otherwise she has not needed show. (3) Herpes simplex type 2 infection: CODE(S): B00.9 - Herpesviral infection, unspecified (4) Infected wound: CODE(S): T14.8XXA - Other injury of unspecified body region, initial encounter; L08.9 - Local infection of the skin and subcutaneous tissue, unspecified
== END 2024-07-23 23:59 | disposition home or self-care (01) ==
LOC: WC 08:39
PROVIDERS: PCP Family Medicine; Referring Provider Nurse Practitioner; Visit Provider Nurse Practitioner
DX: T14.8XXA Other injury of unspecified body region, initial encounter (principal); B00.9 Herpesviral infection, unspecified; L08.9 Local infection of the skin and subcutaneous tissue, unspecified; S01.80XD Unspecified open wound of other part of head, subsequent encounter
CPT/HCPCS: 99213; G0463

== ENCOUNTER → 2024-07-19 | Outpatient (CLI) | payer BC, SELFPAY ==
[2024-07-19 17:29] LABS: Absolute Lymphocyte Count 0.72 X10^3/uL (0.83-4.51); Absolute Neutrophil Count 1.9 X10^3/uL (2.0-7.7); Basophil# 0.01 X10^3/uL; Basophil% 0.3 % (0-1); Eosinophil# 0.04 X10^3/uL; Eosinophils% 1.3 % (0-5); Hematocrit 38.5 % (37-47); Hemoglobin 12.2 g/dL (12.0-15.0); Lymphocyte # 0.72 X10^3/ul (0.83-4.51); Lymphocyte % 23.7 % (19-41); Mean Corp Hgb Conc 31.7 g/dL (32-36); Mean Corpuscular Hgb 28.4 pg (27.0-32.0); Mean Corpuscular Volume 89.7 fL (81-99); Mean Platelet Vol. 12.2 fl (6.2-12.0); Monocyte# 0.32 X10^3/uL; Monocyte% 10.5 % (0-10); NRBC Flagged by Analyzer 0 % (0-5); Neutrophil # 1.94 X10^3/uL (2.7-7.7); Neutrophil % 63.9 % (47-70); Platelet Count 205 K/mm3 (150-450); RBC Distribution Width CV 15.2 % (11.6-14.6); Red Blood Count 4.29 M/mm3 (4.2-5.4)
[2024-07-19 17:35] LABS: Color, Urine Yellow (Yellow); Glucose, Dipstick Normal (Normal); Ketone-Dipstick Negative (Negative); Leukocyte Esterase-Dipstick 500 /ul (Negative); Nitrite-Dipstick Positive (Negative); Occult Blood-Urine 250 /ul (Negative); Protein-Dipstick 100 mg/dl (Negative); Specific Gravity, Urine 1.015 (1.002-1.030); Urine Bilirubin Dipstick Negative (Negative); Urine Clarity Sl. Cloudy (Clear); Urine Urobilinogen Normal (Normal)
[2024-07-19 17:48] LABS: Protein, Urine (Random) 74.2 mg/dL (<11.9); Protein:Creat Ratio 1191 mg/g CRE (0-200)
[2024-07-19 20:31] LABS: AST(SGOT) 13 U/L (15-37); Alanine Aminotransfer ALT/SGPT 9 U/L (13-56); Albumin, Serum 3.4 g/dL (3.2-5.0); Alkaline Phosphatase 68 U/L (45-117); Anion Gap 8 (5-15); BUN 13 mg/dL (7-18); BUN/Creat Ratio 12.7 RATIO (10-20); Calcium,Total 8.2 mg/dL (8.5-10.1); Chloride 108 mmol/L (98-107); Creatinine, Serum 1.02 mg/dL (0.55-1.02); EST Glomerular Filtration Rate 65 mL/min (>60); Est Glom Filt Rate - Afr Amer 78 mL/min (>60); Ferritin 195 ng/mL (8-252); Globulin 3.3 g/dL (2.2-4.2); Glucose 109 mg/dL (74-106); Iron 74 ug/dL (50-170); Iron Binding Capacity,Total 198 ug/dL (250-450); PERCENT IRON SATURATION 37.4 % (15.0-55.0); Phosphorus 3.1 mg/dL (2.5-4.9); Protein, Total 6.7 g/dL (6.4-8.2); Sodium Level 138 mmol/L (136-145)
[2024-07-21 11:09] LABS: Complement C3 101 mg/dL (82-167)
[2024-07-23 13:08] LABS: Anti-dsDNA Ab 44 IU/mL (0-9)
== END | disposition home or self-care (01) ==
PROVIDERS: PCP Family Medicine; Referring Provider Internal Medicine Nephrology; Visit Provider Internal Medicine Nephrology
DX: M32.14 Glomerular disease in systemic lupus erythematosus (principal); R80.9 Proteinuria, unspecified; D50.9 Iron deficiency anemia, unspecified; Z79.52 Long term (current) use of systemic steroids; I10 Essential (primary) hypertension
CPT/HCPCS: 36415; 80053; 81002; 82570; 82728; 83540; 83550; 84100; 84156; 85025; 86160; 86225

== ENCOUNTER → 2024-08-17 | Outpatient (CLI) | payer BC, SELFPAY ==
--- OUTSIDE RECORDS SUMMARY | 2024-05-28 22:14 | XMS RPT_ITS ---
Patient Summarization (C-CDA 2.1 CCD) Created on: May 28, 2024 MS. RUTH TERRANCE Gabi : 1985 Sex: Female Author Organization Sample organization Care Team Providers Care Head Paper Tester Name Role Phone Ale Arroyo DO Primary Care Provider JOEY DE OLIVEIRA Attending Unavailable LELO WOODWARD Referring Unavailable ALE ARROYO Primary Care Unavailable LELO WOODWARD Attending Unavailable ALE ARROYO Primary Care Unavailable Encounters Encounter Date Encounter Type Care Provider Facility Start: 12-28-2023 End: 12-28-2023 ambulatory JOEY DE OLIVEIRA Facility:[facility] Start: 12-28-2023 End: 12-28-2023 Patient encounter procedure Joey De Oliveira MD Work Phone: OB/Gynecology Comment on above: Cervical high risk h uman papillomavirus (HPV) DNA test positive (Primary Dx); Papanicolaou smear of vagina with low grade squamous intraepithelial lesion (LGSIL) Start: 10-26-2023 End: 10-26-2023 ambulatory LELO WOODWARD Facility:[facility] Immunizations Immunization Date Immunization Notes Care Provider Fa melecio 08-27-2022 influenza, injectabl e, quadrivalent, preservative free Joey De Oliveira MD Work Phone: [facility] Work Phone: 08-27-2022 influenza virus vacc ine, unspecified formulation Joey De Oliveira MD Work Phone: [facility] 07-14-2022 Human Papillomavirus 9-valent vaccine Joey De Oliveira MD Work Phone: [facility] Work Phone: 04-23-2021 hepatitis B vaccine, adult dosage Joey De Oliveira MD Work Phone: [facility] Work Phone: 04-23-2021 Human Papillomavirus 9-valent vaccine Joey De Oliveira MD Work Phone: [facility] Work Phone: 04-23-2021 tetanus toxoid, redu jairo diphtheria toxoid, and acellular pertussis vaccine, adsorbed Joey De Oliveira MD Work Phone: [facility] Work Phone: 11-05-2014 influenza, seasonal, injectable, preservative free Joey De Oliveira MD Work Phone: [facility] Work Phone: Medications Current Medications Medication Drug Class(es) Dates Sig (Normalized) Sig (Original) valACYclovir 1000 mg oral tablet (1 source) Herpesvirus Nucleoside Analog DNA Polymerase Inhibitor, Herpes Simplex Virus Nucleoside Analog DNA Polymerase Inhibitor, Herpes Zoster Virus Nucleoside Analog DNA Polymerase Inhibitor Start: 10-26-2023 End: 10-25-2024 take 1 tablet by mouth once daily valACYclovir (VALTREX) 1 gram tablet Take 1 tablet by mouth once daily. FOR 10 DAYS. 30 tablet 11 10/26/2023 10/25/2024 Active Comment on above: Take 1 tablet by cherry th once daily. FOR 10 DAYS. Completed/Discontinued Medications Medication Drug Class(es) Dates Sig (Normalized) Sig (Original) 12 hr acetaZOLAMIDE 500 mg extended release oral capsule (1 source) Carbonic Anhydrase Inhibitor Start: 7 take 1 capsule by mouth once daily acetaZOLAMIDE SR (DIAMOX SEQUELS) 500 mg capsule TAKE ONE CAPSULE BY MOUTH ONCE DAILY 180 capsule 0 03/24/2017 Active Comment on above: TAKE ONE CAPSULE BY MOUTH ONCE DAILY hydroxychloroquine sulfate 200 mg oral tablet (1 source) Antimalarial, Antirheumatic Agent Start: 6 take 1 tablet by mouth twice daily hydroxychloroquine (PLAQUENIL) 200 mg tablet Indications: Systemic lupus erythematosus (HCC) Take 1 tablet by mouth twice daily. 60 tablet 0 06/21/2016 Active Comment on above: Take 1 tablet by cherry th twice daily. lisinopril 10 mg oral tablet (1 source) Angiotensin Converting Enzyme Inhibitor Start: 6 take 1 tablet by mouth once daily lisinopril (ZESTRIL, PRINIVIL) 10 mg tablet Indications: Secondary hypertension , Proteinuria Take 1 tablet by mouth once daily. 30 tablet 3 05/20/2016 Active Comment on above: Take 1 tablet by cherry th once daily. mycophenolate mofetil 500 mg oral tablet (1 source) Start: 4 CELLCEPT 500 mg tablet predniSONE 2.5 mg oral tablet (1 source) Start: 6 take 3 tablets by mouth once daily predniSONE (DELTASONE) 2.5 mg tablet Indications: SLE (systemic lupus erythematosus) (HCC) Take 3 tablets by mouth once daily. 90 tablet 3 03/11/2016 Active Comment on above: Take 3 tablets by mo ut once daily. Payers Date Payer Category Payer Unknown [employer] PPO OOS [id number] 2011-Present [phone] [address] [place] [address] PPO [id number] 2011 Unknown [id number] Plan of Treatment Date Care Activity Detail Author Start: 04-23-2031 Urine microalbumin profile DTaP,Tdap,Td Vaccine (2 - Td or Tdap) [facility] Start: 10-26-2028 Screening for malignant neoplasm of cervix [facility] Start: 10-24-2023 Depression Assessment Depression Assessment [facility] Start: 06-24-2023 Influenza vaccination Influenza Vaccine (#1) [facility] Start: 10-06-2022 HPV Vaccine (3 - 3-dose SCDM series) HPV Vaccine (3 - 3-dose SCDM series) [facility] Start: 11-18-2021 Covid-19 Vaccine (3 - Moderna risk series) Covid-19 Vaccine (3 - Moderna risk series) [facility] Start: 05-21-2021 Hepatitis B Vaccine (2 of 3 - 19+ 3-dose series) Hepatitis B Vaccine (2 of 3 - 19+ 3-dose series) [facility] Start: 2006 Shingrix Vaccine (1 of 2) Shingrix Vaccine (1 of 2) [facility] Start: 2005 Hepatitis C screening Hepatitis C Screening [facility] Start: 1993 Pneumococcal vaccination Pneumococcal Vaccine (1 of 2 - PCV) [facility] SURGICAL PATHOLOGY SURGICAL PATH OLOGY Lab Routine Cervical high risk human papillomavirus (HPV) DNA test positive Papanicolaou smear of vagina with low grade squamous intraepithelial lesion (LGSIL) 12/28/2023 4:01 PM EST [facility] Work Phone: Problems Active Problems Problem Classification Problem Date Documented Date Episodic/Chronic Cancer of other female genital organs (2 sources) Low grade squamous intraepithelial lesion on vaginal Papanicolaou smear; Translations: [Low grade squamous intraepithelial lesion on cytologic smear of vagina (LGSIL)] Onset: 11-04-2023 12-28-2023 Episodic Sexually transmitted infections (not HIV or hepatitis) (1 source) Human papillomavirus deoxyribonucleic acid test positive, high risk on cervical specimen; Translations: [Cervical high risk human papillomavirus (HPV) DNA test positive] 12-28-2023 Episodic Systemic lupus erythematosus and connective tissue disorders (1 source) Systemic lupus erythematosus; Translations: [Systemic lupus erythematosus, unspecified] Onset: 06-24-2011 Chronic Unclassified (1 source) SUMMARY Onset: 04-10-2011 Past or Other Problems Problem Classification Problem Date Documented Date Episodic/Chronic Acute and unspecified renal failure (1 source) Acute renal failure syndrome; Translations: [Acute kidney failure, unspecified] Onset: 04-12-2011 Episodic Deficiency and other anemia (1 source) Anemia; Translations: [Anemia, unspecified] Onset: 04-12-2011 10-19-2021 Episodic Immunizations and screening for infectious disease (1 source) Anti-nuclear factor positive; Translations: [Other specified abnormal immunological findings in serum] Onset: 04-10-2011 Episodic Nonspecific chest pain (1 source) Chest pain; Translations: [Chest pain, unspecified] Onset: 05-09-2013 10-19-2021 Episodic Other connective tissue disease (1 source) Fibromyalgia; Translations: [Fibromyalgia] Onset: 05-11-2013 Episodic Ashlee-; endo-; and myocarditis; cardiomyopathy (except that caused by tuberculosis or sexually transmitted disease) (1 source) Pericardial effusion; Translations: [Pericardial effusion] Onset: 04-10-2011 Episodic Pleurisy; pneumothorax; pulmonary collapse (1 source) Pleural effusion; Translations: [Pleural effusion, not elsewhere classified] Onset: 04-10-2011 Episodic Procedures Date Procedure Procedure Detail Performing Clinician Start: 12-28-2023 UA DIP,URINE HCG (POC) Joey De Oliveira MD Work Phone: Results Test Name Value Interpretation Reference Range Facility CNOVon 12-28-2023 CNOV Office Visit (OBGYWM ) RUTHTERRANCE ([id number]) 1985 F Date Time Provider Department 12/28/23 3:20 PM JOEY DE OLIVEIRA OBGYWM During your visit today, we recorded the following information about you: Blood pressure Weight Last Period 122/90 62.6 kg 12/15/23 Joey De Oliveira MD 12/28/2023 3:59 PM Signed Terrance is a 38 year old who presents today for a colposcopy. The patient's last pap smear was LGSIL and Positive HPV from October 2023. Patient has a history of abnormal pap: Yes. The patient has had prior treatment: none. test: negative UNIVERSAL PROTOCOL / SAFETY CHECKLIST Procedure to be Performed: colp w/ biopsies Sign In: A Moment of CARE was completed. Personnel directly involved with the procedure wore the appropriate PPE (Personal Protective Equipment). Patient/Surrogate Stated/Verified: PATIENT VERIFIED(optional for EMERGENT procedures): Patient name, Date of , Relevant allergies, and The intended procedure Time Out Communication: Intended patient and procedure match the source documents. Consent documented and matches the intended procedure. Relevant labs, photos, and/or imaging studies have been reviewed. No implant(s) inserted. Sign Out: SIGN OUT (optional for EMERGENT procedures): All specimen containers correctly labeled. All instruments, equipment, possible retained foreign bodies accounted for. Post-procedure follow-up management communicated and Plan of Care Visit completed when applicable. Joey De Oliveira M.D. PROCEDURE: EXTERNAL GENITALIA: Normal in appearance without lesions, small inclusion cyst 3 mm right labium minorum VAGINA: Normal in appearance without lesions CERVIX: Speculum placed in vagina and excellent visualization of cervix achieved. Cervix swabbed x 3 with 3% acetic acid solution. Cervix grossly normal. Squamocolumnar junction visualized. acetowhite changes noted mild at 8 and 4 oclock, punctations noted -none, mosaicism noted -none, and atypical vasculature noted -none. IUD strings noted BIOPSY: Done at 4:00 and 9:00 ECC: not done HEMOSTASIS: Obtained with silver nitrate Procedure Summary: Patient tolerated procedure well and colposcopy was adequate. ASSESSMENT: +HRHPV, LSIL pap PLAN: Specimens labeled and sent to Pathology. Will notify patient of results in 1-2 weeks. Post-procedure instructions reviewed and written material given to the patient. had 2/3 gardasil series, if interested in 3rd one notify office If indicated, lesion by colpo is amenable to office LEEP as lesion is small. MD Pallavi Jett Vt, Jo Ann 12/28/2023 3:20 PM Signed YOUR RECOVERY It may take a few weeks for your cervix to heal. While your cervix heals, you may have: - Vaginal bleeding (less than a normal menstrual period) - Mild cramping - A brown-black vaginal discharge (similar to coffee grounds) which is a result of the paste used to help stop bleeding from the procedure Do NOT put anything in the vagina for 1 week after your colposcopy if your doctor does a biopsy of your cervix. This includes sex, tampons, and douches. If you have any discomfort, you may take an over the counter pain medication (motrin, advil, ibuprofen, tylenol, etc). If this does not relieve your discomfort, contact your doctor's office for a prescription strength pain medication. It is okay to wear a sanitary pad until the discharge and spotting stops. RISKS Although problems seldom occur with colposcopy, there can be some complications. You may feel faint during and shortly after the procedure as well as have some bleeding and vaginal discharge after the procedure. There is also a risk of infection after the procedure. These complications are rare and can be easily treated. You should contact you doctor is you have any of the following: - Heavy bleeding (more than your normal period) - Bleeding with clots - Severe abdominal pain - Fever (more than 100.4F) - Foul smelling vaginal discharge RESULTS If a biopsy was taken, we will have the results of your biopsy in 1-2 weeks. If you do not hear the results of your biopsy after 2 weeks, please contact your physicians office for the results. Depending on the biopsy results, your doctor will determine your follow up plan which may include further testing or treatments. STAYING HEALTHY After the procedure, you will need to see your doctor for follow up visits during the year. At these visits your doctor will check the health of your cervix with a pap smear. After three normal pap smears, your doctor will allow you to return to having exams once a year. If you have another abnormal pap smear, you may need closer follow up for longer or you may need additional treatment. By making a few lifestyle changes after the procedure, you can help protect the health of your cervix: - Have reg (more content not included)... Normal [facility] SURGICAL PATHOLOGYon 024 CASE REPORT Normal [facility] Comment on above: Order Comment: Speci men Type: TISSUE SPECIMEN Ordering Facility: [facility] Address: [address] [place] [address] Result Comment: Surg [facility] Pathology Report Case: [id number] Authorizing Provider: Joey De Oliveira MD Collected: 12/28/2023 04:01 PM Ordering Location: OB/Gynecology Received: 12/28/2023 04:24 PM Pathologist: Aliya Cartwright MD Specimen: CERVIX BIOPSY, 4 and 9 oclock Performed By: #### S #### [facility] CLIA [id number] [address] [place] [address] [place] CLINICAL HISTORY Lsil hpv pos Normal [facility] Comment on above: Order Comment: Speci men Type: TISSUE SPECIMEN Ordering Facility: [facility] Address: [address] [place] [address] Performed By: #### S #### [facility] CLIA [id number] [address] [place] [address] [place] FINAL DIAGNOSIS Normal [facility] Comment on above: Order Comment: Speci men Type: TISSUE SPECIMEN Ordering Facility: [facility] Address: [address] [place] [address] Result Comment: A. C ervix, 4:00 and 9:00, biopsy: - Scant detached fragment of low grade squamous intraepithelial lesion (LSIL/ASHA 1), with superimposed acute inflammation and reactive changes - Background squamous mucosa with keratosis/parakeratosis (reactive changes) Performed By: #### S #### [facility] CLIA [id number] [address] [place] [address] [place] FINAL PERFORMING LAB Normal [facility] Comment on above: Order Comment: Speci men Type: TISSUE SPECIMEN Ordering Facility: [facility] Address: [address] [place] [address] Result Comment: Diag nostic interpretation performed at [facility], [address] [place] [address] CLIA# [id number] Oncology Coordinator: Roni Orellana M.D. Performed By: #### S #### [facility] CLIA [id number] [address] [place] [address] [place] GROSS DESCRIPTION Normal [facility] Comment on above: Order Comment: Speci men Type: TISSUE SPECIMEN Ordering Facility: [facility] Address: [address] [place] [address] Result Comment: A. C ERVIX BIOPSY Received in formalin are two pieces of lopez, soft tissue aggregating to 0.9 x 0.3 x 0.2 cm. Totally submitted in one cassette. SS December 28, 2023 11:31 PM Gross examination performed at [facility], [address] [place] [address] Performed By: #### S #### [facility] CLIA [id number] [address] [place] [address] [place] UA DIP,URINE HCG (POC)on Beta HCG ( test) Ql (U) Negative Negative [facility] Roundhouse Worker (POCT) Internal QC OK [facility] CNOVon 10-26-2023 CNOV Office Visit (OBGYWM ) TERRANCE MIRANDA ([id number]) 1985 F Date Time Provider Department 10/26/23 10:00 AM LELO WOODWARD OBGYWM During your visit today, we recorded the following information about you: Blood pressure Weight Height Last Period 120/76 58.9 kg 1.676 m 09/27/23 Lelo Woodward APRN.CNM 10/26/2023 5:21 PM Signed Terrance is a 38 year old No obstetric history on file. who presents for an annual gynecologic exam without complaints. Menses: cycles every 30 days and 3-5 days of flow. Contraception: Mirena since 2018 HPV vaccine: No Last Pap: September 2022, LGSIL with colposcopy completed HPV: September 2022 positive History of abnormal pap: Yes Last mammogram: never Sexually active: No Time with current partner: x 4 years, in [facility] Pain with intercourse: No Postcoital bleeding: No Exercise: 0 times a week Diet: regular Seatbelt use: Yes OB History No obstetric history on file. 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 SLE (systemic lupus erythematosus) ([facility]) PAST SURGICAL HISTORY Procedure Laterality Date BREAST SURGERY HX 11/25/2020 breast lift- dr ross INSERTION OF IUD 02/2018 mirena VAGINOSCOPY 10/2022 @ [facility] VULVAR BIOPSY (W NOTE) 03/19/2021 (condyloma),12/03/2021 (skin tag), 02/18/2022 (molluscum contagiosum) FAMILY HISTORY Problem Relation Age of Onset Diabetes Maternal Grandmother Diabetes Mother Cataract Mother Hypertension Father Cataract Father Glaucoma Father SOCIAL HISTORY Social History Tobacco Use Smoking status: Never Smokeless tobacco: Never Substance Use Topics Alcohol use: No Drug use: No REVIEW OF SYSTEMS Abdomen:Has regular sensations of gassiness with frequent diarrhea over past 6 months ever since treated on several antibiotics for skin infection which resolved 6 months ago. Denies constipation, abdominal pain, early satiation or bloating. Bladder: No dysuria, gross hematuria, urinary frequency, urinary urgency, or incontinence. Did have one UTI last year, but was asymptomatic. Was discovered in a routine urine check with rheumatology. Treated and resolved Breast: No breast lumps, nipple d/c, overlying skin changes, redness or skin retraction. Had Breast Lift 2020. Allergies and current medication updated:Yes EXAM: BP 120/76 Ht 5' 6 (1.68m) Wt 129 lb 12.8 oz (58.9kg) LMP 09/27/2023 BMI 20.96 kg/(m2). GENERAL: pleasant, female in no apparent distress HEENT: Normocephalic, atraumatic, mucus membranes moist, and no lesions NECK: Supple, full range of motion, no adenopathy, and thyroid normal DERMATOLOGY: Normal, without lesions, non-icteric, and non-hirsute BREAST: soft, non-tender, symmetric, no dominant mass, normal nipple-areolar complex, no lymphadenopathy, and no nipple discharge CHEST: Clear to auscultation, Normal inspiratory effort, Regular rate and rhythm, and No murmurs, clicks, rubs or gallops ABDOMEN: soft, non-tender, and no masses PELVIC: external genitalia normal, normal Bartholin's glands, urethra, Parchment's glands, no vulvar lesions, no cervical lesions, good vaginal support, physiologic discharge present, normal appearing perineal body and perianal region, Mirena strings visible. BIMANUAL: uterus normal size, shape and consistency, no adnexal masses, and non-tender RECTOVAGINAL: rectovaginal exam negative for any masses or nodularity. NEURO: alert and oriented x3,exam grossly non-focal EXTREMITIES: normal ASSESSMENT/PLAN: 1. Encounter for gynecological examination (general) (routine) with abnormal findings - ICD9: V72.31, ICD10: Z01.411 (primary diagnosis) - Completed pelvic and breast exam - Encouraged monthly BSE - Follow up for annual exam in one year. - PAP TEST - BACTERIAL VAGINOSIS NAAT - HÉCTOR/TRICHOMONAS NAAT - GONORRHEA/CHLAMYDIA NAAT 2. Screening for cervical cancer - ICD9: V76.2, ICD10: Z12.4 - Completed pelvic and breast exam - Encouraged monthly BSE - Follow up for annual exam in one year. - PAP TEST 3. Encounter for screening for human papillomavirus (HPV) - ICD9: V73.81, ICD10: Z11.51 - PAP TEST 4. Encounter for preconception consultation - ICD9: V26.49, ICD10: Z31.69 -Reviewed pre-conception guidelines including folic acid supplementation 5. Encounter for routine checking of intrauterine contraceptive device (IUD) - ICD9: V25.42, ICD10: Z30.431 6. HSV (herpes simplex (more content not included)... [facility] TERRANCE MIRANDA ([id number]) 1985 F Date Time Provider Department 10/26/23 LELO WOODWARD During your visit today, we recorded the following information about you: Lelo Woodward APRN.CNM 10/26/2023 12:26 PM Signed Patient seen today for annual exam. Needed suppression for HSV. Noted in chart taking valtrex but reviewed scanned documents and states Famciclovir, can patient please verify medication name and dosage and I can send her a refill. Thank you, CHILANGO Rodas Danielle, RN 10/26/2023 4:47 PM Signed Patient checked bottle, valtrex 1 GM. BRYSON Miller Jessica, APRN.CNM 10/26/2023 5:48 PM Signed Order signed. Lelo Woodward APRN.Mandi Balderrama RN 10/27/2023 8:12 AM Signed The following approved medication requests have been transmitted electronically. Requested Prescriptions Signed Prescriptions Disp Refills valACYclovir (VALTREX) 1 gram tablet 30 tablet 11 Sig: Take 1 tablet by mouth once daily. FOR 10 DAYS. Authorizing Provider: LELO WOODWARD Pharmacy Information Pharmacy [place] [address] Allergies As of Date: 10/26/2023 (No Known Allergies) Date Reviewed: 10/26/2023 Reviewed by: Julian Hemphill Cma - Fully Assessed Reason for Visit: Patient Question [7637] Medication Problem [65] Order(s):valACYclovir (VALTREX) 1 gram tabletTake 1 tablet by mouth once daily. FOR 10 DAYS.Disp: 30 tabletRfl: 11 Prescriptions as of 10/27/2023 - valACYclovir (VALTREX) 1 gram tablet Take 1 tablet by mouth once daily. FOR 10 DAYS. - acetaZOLAMIDE SR (DIAMOX SEQUELS) 500 mg capsule TAKE ONE CAPSULE BY MOUTH ONCE DAILY - hydroxychloroquine (PLAQUENIL) 200 mg tablet Take 1 tablet by mouth twice daily. - lisinopril (ZESTRIL, PRINIVIL) 10 mg tablet Take 1 tablet by mouth once daily. - predniSONE (DELTASONE) 2.5 mg tablet Take 3 tablets by mouth once daily. Meds Comments as of 04/08/2011: NO DATA AVAILABLE AT TIME OF ORDER VERIFICATION Problem List As Of Date 10/26/2023 Noted Resolved SUMMARY [V999.95] 04/10/2011 Pericardial effusion [I31.39] 04/10/2011 Pleural effusion [J90] 04/10/2011 Positive EDUARD (antinuclear antibody), SSA and el*04/10/2011 Fever [R50.9] 04/11/2011 SEBASTIÁN (acute kidney injury) ([facility]) [N17.9] 04/12/2011 Anemia [D64.9] 04/12/2011 SLE (systemic lupus erythematosus) ([facility]) [M32.9]06/24/2011 Shortness of breath and chest pain [R06.02] 05/09/2013 Chest pain [R07.9] 05/09/2013 Fibromyalgia [M79.7] 05/11/2013 Prescriptions ordered this encounter Disp Refills Start End VALACYCLOVIR 1 GRAM TABLET 30 t* 11 10/26/2023 10/25/2024 Route: ORAL Sig: Take 1 tablet by mouth once daily. FOR 10 DAYS. Medications Discontinued During This Encounter Prescriptions - valACYclovir (VALTREX) 1 gram tablet (Discontinued) Encounter Status:Closed by MANDI ROLON on 10/27/23 Normal [facility] HPV W/GENOTYPE THIN PREPon 0 10-26-2023 HPV 16 Ag Ql (Unsp spec) Negative Normal Negative for HPV DNA high risk type 16 by PCR [facility] Comment on above: Order Comment: Speci men Type: FLUID SPECIMEN Ordering Facility: [facility] Address: [address] [place] [address] Performed By: #### H PVHRT #### [facility] CLIA [id number] [address] [place] [address] [place] HPV 18 Ag Ql (Unsp spec) Negative Normal Negative for HPV DNA high risk type 18 by PCR [facility] Comment on above: Order Comment: Speci men Type: FLUID SPECIMEN Ordering Facility: [facility] Address: [address] [place] [address] Performed By: #### H PVHRT #### [facility] CLIA [id number] [address] [place] [address] [place] HPV 31+33+35+39+45+51+5 2+56+58+59+66+68 DNA JAMES+probe Ql (Cvx) Positive for one or more of the following HPV DNA high risk types:31,33,35,39,45,51 ,52,56,58,59,66,68 by PCR Abnormal Negative for HPV DNA high risk types: 31,33,35,39,45 ,51,52,56,58,5 9,66,68 by PCR. [facility] Comment on above: Order Comment: Speci men Type: FLUID SPECIMEN Ordering Facility: [facility] Address: [address] [place] [address] Performed By: #### H PVHRT #### [facility] CLIA [id number] [address] [place] [address] [place] PAP TESTon 10-26-2023 ADEQUACY Satisfactory for interpretation Normal [facility] Comment on above: Order Comment: Speci men Type: FLUID SPECIMEN Ordering Facility: [facility] Address: [address] [place] [address] Performed By: #### L [id number] #### [facility] CLIA [id number] [address] [place] [address] [place] CASE REPORT Normal [facility] Comment on above: Order Comment: Speci men Type: FLUID SPECIMEN Ordering Facility: [facility] Address: [address] [place] [address] Result Comment: Gyne cologic Cytology Report Case: [id number] Authorizing Provider: Lelo Woodward APRN.CNM Collected: 10/26/2023 10:52 AM Ordering Location: OB/Gynecology Received: 10/26/2023 11:56 AM First Screen: Rimma Matias, CT, ASCP Pathologist: Troy Osborne MD Specimen: Pap Test, ThinPrep, Cervix Performed By: #### L [id number] #### [facility] CLIA [id number] [address] [place], [place] [id number] [place] CLINICAL HISTORY, CYTOLOGY, STUDENT LIFE COORDINATOR Routine Exam Normal [facility] Comment on above: Order Comment: Speci men Type: FLUID SPECIMEN Ordering Facility: [facility] Address: [address] [place] [address] Performed By: #### L [id number] #### [facility] CLIA [id number] [address] [place] [address] [place] FINAL PERFORMING LAB Normal [facility] Comment on above: Order Comment: Speci men Type: FLUID SPECIMEN Ordering Facility: [facility] Address: [address] [place] [address] Result Comment: Tech nical component, seam steamer screening performed at [facility], [address] [place] [id number] CLIA# [id number] Diagnostic interpretation performed at [facility], [facility] [place] [id number] CLIA# [id number] Oncology Coordinator: Roni Orellana M.D. Performed By: #### L [id number] #### [facility] CLIA [id number] [address] [place] [address] [place] HPV REFLEX Yes HPV Normal [facility] Comment on above: Order Comment: Speci men Type: FLUID SPECIMEN Ordering Facility: [facility] Address: [address] [place] [address] Performed By: #### L [id number] #### [facility] CLIA [id number] [address] [place] [address] [place] INTERPRETATION, CYTOLOGY, STUDENT LIFE COORDINATOR Abnormal [facility] Comment on above: Order Comment: Speci men Type: FLUID SPECIMEN Ordering Facility: [facility] Address: [address] [place] [address] Result Comment: Low grade squamous intraepithelial lesion (LSIL). Performed By: #### L [id number] #### [facility] CLIA [id number] [address] [place] [address] [place] LMP 09/27/2023 Normal [facility] Comment on above: Order Comment: Speci men Type: FLUID SPECIMEN Ordering Facility: [facility] Address: [address] [place] [address] Performed By: #### L [id number] #### [facility] CLIA [id number] [address] [place] [address] [place] PAP DISCLAIMER COMMENT The Pap Smear is a screening test for cervical cancer. False negative results occur with all screening tests, emphasizing the need for rescreening at recommended intervals, and clinical correlation. Normal [facility] Comment on above: Order Comment: Speci men Type: FLUID SPECIMEN Ordering Facility: [facility] Address: [address] [place] [address] Performed By: #### L [id number] #### [facility] CLIA [id number] [address] [place] PAP GENERAL CATEGORIZATION Epithelial Cell Abnormality Normal [facility] Comment on above: Order Comment: Speci men Type: FLUID SPECIMEN Ordering Facility: [facility] Address: [address] [place] [address] Performed By: #### L [id number] #### [facility] CLIA [id number] [facility] [place] [address] [place] PAP EXAM PROCTOR COMMENT This specimen has be en analyzed by the ThinPrep Imaging System, an automated imaging and review system, which assists the laboratory in evaluating cells on ThinPrep Pap tests. Following automated imaging, selected castle from every slide are reviewed by a seam steamer. 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) [facility] Start: 10-26-2023 End: 12-28-2023 History of Social function [facility] Start: 10-26-2023 End: 12-28-2023 Tobacco use panel [facility] Start: 04-08-2011 Tobacco smoking stat us AKIS Never smoked tobacco [facility] Start: 04-08-2011 Tobacco use and exposure Smoke less tobacco non-user [facility] Start: 1987 Sex Assigned At Not on file C [facility] National Score (1-10 0), lower number is lower risk 72 [facility] Vital Signs Date Time Vital Sign Value Performing Clinician Faci lity 12-28-2023 15:30-0500 Body weight 62.6 kg Joey De Oliveira MD Work Phone: [facility] 12-28-2023 15:30-0500 Diastolic blood pressure 90 mm[Hg] Joey De Oliveira MD Work Phone: [facility] 12-28-2023 15:30-0500 Systolic blood pressure 122 mm[Hg] Joey De Oliveira MD Work Phone: [facility] Progress note 12-28-2023 Note Date & Type Note Facility 12-28-2023 Note HNO ID: [id number] Author: JOEY DE OLIVEIRA MD Service: ? Author Type: Physician Type: Progress Notes Filed: 12/28/2023 15:59 Note Text: Terrance is a 38 year old who presents today for a colposcopy. The patient's last pap smear was LGSIL and Positive HPV from October 2023. Patient has a history of abnormal pap: Yes. The patient has had prior treatment: none. test: negative UNIVERSAL PROTOCOL / SAFETY CHECKLIST Procedure to be Performed: colp w/ biopsies Sign In: A Moment of CARE was completed. Personnel directly involved with the procedure wore the appropriate PPE (Personal Protective Equipment). Patient/Surrogate Stated/Verified: PATIENT VERIFIED(optional for EMERGENT procedures): Patient name, Date of , Relevant allergies, and The intended procedure Time Out Communication: Intended patient and procedure match the source documents. Consent documented and matches the intended procedure. Relevant labs, photos, and/or imaging studies have been reviewed. No implant(s) inserted. Sign Out: SIGN OUT (optional for EMERGENT procedures): All specimen containers correctly labeled. All instruments, equipment, possible retained foreign bodies accounted for. Post-procedure follow-up management communicated and Plan of Care Visit completed when applicable. Joey De Oliveira M.D. PROCEDURE: EXTERNAL GENITALIA: Normal in appearance without lesions, small inclusion cyst 3 mm right labium minorum VAGINA: Normal in appearance without lesions CERVIX: Speculum placed in vagina and excellent visualization of cervix achieved. Cervix swabbed x 3 with 3% acetic acid solution. Cervix grossly normal. Squamocolumnar junction visualized. acetowhite changes noted mild at 8 and 4 oclock, punctations noted -none, mosaicism noted -none, and atypical vasculature noted -none. IUD strings noted BIOPSY: Done at 4:00 and 9:00 ECC: not done HEMOSTASIS: Obtained with silver nitrate Procedure Summary: Patient tolerated procedure well and colposcopy was adequate. ASSESSMENT: +HRHPV, LSIL pap PLAN: Specimens labeled and sent to Pathology. Will notify patient of results in 1-2 weeks. Post-procedure instructions reviewed and written material given to the patient. had 2/3 gardasil series, if interested in 3rd one notify office If indicated, lesion by colpo is amenable to office LEEP as lesion is small. Joey De Oliveira MD [facility] Instructions 12-28-2023 Patient Instructions Note Date & Type Note Facility 12-28-2023 Instructions Jo Ann Olivo MA - 12/28/2023 3:20 PM EST YOUR RECOVERY It may take a few weeks for your cervix to heal. While your cervix heals, you may have: - Vaginal bleeding (less than a normal menstrual period) - Mild cramping - A brown-black vaginal discharge (similar to coffee grounds) which is a result of the paste used to help stop bleeding from the procedure Do NOT put anything in the vagina for 1 week after your colposcopy if your doctor does a biopsy of your cervix. This includes sex, tampons, and douches. If you have any discomfort, you may take an over the counter pain medication (motrin, advil, ibuprofen, tylenol, etc). If this does not relieve your discomfort, contact your doctor's office for a prescription strength pain medication. It is okay to wear a sanitary pad until the discharge and spotting stops. RISKS Although problems seldom occur with colposcopy, there can be some complications. You may feel faint during and shortly after the procedure as well as have some bleeding and vaginal discharge after the procedure. There is also a risk of infection after the procedure. These complications are rare and can be easily treated. You should contact you doctor is you have any of the following: - Heavy bleeding (more than your normal period) - Bleeding with clots - Severe abdominal pain - Fever (more than 100.4F) - Foul smelling vaginal discharge RESULTS If a biopsy was taken, we will have the results of your biopsy in 1-2 weeks. If you do not hear the results of your biopsy after 2 weeks, please contact your physicians office for the results. Depending on the biopsy results, your doctor will determine your follow up plan which may include further testing or treatments. STAYING HEALTHY After the procedure, you will need to see your doctor for follow up visits during the year. At these visits your doctor will check the health of your cervix with a pap smear. After three normal pap smears, your doctor will allow you to return to having exams once a year. If you have another abnormal pap smear, you may need closer follow up for longer or you may need additional treatment. By making a few lifestyle changes after the procedure, you can help protect the health of your cervix: - Have regular pelvic exams and pap smears as ordered by your doctor. - Stop smoking as smoking increases your risk of developing a cancer of the cervix - If you have more than one sexual partner, limit your number of partners and use condoms to reduce your risks of STDs. If you have any additional questions, please contact your doctor's office. documented in this encounter [facility] History of Present illness Narrative 12-28-2023 Joey De Oliveira MD - 12/28/2023 3:16 PM EST Note Date & Type Note Facility 12-28-2023 History of Presen t illness Narrative Terrance is a 38 year old who presents today for a colposcopy. The patient's last pap smear was LGSIL and Positive HPV from October 2023. Patient has a history of abnormal pap: Yes. The patient has had prior treatment: none. test: negative UNIVERSAL PROTOCOL / SAFETY CHECKLIST Procedure to be Performed: colp w/ biopsies Sign In: A Moment of CARE was completed. Personnel directly involved with the procedure wore the appropriate PPE (Personal Protective Equipment). Patient/Surrogate Stated/Verified: PATIENT VERIFIED(optional for EMERGENT procedures): Patient name, Date of , Relevant allergies, and The intended procedure Time Out Communication: Intended patient and procedure match the source documents. Consent documented and matches the intended procedure. Relevant labs, photos, and/or imaging studies have been reviewed. No implant(s) inserted. Sign Out: SIGN OUT (optional for EMERGENT procedures): All specimen containers correctly labeled. All instruments, equipment, possible retained foreign bodies accounted for. Post-procedure follow-up management communicated and Plan of Care Visit completed when applicable. Joey De Oliveira M.D. PROCEDURE: EXTERNAL GENITALIA: Normal in appearance without lesions, small inclusion cyst 3 mm right labium minorum VAGINA: Normal in appearance without lesions CERVIX: Speculum placed in vagina and excellent visualization of cervix achieved. Cervix swabbed x 3 with 3% acetic acid solution. Cervix grossly normal. Squamocolumnar junction visualized. acetowhite changes noted mild at 8 and 4 oclock, punctations noted -none, mosaicism noted -none, and atypical vasculature noted -none. IUD strings noted BIOPSY: Done at 4:00 and 9:00 ECC: not done HEMOSTASIS: Obtained with silver nitrate Procedure Summary: Patient tolerated procedure well and colposcopy was adequate. ASSESSMENT: +HRHPV, LSIL pap PLAN: Specimens labeled and sent to Pathology. Will notify patient of results in 1-2 weeks. Post-procedure instructions reviewed and written material given to the patient. had 2/3 gardasil series, if interested in 3rd one notify office If indicated, lesion by colpo is amenable to office LEEP as lesion is small. Joey De Oliveira MD documented in this encounter [facility] Progress note 10-26-2023 Note Date & Type Note Facility 10-26-2023 Note HNO ID: [id number] Author: Lelo Woodward APRN.CNM Service: ? Author Type: Pulmonologist Intensivist Type: Progress Notes Filed: 10/26/2023 5:21 PM Note Text: Terrance is a 38 year old No obstetric history on file. who presents for an annual gynecologic exam without complaints. Menses: cycles every 30 days and 3-5 days of flow. Contraception: Mirena since 2018 HPV vaccine: No Last Pap: September 2022, LGSIL with colposcopy completed HPV: September 2022 positive History of abnormal pap: Yes Last mammogram: never Sexually active: No Time with current partner: x 4 years, in [facility], [place] Pain with intercourse: No Postcoital bleeding: No Exercise: 0 times a week Diet: regular Seatbelt use: Yes OB History No obstetric history on file. 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 SLE (systemic lupus erythematosus) (HCC) PAST SURGICAL HISTORY Procedure Laterality Date BREAST SURGERY HX 11/25/2020 breast lift- dr ross INSERTION OF IUD 02/2018 mirena VAGINOSCOPY 10/2022 @ [facility] VULVAR BIOPSY (W NOTE) 03/19/2021 (condyloma),12/03/2021 (skin tag), 02/18/2022 (molluscum contagiosum) FAMILY HISTORY Problem Relation Age of Onset Diabetes Maternal Grandmother Diabetes Mother Cataract Mother Hypertension Father Cataract Father Glaucoma Father SOCIAL HISTORY Social History Tobacco Use Smoking status: Never Smokeless tobacco: Never Substance Use Topics Alcohol use: No Drug use: No REVIEW OF SYSTEMS Abdomen:Has regular sensations of gassiness with frequent diarrhea over past 6 months ever since treated on several antibiotics for skin infection which resolved 6 months ago. Denies constipation, abdominal pain, early satiation or bloating. Bladder: No dysuria, gross hematuria, urinary frequency, urinary urgency, or incontinence. Did have one UTI last year, but was asymptomatic. Was discovered in a routine urine check with rheumatology. Treated and resolved Breast: No breast lumps, nipple d/c, overlying skin changes, redness or skin retraction. Had Breast Lift 2020. Allergies and current medication updated:Yes EXAM: BP 120/76 Ht 5' 6 (1.68m) Wt 129 lb 12.8 oz (58.9kg) LMP 09/27/2023 BMI 20.96 kg/(m2). GENERAL: pleasant, female in no apparent distress HEENT: Normocephalic, atraumatic, mucus membranes moist, and no lesions NECK: Supple, full range of motion, no adenopathy, and thyroid normal DERMATOLOGY: Normal, without lesions, non-icteric, and non-hirsute BREAST: soft, non-tender, symmetric, no dominant mass, normal nipple-areolar complex, no lymphadenopathy, and no nipple discharge CHEST: Clear to auscultation, Normal inspiratory effort, Regular rate and rhythm, and No murmurs, clicks, rubs or gallops ABDOMEN: soft, non-tender, and no masses PELVIC: external genitalia normal, normal Bartholin's glands, urethra, Parchment's glands, no vulvar lesions, no cervical lesions, good vaginal support, physiologic discharge present, normal appearing perineal body and perianal region, Mirena strings visible. BIMANUAL: uterus normal size, shape and consistency, no adnexal masses, and non-tender RECTOVAGINAL: rectovaginal exam negative for any masses or nodularity. NEURO: alert and oriented x3,exam grossly non-focal EXTREMITIES: normal ASSESSMENT/PLAN: 1. Encounter for gynecological examination (general) (routine) with abnormal findings - ICD9: V72.31, ICD10: Z01.411 (primary diagnosis) - Completed pelvic and breast exam - Encouraged monthly BSE - Follow up for annual exam in one year. - PAP TEST - BACTERIAL VAGINOSIS NAAT - HÉCTOR/TRICHOMONAS NAAT - GONORRHEA/CHLAMYDIA NAAT 2. Screening for cervical cancer - ICD9: V76.2, ICD10: Z12.4 - Completed pelvic and breast exam - Encouraged monthly BSE - Follow up for annual exam in one year. - PAP TEST 3. Encounter for screening for human papillomavirus (HPV) - ICD9: V73.81, ICD10: Z11.51 - PAP TEST 4. Encounter for preconception consultation - ICD9: V26.49, ICD10: Z31.69 -Reviewed pre-conception guidelines including folic acid supplementation 5. Encounter for routine checking of intrauterine contraceptive device (IUD) - ICD9: V25.42, ICD10: Z30.431 6. HSV (herpes simplex virus) infection - ICD9: 054.9, ICD10: B00.9 1) Health maintenance: Pap done with HPV. 2) Contraception: Mirena IUD since 2018. Desires in next 2 years, possibly. currently in [place] . Discussed taking PNV/ folic acid in preparation for (more content not included)... [facility] History of Past illness Narrative 05-09-2013 Note Date & Type Note Facility 05-09-2013 History of Past i llness Narrative Problem Noted Date Diagnosed Date Resolved Date Shortness of breath and chest pain 05/09/2013 12/28/2023 Overview: Episode of SOB on exertion with chest pain (sharp, midline anterior, 10/10), associated with diaphoresis on 05/08/13. Persistent SOB on exertion on morning of 05/09. DDx - SLE flare similar to 2010 with Pleural and pericardial effusion - Supported by CT, C3 and C4 (L) with elevated WSR and CRP - Community acquired Pneumonia - Potentially likely with small area of consolidation in JASON lung and febrile on ED presentation. -Pulmonary Embolism - No RF for VTE, CT demonstrated no clots. - ACS - ECG and Cardiac enzymes WNL, no RF Plan- - Cardiac enzymes - Inflammatory panel- dsDNA Abs pending - Rheumatology Consult - Echo - Continue Antibiotics - Continue steroids prednisone (40mg/day) - Pulm recs: - PFTs (Spirometry, Ling volumes and DLCO) today Fever 04/11/2011 12/28/2023 Overview: Initially concern for possible pneumonia Zosyn and Vancomycin were stopped Now afebrile documented as of this encounter (statuses as of 12/28/2023) [facility] Evaluation note Note Date & Type Note Facility Evaluation note Diagnosis Cervical high risk human papillomavirus (HPV) DNA test positive- Primary Papanicolaou smear of vagina with low grade squamous intraepithelial lesion (LGSIL) documented in this encounter [facility] Summary Purpose Family History No Family History Records Found Advance Directives No Advanced Directives Records Found Additional Source Comments Source Comments (unrecognize d section and content) In the event this informatio n is protected by the Federal Confidentiality of Alcohol and Drug Abuse Patient Records regulations: The Federal rules restrict any use of the information to criminally investigate or prosecute any alcohol or drug abuse patient.[facility] Reason for Visit (unrecogniz ed section and content) Reason Comments Colposcopy Specialty Diagnoses / Procedures Referred By Glenda wick Referred To Contact [facility] Diagnoses Low grade squamous intraepithelial lesion on cytologic smear of vagina (LGSIL) Cervical high risk HPV (human papillomavirus) test positive Procedures COLPOSCOPY COLPOSCOPY CERVIX BX CERVIX & ENDOCRV Lelo Kwok APRN.CNM [address] [place] [address] [facility] [address] [place] [address] Referral ID Status Reason Start Date Expiration Date V isits Requested Visits Authorized [id number] Closed Auto-Generate d Referral 11/15/2023 10/23/2024 1 1 Care Teams (unrecognized sec tion and content) Head Paper Tester Relationship Specialty Start Date End Date Ale Arroyo DO [address] [place] [place], [place] [id number] PCP - General Family Medicine 07/13/16 INFORMATION SOURCE (unrecogn ized section and content) DATE CREATED AUTHOR 12/29/2023 [facility] FOR RECORDS PERTAINING TO PATIENTS WHO ARE OR HAVE BEEN ENROLLED IN A CHEMICAL DEPENDENCY/SUBSTANCEABUSE PROGRAM, SOME INFORMATION MAY BE OMITTED. This clinical summary was aggregated from multiple sources. Caution should be exercised in using it in the provision of clinical care. This summary normalizes information from multiple sources, and as a consequence, information in this document may materially change the coding, format and clinical context of patient data. In addition, data may be omitted in some cases. CLINICAL DECISIONS SHOULD BE BASED ON THE PRIMARY CLINICAL RECORDS. [employer] provides no warranty or guarantee of the accuracy or completeness of information in this document.
== END | disposition home or self-care (01) ==
PROVIDERS: PCP Family Medicine; Referring Provider Internal Medicine Nephrology; Visit Provider Internal Medicine Nephrology
DX: R80.9 Proteinuria, unspecified (principal); M32.14 Glomerular disease in systemic lupus erythematosus
CPT/HCPCS: 87086; 87088; 87186

== ENCOUNTER → 2024-10-10 | Outpatient (CLI) | payer BC, SELFPAY ==
[2024-10-10 10:15] LABS: Hematocrit 37.1 % (37-47); Hemoglobin 11.5 g/dL (12.0-15.0); Mean Corpuscular Hgb 27.6 pg (27.0-32.0); Mean Platelet Vol. 11.2 fl (6.2-12.0); Platelet Count 250 K/mm3 (150-450); RBC Distribution Width CV 14.2 % (11.6-14.6); RBC Distribution Width SD 45.6 fl (35.1-43.9); Red Blood Count 4.17 M/mm3 (4.2-5.4); White Blood Count 2.5 K/mm3 (4.4-11.0)
[2024-10-10 10:29] LABS: Protein, Urine (Random) 107.6 mg/dL (<11.9); Protein:Creat Ratio 336 mg/g CRE (0-200)
[2024-10-10 11:05] LABS: Albumin, Serum 3.3 g/dL (3.2-5.0); BUN 13 mg/dL (7-18); Calcium,Total 8.1 mg/dL (8.5-10.1); Chloride 112 mmol/L (98-107); Creatinine, Serum 1.08 mg/dL (0.55-1.02); EST Glomerular Filtration Rate 61 mL/min (>60); Est Glom Filt Rate - Afr Amer 73 mL/min (>60); Glucose 82 mg/dL (74-106); Phosphorus 2.1 mg/dL (2.5-4.9); Potassium 3.9 mmol/L (3.5-5.1); Sodium Level 139 mmol/L (136-145)
== END | disposition home or self-care (01) ==
LOC: MTLAB 08:17
PROVIDERS: PCP Family Medicine; Referring Provider Internal Medicine Nephrology; Visit Provider Internal Medicine Nephrology
DX: M32.14 Glomerular disease in systemic lupus erythematosus (principal); D50.9 Iron deficiency anemia, unspecified; R80.9 Proteinuria, unspecified
CPT/HCPCS: 36415; 80069; 82570; 84156; 85027

== ENCOUNTER → 2024-11-05 | Outpatient (CLI) | payer BC, SELFPAY ==
[2024-11-05 10:27] LABS: Absolute Neutrophil Count 1.8 X10^3/uL (2.0-7.7); Basophil# 0.02 X10^3/uL; Basophil% 0.7 % (0-1); Eosinophil# 0.08 X10^3/uL; Eosinophils% 2.7 % (0-5); Hematocrit 34.3 % (37-47); Hemoglobin 10.7 g/dL (12.0-15.0); Lymphocyte % 23.9 % (19-41); Mean Corp Hgb Conc 31.2 g/dL (32-36); Mean Corpuscular Hgb 27.2 pg (27.0-32.0); Mean Corpuscular Volume 87.1 fL (81-99); Mean Platelet Vol. 10.4 fl (6.2-12.0); Monocyte# 0.34 X10^3/uL; Monocyte% 11.6 % (0-10); NRBC Flagged by Analyzer 0 % (0-5); Neutrophil # 1.78 X10^3/uL (2.7-7.7); Neutrophil % 60.8 % (47-70); Platelet Count 241 K/mm3 (150-450); RBC Distribution Width CV 14.2 % (11.6-14.6); RBC Distribution Width SD 45.5 fl (35.1-43.9); Red Blood Count 3.94 M/mm3 (4.2-5.4); White Blood Count 2.9 K/mm3 (4.4-11.0)
[2024-11-05 10:30] LABS: Color, Urine Yellow (Yellow); Glucose, Dipstick Normal (Normal); Ketone-Dipstick Negative (Negative); Leukocyte Esterase-Dipstick 25 /ul (Negative); Nitrite-Dipstick Negative (Negative); Occult Blood-Urine 25 /ul (Negative); Protein-Dipstick 30 mg/dl (Negative); Urine Bilirubin Dipstick Negative (Negative); Urine Clarity Sl. Cloudy (Clear); Urine Urobilinogen Normal (Normal)
[2024-11-05 10:42] LABS: Protein, Urine (Random) 50.9 mg/dL (<11.9); Protein:Creat Ratio 233 mg/g CRE (0-200)
[2024-11-05 10:55] LABS: ALB/GLOB Ratio 0.8 RATIO (0.9-2.4); AST(SGOT) 14 U/L (15-37); Alanine Aminotransfer ALT/SGPT 10 U/L (13-56); Albumin, Serum 2.9 g/dL (3.2-5.0); Alkaline Phosphatase 77 U/L (45-117); Anion Gap 4 (5-15); BUN 12 mg/dL (7-18); BUN/Creat Ratio 10.6 RATIO (10-20); Calcium,Total 8.2 mg/dL (8.5-10.1); Chloride 113 mmol/L (98-107); Creatinine, Serum 1.13 mg/dL (0.55-1.02); EST Glomerular Filtration Rate 57 mL/min (>60); Est Glom Filt Rate - Afr Amer 70 mL/min (>60); Globulin 3.7 g/dL (2.2-4.2); Glucose 82 mg/dL (74-106); Potassium 4.1 mmol/L (3.5-5.1); Protein, Total 6.6 g/dL (6.4-8.2); Sodium Level 140 mmol/L (136-145)
[2024-11-06 04:07] LABS: Complement C3 86 mg/dL (82-167)
[2024-11-06 17:06] LABS: Anti-dsDNA Ab 33 IU/mL (0-9)
== END | disposition home or self-care (01) ==
LOC: MTLAB 07:47
PROVIDERS: PCP Family Medicine; Referring Provider Internal Medicine Rheumatology; Visit Provider Internal Medicine Rheumatology
DX: M32.9 Systemic lupus erythematosus, unspecified (principal); Z79.52 Long term (current) use of systemic steroids

== ENCOUNTER → 2025-02-07 | Outpatient (CLI) | payer BC, SELFPAY ==
[2025-02-07 10:21] LABS: Absolute Lymphocyte Count 1.51 X10^3/uL (0.83-4.51); Absolute Neutrophil Count 2.7 X10^3/uL (2.0-7.7); Basophil# 0.02 X10^3/uL; Basophil% 0.4 % (0-1); Eosinophil# 0.11 X10^3/uL; Eosinophils% 2.3 % (0-5); Hematocrit 31.4 % (37-47); Hemoglobin 10.2 g/dL (12.0-15.0); Lymphocyte # 1.51 X10^3/ul (0.83-4.51); Lymphocyte % 31.1 % (19-41); Mean Corp Hgb Conc 32.5 g/dL (32-36); Mean Corpuscular Volume 86.3 fL (81-99); Mean Platelet Vol. 10.6 fl (6.2-12.0); Monocyte# 0.52 X10^3/uL; Monocyte% 10.7 % (0-10); NRBC Flagged by Analyzer 0 % (0-5); Neutrophil # 2.66 X10^3/uL (2.7-7.7); Neutrophil % 54.9 % (47-70); POSITIVE MORPHOLOGY YES; Platelet Count 356 K/mm3 (150-450); RBC Distribution Width CV 15.4 % (11.6-14.6); RBC Distribution Width SD 48.5 fl (35.1-43.9); Red Blood Count 3.64 M/mm3 (4.2-5.4); White Blood Count 4.9 K/mm3 (4.4-11.0)
[2025-02-07 10:26] LABS: Differential Indicated SCAN CRITERIA MET
[2025-02-07 10:34] LABS: AST(SGOT) 19 U/L (<=31); Alanine Aminotransfer ALT/SGPT 15 U/L (<=34); Albumin, Serum 3.4 g/dL (3.5-5.0); Alkaline Phosphatase 83 U/L (35-104); Anion Gap 9 (5-15); BUN 19 mg/dL (4-19); BUN/Creat Ratio 16.5 RATIO (10-20); Calcium,Total 8.6 mg/dL (7.6-11.0); Carbon Dioxide 22.6 mmol/L (21.0-32.0); Chloride 108 mmol/L (98-108); Creatinine, Serum 1.13 mg/dL (0.70-1.20); EST Glomerular Filtration Rate 64 (>60); Globulin 3.5 g/dL (2.2-4.2); Glucose 83 mg/dL (70-99); Potassium 4.2 mmol/L (3.3-5.1); Protein, Total 6.9 g/dL (5.9-8.4); Sodium Level 139 mmol/L (133-145); Total Bilirubin 0.29 mg/dL (0.00-1.30)
[2025-02-07 10:54] LABS: Atypical Lymphocyte 1+ %; Protein, Urine (Random) 22.3 mg/dL (0.0-12.0); Protein:Creat Ratio 162 mg/g CRE (0-200)
[2025-02-08 04:07] LABS: Complement C3 104 mg/dL (82-167)
[2025-02-08 16:40] LABS: Color, Urine Yellow (Yellow); Glucose, Dipstick Normal (Normal); Ketone-Dipstick Negative (Negative); Leukocyte Esterase-Dipstick 25 /ul (Negative); Nitrite-Dipstick Negative (Negative); Occult Blood-Urine Negative /ul (Negative); Protein-Dipstick 30 mg/dl (Negative); Specific Gravity, Urine 1.015 (1.002-1.030); Urine Bilirubin Dipstick Negative (Negative); Urine Clarity Clear (Clear); Urine Urobilinogen Normal (Normal)
[2025-02-12 14:08] LABS: Anti-dsDNA Ab 29 IU/mL (0-9)
== END | disposition home or self-care (01) ==
LOC: MTLAB 07:42
PROVIDERS: PCP Family Medicine; Referring Provider Internal Medicine Rheumatology; Visit Provider Internal Medicine Rheumatology
DX: M32.9 Systemic lupus erythematosus, unspecified (principal); I10 Essential (primary) hypertension; Z79.52 Long term (current) use of systemic steroids
CPT/HCPCS: 36415; 80053; 81002; 82570; 84156; 85025; 86160; 86225

== ENCOUNTER → 2025-03-20 | Outpatient (CLI) | payer BC, SELFPAY ==
[2025-03-20 17:50] LABS: Hematocrit 34.1 % (37-47); Hemoglobin 10.8 g/dL (12.0-15.0); Mean Corp Hgb Conc 31.7 g/dL (32-36); Mean Corpuscular Hgb 27.9 pg (27.0-32.0); Mean Corpuscular Volume 88.1 fL (81-99); Mean Platelet Vol. 10.7 fl (6.2-12.0); Platelet Count 230 K/mm3 (150-450); RBC Distribution Width SD 48.5 fl (35.1-43.9); Red Blood Count 3.87 M/mm3 (4.2-5.4); White Blood Count 3.2 K/mm3 (4.4-11.0)
[2025-03-20 18:16] LABS: Protein, Urine (Random) 16.6 mg/dL (0.0-12.0); Protein:Creat Ratio 152 mg/g CRE (0-200)
[2025-03-20 18:23] LABS: Albumin, Serum 3.7 g/dL (3.5-5.0); Anion Gap 12 (5-15); BUN 34 mg/dL (4-19); BUN/Creat Ratio 18.9 RATIO (10-20); Calcium,Total 8.6 mg/dL (7.6-11.0); Carbon Dioxide 12.3 mmol/L (21.0-32.0); Chloride 109 mmol/L (98-108); EST Glomerular Filtration Rate 37 (>60); Ferritin 232 ng/mL (22-378); Glucose 108 mg/dL (70-99); Iron 62 ug/dL (50-170); Iron Binding Capacity,Unsat 138 ug/dL (228-428); Phosphorus 3.1 mg/dL (2.7-4.5); Potassium 5.1 mmol/L (3.3-5.1); Sodium Level 133 mmol/L (133-145)
[2025-03-20 19:34] LABS: Iron Binding Capacity,Total 200 ug/dL (250-450)
== END | disposition home or self-care (01) ==
LOC: MTLAB 15:21
PROVIDERS: PCP Family Medicine; Referring Provider Internal Medicine Nephrology; Visit Provider Internal Medicine Nephrology
DX: D50.9 Iron deficiency anemia, unspecified (principal); M32.14 Glomerular disease in systemic lupus erythematosus; R80.9 Proteinuria, unspecified
CPT/HCPCS: 36415; 80069; 82570; 82728; 83540; 83550; 84156; 85027

== ENCOUNTER → 2025-03-21 | Outpatient (CLI) | payer BC, SELFPAY ==
[2025-03-21 16:38] LABS: ALB/GLOB Ratio 1.1 RATIO (0.9-2.4); AST(SGOT) 16 U/L (<=31); Alanine Aminotransfer ALT/SGPT 11 U/L (<=34); Albumin, Serum 3.9 g/dL (3.5-5.0); Alkaline Phosphatase 70 U/L (35-104); Anion Gap 10 (5-15); BUN 32 mg/dL (4-19); BUN/Creat Ratio 17.5 RATIO (10-20); Calcium,Total 8.7 mg/dL (7.6-11.0); Carbon Dioxide 16.9 mmol/L (21.0-32.0); Chloride 109 mmol/L (98-108); Creatinine, Serum 1.85 mg/dL (0.70-1.20); EST Glomerular Filtration Rate 36 (>60); Globulin 3.5 g/dL (2.2-4.2); Glucose 77 mg/dL (70-99); Potassium 5.5 mmol/L (3.3-5.1); Protein, Total 7.4 g/dL (5.9-8.4); Sodium Level 136 mmol/L (133-145)
== END | disposition home or self-care (01) ==
LOC: LAB 13:42
PROVIDERS: PCP Family Medicine; Referring Provider Internal Medicine Nephrology; Visit Provider Internal Medicine Nephrology
DX: M32.14 Glomerular disease in systemic lupus erythematosus (principal)
CPT/HCPCS: 36415; 80053

== ENCOUNTER → 2025-03-25 | Outpatient (CLI) | payer BC, SELFPAY ==
[2025-03-25 15:35] LABS: Anion Gap 10 (5-15); BUN 23 mg/dL (4-19); BUN/Creat Ratio 15.9 RATIO (10-20); Calcium,Total 8.7 mg/dL (7.6-11.0); Carbon Dioxide 13.7 mmol/L (21.0-32.0); Chloride 109 mmol/L (98-108); Creatinine, Serum 1.45 mg/dL (0.70-1.20); EST Glomerular Filtration Rate 48 (>60); Glucose 64 mg/dL (70-99); Sodium Level 133 mmol/L (133-145)
== END | disposition home or self-care (01) ==
LOC: LAB 13:24
PROVIDERS: PCP Family Medicine; Referring Provider Internal Medicine Nephrology; Visit Provider Internal Medicine Nephrology
DX: N17.9 Acute kidney failure, unspecified (principal)
CPT/HCPCS: 36415; 80048

== ENCOUNTER → 2025-04-08 | Outpatient (CLI) | payer BC, SELFPAY ==
[2025-04-08 16:25] LABS: Anion Gap 10 (5-15); BUN 19 mg/dL (4-19); BUN/Creat Ratio 15.8 RATIO (10-20); Calcium,Total 8.7 mg/dL (7.6-11.0); Carbon Dioxide 19.9 mmol/L (21.0-32.0); Chloride 106 mmol/L (98-108); Creatinine, Serum 1.18 mg/dL (0.70-1.20); EST Glomerular Filtration Rate 61 (>60); Glucose 69 mg/dL (70-99); Potassium 4.7 mmol/L (3.3-5.1); Sodium Level 137 mmol/L (133-145)
== END | disposition home or self-care (01) ==
LOC: MTLAB 13:23
PROVIDERS: PCP Family Medicine; Referring Provider Internal Medicine Nephrology; Visit Provider Internal Medicine Nephrology
DX: N17.9 Acute kidney failure, unspecified (principal)
CPT/HCPCS: 36415; 80048

== ENCOUNTER 2025-05-16 10:00 | Outpatient (RCR) | payer BC, SELFPAY ==
[2025-04-25 10:28] VITALS: BP 130/88; PULSE 71; RESP 18; TEMP 36.7
--- NOTE | 2025-04-25 13:55 | HP.PCM_ITS ---
History of Present Illness Date of Service: 04/25/25 Chief Complaint: Follow-up on a chin wound History of Wound: Ms. Arambula is a 39-year-old who presents to the wound center today due to reopening of a previously healed area. Last seen a few months ago. Current episode started 2 weeks ago. No known precipitating factor. Had been managing it at home however due to concern for increased drainage, presented to the wound center. Prior episodes have been associated with systemic lupus erythematosus flare however, she states that she has had no flare lately. Feels well/at her baseline. Currently on CellCept and Plaquenil for SLE management. No tobacco or alcohol abuse. No history of diabetes mellitus. In the past, had a viral culture which was positive however following antiviral medication, no significant improvement was noted per patient. [facility] Medical History (Updated 04/25/25 @ 14:[address] 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) SLE (systemic lupus erythematosus) HTN (hypertension) Home Medications Medication Instructions Recorded Last Taken Type hydroxychloroquine 200 mg tablet 200 mg PO BIDCM 11/0406/28/17 History lisinopril 2.5 mg tablet 2.5 mg PO QDAY 04/18/18 Unkn own History mycophenolate mofetil 250 mg 500 mg PO BID lupus 04/18 Unknown History capsule (CellCept) levonorgestrel (Mirena) 1 insert intrauterine ONCE 0 05/29/18 Unknown History belimumab 200 mg/mL subcutaneous 200 mg subcut QWEEK 0 02/24/22 Unknown History auto-injector (Benlysta) levofloxacin 500 mg tablet 500 mg PO DAILY 07/20/23 Un known History metronidazole 500 mg tablet 500 mg PO TID 07/20/23 Unk nown History valacyclovir 1 gram tablet 1,000 mg PO BID 02/01/24 Un known History (Valtrex) clindamycin 1 %-benzoyl peroxide 5 1 applic topical BI D #50 grams 03/29/24 Unknown Rx % topical gel Allergy/AdvReac Type Severity Reaction Status Date / Time No Known Allergies Allergy Verified 01/26/25 11:00 Family History Mother Diabetes Father Hypertension Other Thyroid disorder Surgical History History of mastopexy Social History Smoking Status: Never smoker alcohol intake: current alcohol intake frequency: holidays/special occasions only substance use type: does not use caffeine: Yes (rarely) what type of physical activity do you participate in: walking frequency: 1-2 times per week seatbelt use: always do you feel safe at home: Yes 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 [employer] Constitutional Constitutional: Denies anorexia, body ache(s), fatigue, fever(s), frequent falls, headache(s) or increased appetite Eyes Eyes: Denies acute decrease in peripheral vision, blindness, blind spots, change in eye color, change in vision, decreased night vision or diplopia ENT HEENT: Denies bleeding gums, change in voice, dysphagia, ear discharge, ear pain, epistaxis, facial pain, foreign body in nose or hearing loss Cardiovascular Cardiovascular: Denies abdominal bloating, abdominal edema, bluish discoloration of hand/feet, chest pain, chest pain at rest or chest pain with activity Respiratory/Chest Respiratory/Chest: Denies change in mental status, difficulty clearing secretions, dry cough, dusky skin, dyspnea, dyspnea on exertion or excessive phlegm production Gastrointestinal Gastrointestinal: Denies anorexia, belching, bloating, chewing difficulty, coffee ground emesis, constipation, cramping or early satiety Genitourinary Genitourinary: Denies abdominal discomfort, burning urination, contractions, difficulty urinating or flank pain Musculoskeletal Musculoskeletal: Denies deformity, difficulty walking, limited range of motion, loss of height or muscle cramps Integumentary Integumentary: Denies bleeding lesions, change in pigmentation, erythema, furuncle, hirsutism or jaundice Neurologic Neurologic: Denies abnormal hearing, abnormal movements, burning sensations, confusion, convulsions, disequilibrium, dizziness, focal weakness or frequent falls Psychiatric Psychiatric: Denies anhedonia, anxiety, auditory hallucinations, cognitive impairment, confusion, depression or homicidal ideation Endocrine Endocrinology: Denies change in body appearance, cold intolerance, deepening of the voice, excessive sweating, fatigue or increase in ring/shoe/hat size Hematologic/Lymphatic Hematologic/Lymphatic: Denies easy bleeding, easy bruising or lymphadenopathy Allergic/Immunologic Allergic/Immunologic: Denies itchy eyes, lip swelling, seasonal rhinorrhea, rhinitis, tongue swelling, urticaria or eczemia Vital Signs Vital Signs Vital Signs: 04/25/25 10:28 Temperature 98.1 F Temperature Source Temporal Pulse Rate 71 Respiratory Rate 18 Blood Pressure 130/88 H Blood Pressure Mean 102 Blood Pressure Source Monitor Blood Pressure Position Sitting Blood Pressure Location Left Arm Oxygen Delivery Method Room Air Physical Exam Const alert, oriented x3, no apparent distress and average body habitus General Appearance: cooperative and comfortable HEENT normocephalic and head/scalp atraumatic Head and Scalp: normal to inspection Eyes EOMs intact bilaterally General Eye: normal appearance of both eyes Neck full ROM and no lymphadenopathy General: normal visual inspection Resp normal respiratory effort and normal air movement Effort and Inspection: able to speak in complete sentences Cardio regular rate, regular rhythm, S1 normal heart sound and S2 normal heart sound GI non-distended Extremity normal to inspection and full ROM Skin Wounds: wounds noted size Size: See clinical note, bed with slough, no odor and surrounding erythema Neuro oriented x3, CN's II-XII intact bilaterally and moves all extremities Psych mental status grossly normal, thought process normal, cooperative and affect normal Debridement Note Debridement Note Wound debrided: Left chin Type of Debridement: Excisional debridement Anesthesia Used: 5% Lidocaine Gel Depth: Down to and including healthy tissue and in the subcutaneous layer Percentage of wound debrided: 100 Instrument Used: 5mm curette Tissue Removed: Slough and devitalized tissue Severity: Fat Layer Exposed Amount of bleeding with debridement: Mild Bleeding Controlled with: Pressure Patient tolerated procedure: Patient tolerated procedure well Post-Debridement Measurements and Additional Note: Post-Debridement Measurements/Treatment KRYSTINA - Nurse 1 - General Ulcer Assessment Start: 04/25/25 10:23 Freq: Status: Active Protocol: SANDRITA Activity Type Activity Date Activity User E-sign Co-sign Detail Recorded Client Recorded Date Recorded By Document 04/25/25 10:28 DS [id number] 04/25/25 10:29 DS Edit Result 04/25/25 10:28 DS (1) [id number] 04/25/25 10:31 DS (1) Temperature (97.8 F-99.1 F) => 98.1 F Temperature Source => Temporal Pulse Rate (60-100) => 71 Pulse Location => Monitor Respiratory Rate (12-18) => 18 Respiratory rate source => Observation Oxygen Delivery Method => Room Air Blood Pressure (90/60-120/80) => 130/88 H Blood Pressure Mean => 102 Source => Monitor Position => Sitting Blood Pressure Location => Left Arm Is Patient Pain Free? Yes => No chin - Description => Throbbing - Intensity => 2 - Duration (hours) => Chronic - Pain Behavior => No Change in => Behavior - Alleviating Factors/Interventions => None 04/25/25 10:28 - Today's Visit Information Type of service Initial Visit Arrival Mode Ambulatory Patient Identification Verified (Name & Yes ) Patient Requires Transmission-Based No Precautions Safety Precautions Fall Prevention Vital Signs Temperature (97.8 F-99.1 F) 98.1 F Temperature Source Temporal Pulse Rate (60-100) 71 Pulse Location Monitor Respiratory Rate (12-18) 18 Respiratory rate source Observation Oxygen Delivery Method Room Air Blood Pressure (90/60-120/80) 130/88 H Blood Pressure Mean 102 Source Monitor Position Sitting Blood Pressure Location Left Arm Pain Scale: 0-10 Numeric Is Patient Pain Free? No chin -Description Throbbing -Intensity 2 -Duration (hours) Chronic -Pain Behavior No Change in Behavior -Alleviating Factors/Interventions None Communication Assessment Preferred language Lao Transmission And Coordination Engineer Required No Able to Read Yes Able to Write Yes Right Hearing Abillity Normal Left Hearing Abillity Normal Visual Assistive Devices None Teaching Assessment Preferences Verbal,Written, Demonstration Barriers to Learning None Readiness To Learn Excellent Willingness to Engage in Self Management High Activies Readiness to Engage in Self Management High Activities Anxiety Level Calm Cooperation Cooperative Perception Coherent Interest in Health Problem Asks Questions Education Importance Acknowledges Need Does Patient Smoke tobacco or other No substances Is Patient Diabetic No Functional Assessment Recent Decline in Ability to Perform Denies Any Declines 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 Cultural/Rastafari Needs that may affect No Treatment Plan [facility] Nurse 1 - General Ulcer Measurement Start: 04/25/25 10:23 Freq: Status: Active Protocol: Activity Type Activity Date Activity User E-sign Co-sign Detail Recorded Client Recorded Date Recorded By Document 04/25/25 10:32 DS [id number] 04/25/25 10:39 DS 04/25/25 10:32 Wound Center Nurse 1 #3 Chin -Current Size (cm) - Length 0.1 -Current Size (cm) - Width 0.1 -Current Size (cm) - Depth 0.1 -Total Square Cm 0.01 -Date of Last Picture (Recall this 04/25/25 field) -Photo Taken Yes -Wound Margin Distinct, Outline Attached -Texture (Ashlee-wound Skin Appearance) Assessed -Moisture (Ashlee-wound Skin Appearance) Assessed -Color (Ashlee-wound Skin Appearance) Assessed -Temperature (Ashlee-wound Skin No Abnormality Appearance) (Pt Warm) -Tenderness on Palpation (Ashlee-wound Yes Skin Appearance) -Ulcer Cleansing Soap and Water -Anesthetic Used 5% Lidocaine Gel KRYSTINA - Nurse 2 - General Ulcer CM Notes Start: 04/25/25 10:23 Freq: Status: Active Protocol: Activity Type Activity Date Activity User E-sign Co-sign Detail Recorded Client Recorded Date Recorded By Document 04/25/25 10:53 [id number] 04/25/25 10:54 04/25/25 10:53 Wound Center Nurse 2 -Time 10:53 -Correct Patient Yes -Correct Side, Site, Position Yes -Correct Procedure Yes -Procedure Performed Yes -Type of Procedure Debridement -Tissue Removed Epidermis -Post Debridement (cm) - Length 0.8 -Post Debridement (cm) - Width 1.0 -Post Debridement (cm) - Depth 0.1 -Total Square (Post) (cm) 0.80 -Area of Debridement (cm) - Length 0.8 -Area of Debridement (cm) - Width 1.0 -Total Square (Area) (cm) 0.80 -Tunneling No -Undermining/Tunneling No -Circular Undermining No -Wound/Ulcer Outcome Not Healed -Ulcer Cleansing Rinsed/ Irrigated with Saline -Foul Odor after Cleansing No -Bleeding Controlled with Pressure -Treatment Response Procedure Tolerated Well -Debridement - Subq, 1st 20sq cm Yes Pain Scale: 0-10 Numeric Is Patient Pain Free? Yes KRYSTINA - Nurse 3 - General Ulcer D/C NN Start: 04/25/25 10:23 Freq: Status: Active Protocol: Activity Type Activity Date Activity User E-sign Co-sign Detail Recorded Client Recorded Date Recorded By Document 04/25/25 11:06 MI [id number] 04/25/25 11:06 MT 04/25/25 11:06 Wound Care Center Nurse 3 #3 Chin -Ulcer Cleansing Rinsed/ Irrigated with Saline -Primary Dressing Applied Promogran -Primary Dressing Covered/Secured with Dry Gauze, Secured with Tape -Promogran 1 Treatment Response Procedure Tolerated Well Pain Scale: 0-10 Numeric Is Patient Pain Free? Yes WC - Visit Discharge Discharge Condition Stable Ambulatory Status Ambulatory Transportation Private Auto Medication Reconcilliation completed & No provided to patient/care provider Clinical Summary of Care Provided Yes Charges/Coding Visit Charges Office Visits / Consults: [id number] OV L3 New 30min Procedures Integumentary [id number]: [id number] Toya subq tissue 20 sq cm/< Assessment/Plan Assessment/Plan (1) SLE (systemic lupus erythematosus): CODE(S): M32.9 - Systemic lupus erythematosus, unspecified (2) Personal history of immunosupression therapy: CODE(S): Z92.25 - Personal history of immunosuppression therapy (3) History of herpes simplex infection: CODE(S): Z86.19 - Personal history of other infectious and parasitic diseases PLAN: Plan Debridement done as documented above, procedure was well-tolerated. Concern for increased drainage/purulence and so cultures taken, will review. Most recently, had done well on Promogran will restart Promogran, cover with gauze. Change daily to twice daily as needed. Does not believe she did well in the past following viral treatment despite positive culture for herpes simplex. Will hold off oral antiviral at this time. Concern for delayed healing due to immu nosuppressive therapy. Optimize protein intake, vitamin C, D and zinc discussed, she voiced understanding. Her questions were answered, she was advised to let us know if she had any further questions or concerns. Follow-up in a week or sooner if needed. This note was generated with [employer] dictation software. It may contain incorrect words, spelling, and punctuation that were not noted in checking the note before signing.
--- NOTE | 2025-04-29 09:27 | WC ---
PHOTO 04/25/25 CHIN
--- NOTE | 2025-04-29 09:32 | WC ---
PHOTO 04/25/25 CHIN
[2025-05-16 10:24] VITALS: BP 122/79; PULSE 80; RESP 16; TEMP 36.9
--- NOTE | 2025-05-16 10:43 | PN.PCM_ITS ---
History of Present Illness Date of Service: 05/16/25 Chief Complaint: Chin Ulcer. History of Wound: Ms. Arambula is a 39-year-old who presents to the wound center today due to reopening of a previously healed area. Last seen a few months ago. Current episode started 2 weeks ago. No known precipitating factor. Had been managing it at home however due to concern for increased drainage, presented to the wound center. Prior episodes have been associated with systemic lupus erythematosus flare however, she states that she has had no flare lately. Feels well/at her baseline. Currently on CellCept and Plaquenil for SLE management. No tobacco or alcohol abuse. No history of diabetes mellitus. In the past, had a viral culture which was positive however following antiviral medication, no significant improvement was noted per patient. Progress of Wound: No new concerns reported at this time. Healed. Objective Data Objective Data Vital Signs: Vital Signs Temp Pulse Resp BP O2 Del Method 98.4 F 80 16 122/79 H Room Air 05/16/25 10:24 05/16/25 10:24 05/16/25 10:24 05/16/25 10:24 04/25/25 10:28 Oxygen Delivery Method Room Air Lab / Micro Data Micro: Microbiology 04/25/25 10:50 Wound - Face Gram Stain - Final 04/25/25 10:50 Wound - Face Wound Culture - Final Klebsiella aerogenes 04/25/25 10:50 Wound - Face Anaerobic Culture - Final Cutibacterium acnes Charges/Coding Visit Charges Office Visits / Consults: [id number] OV L3 Est 20min Physical Exam Const alert, oriented x3, no apparent distress and average body habitus General Appearance: cooperative and comfortable HEENT normocephalic and head/scalp atraumatic Head and Scalp: normal to inspection Eyes EOMs intact bilaterally General Eye: normal appearance of both eyes Neck full ROM General: normal visual inspection Resp normal respiratory effort Effort and Inspection: able to speak in complete sentences GI non-distended Extremity normal to inspection and full ROM Neuro oriented x3, CN's II-XII intact bilaterally and moves all extremities Psych mental status grossly normal, thought process normal, cooperative and affect normal Debridement Note Debridement Note Post-Debridement Measurements and Additional Note: Post-Debridement Measurements/Treatment KRYSTINA - Nurse 1 - General Ulcer Assessment Start: 04/25/25 10:23 Freq: Status: Active Protocol: [email or web address] Activity Type Activity Date Activity User E-sign Co-sign Detail Recorded Client Recorded Date Recorded By Document 04/25/25 10:28 DS [id number] 04/25/25 10:29 DS Edit Result 04/25/25 10:28 DS (1) [id number] 04/25/25 10:31 DS Document 05/16/25 10:24 CP [id number] 05/16/25 10:25 CP (1) Temperature (97.8 F-99.1 F) => 98.1 F Temperature Source => Temporal Pulse Rate (60-100) => 71 Pulse Location => Monitor Respiratory Rate (12-18) => 18 Respiratory rate source => Observation Oxygen Delivery Method => Room Air Blood Pressure (90/60-120/80) => 130/88 H Blood Pressure Mean (mm Hg) => 102 Source => Monitor Position => Sitting Blood Pressure Location => Left Arm Is Patient Pain Free? 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 ) Arrival Mode Ambulatory Ambulatory Patient Identification Verified (Name & Yes ) Patient Requires Transmission-Based No Precautions Safety Precautions Fall Prevention Vital Signs Temperature (97.8 F-99.1 F) 98.1 F 98.4 F Temperature Source Temporal Temporal Pulse Rate (60-100) 71 80 Pulse Location Monitor Monitor Respiratory Rate (12-18) 18 16 Respiratory rate source Observation Observation Oxygen Delivery Method Room Air Blood Pressure (90/60-120/80) 130/88 H 122/79 H Blood Pressure Mean (mm Hg) 102 93 Source Monitor Monitor Position Sitting Sitting Blood Pressure Location Left Arm Left Arm History Since Last Visit- (Skip if this is Patient's initial visit) Have you changed medications since your No last visit? Any new allergies or adverse reactions No Had a fall/change in ADL's that may No increase risk of falls Signs or symptoms of abuse and/or No neglect since last visit Have you been in the hospital since your No last visit? Has dressing in place as prescribed Yes Has compression in place as prescribed N/A Has offloadiing in place as prescribed No Experienced any changes in pain level or No management Pain Scale: 0-10 Numeric Is Patient Pain Free? No Yes chin -Description Throbbing -Intensity 2 -Duration (hours) Chronic -Pain Behavior No Change in Behavior -Alleviating Factors/Interventions None Communication Assessment Preferred language Japanese First Beater Required No Able to Read Yes Able to Write Yes Right Hearing Abillity Normal Left Hearing Abillity Normal Visual Assistive Devices None Teaching Assessment Preferences Verbal,Written, Demonstration Barriers to Learning None Readiness To Learn Excellent Willingness to Engage in Self Management High Activies Readiness to Engage in Self Management High Activities Anxiety Level Calm Cooperation Cooperative Perception Coherent Interest in Health Problem Asks Questions Education Importance Acknowledges Need Does Patient Smoke tobacco or other No substances Is Patient Diabetic No Functional Assessment Recent Decline in Ability to Perform Denies Any Declines Culture/Cheondoism/[employer] Cultural/Cheondoism Needs that may affect No Treatment Plan WC - Nurse 1 - General Ulcer Measurement Start: 04/25/25 10:23 Freq: Status: Active Protocol: Activity Type Activity Date Activity User E-sign Co-sign Detail Recorded Client Recorded Date Recorded By Document 04/25/25 10:32 DS [id number] 04/25/25 10:39 DS Document 05/16/25 10:24 CP [id number] 05/16/25 10:25 CP 04/25/25 05/16/25 10:32 10:24 Wound Center Nurse 1 #3 Chin -Current Size (cm) - Length 0.1 0 -Current Size (cm) - Width 0.1 0 -Current Size (cm) - Depth 0.1 0 -Total Square Cm 0.01 0 -Date of Last Picture (Recall this 04/25/25 field) -Photo Taken Yes Yes -Epithelialization Large 67-100% -Wound Margin Distinct, Outline Attached -Texture (Ashlee-wound Skin Appearance) Assessed -Moisture (Ashlee-wound Skin Appearance) Assessed -Color (Ashlee-wound Skin Appearance) Assessed -Temperature (Ashlee-wound Skin No Abnormality Appearance) (Pt Warm) -Tenderness on Palpation (Ashlee-wound Yes No Skin Appearance) -Ulcer Cleansing Soap and Water -Foul Odor after Cleansing No -Anesthetic Used 5% Lidocaine Gel WC - Nurse 2 - General Ulcer CM Notes Start: 04/25/25 10:23 Freq: Status: Active Protocol: Activity Type Activity Date Activity User E-sign Co-sign Detail Recorded Client Recorded Date Recorded By Document 04/25/25 10:53 [id number] 04/25/25 10:54 Document 05/16/25 10:29 DS [id number] 05/16/25 10:29 DS 04/25/25 05/16/25 10:53 10:29 Wound Center Nurse 2 #3 Chin -Time 10:53 10:29 -Correct Patient Yes Yes -Correct Side, Site, Position Yes Yes -Correct Procedure Yes -Procedure Performed Yes No -Type of Procedure Debridement -Tissue Removed Epidermis -Post Debridement (cm) - Length 0.8 -Post Debridement (cm) - Width 1.0 -Post Debridement (cm) - Depth 0.1 -Total Square (Post) (cm) 0.80 -Area of Debridement (cm) - Length 0.8 -Area of Debridement (cm) - Width 1.0 -Total Square (Area) (cm) 0.80 -Tunneling No -Undermining/Tunneling No -Circular Undermining No -Wound/Ulcer Outcome Not Healed Healed- Epithelialized -Ulcer Cleansing Rinsed/ Irrigated with Saline -Foul Odor after Cleansing No -Bleeding Controlled with Pressure -Treatment Response Procedure Tolerated Well -Debridement - Subq, 1st 20sq cm Yes Pain Scale: 0-10 Numeric Is Patient Pain Free? Yes Yes - Nurse 3 - General Ulcer D/C NN Start: 04/25/25 10:23 Freq: Status: Active Protocol: Activity Type Activity Date Activity User E-sign Co-sign Detail Recorded Client Recorded Date Recorded By Document 04/25/25 11:06 ID [id number] 04/25/25 11:06 ID Document 05/16/25 10:29 DS [id number] 05/16/25 10:30 DS 04/25/25 05/16/25 11:06 10:29 Wound Care Center Nurse 3 #3 Chin -Ulcer Cleansing Rinsed/ Irrigated with Saline -Primary Dressing Applied Promogran -Primary Dressing Covered/Secured with Dry Gauze, Secured with Tape -Promogran 1 -Wound Comment(s) no dressing pt d/c - healed Treatment Response Procedure Tolerated Well Pain Scale: 0-10 Numeric Is Patient Pain Free? Yes Yes - Visit Discharge Discharge Condition Stable Stable Ambulatory Status Ambulatory Ambulatory Transportation Private Auto Private Auto Medication Reconcilliation completed & No provided to patient/care provider Clinical Summary of Care Provided Yes Assessment/Plan Assessment/Plan (1) SLE (systemic lupus erythematosus): CODE(S): M32.9 - Systemic lupus erythematosus, unspecified (2) Personal history of immunosupression therapy: CODE(S): Z92.25 - Personal history of immunosuppression therapy (3) History of herpes simplex infection: CODE(S): Z86.19 - Personal history of other infectious and parasitic diseases (4) Skin ulcer of face with fat layer exposed: CODE(S): L98.492 - Non-pressure chronic ulcer of skin of other sites with fat layer exposed PLAN: Plan Healed. No new concerns reported at this time. She states that she has been applying a cream for pigmentation prescribed by her cell pourer. She confirms that this is not a steroid cream. Continue follow-up with dermatology. Continue adequate moisturizing. Call with any concerns. Discharge from the wound center This note was generated with [email or web address] dictation software. It may contain incorrect words, spelling, and punctuation that were not noted in checking the note before signing.
--- NOTE | 2025-05-16 15:28 | WC ---
PHOTO-CHIN 05/16/25
== END 2025-05-23 14:52 | disposition home or self-care (01) ==
LOC: WC 10:00
PROVIDERS: PCP Family Medicine; Referring Provider Family Medicine; Visit Provider Internal Medicine
DX: M32.9 Systemic lupus erythematosus, unspecified (principal); L98.492 Non-pressure chronic ulcer of skin of other sites with fat layer exposed; I10 Essential (primary) hypertension; Z86.19 Personal history of other infectious and parasitic diseases; Z92.25 Personal history of immunosuppression therapy
CPT/HCPCS: 11042; 87070; 87075; 87077; 87186; 87205; 99213; G0463

== ENCOUNTER → 2025-05-16 | Outpatient (CLI) | payer BC, SELFPAY ==
[2025-05-16 15:34] LABS: Hematocrit 31.4 % (37-47); Hemoglobin 9.9 g/dL (12.0-15.0); Immature Granulocytes Count 0.010 X10^3/uL (0.0-0.0); Mean Corp Hgb Conc 31.5 g/dL (32-36); Mean Corpuscular Volume 87.5 fL (81-99); Mean Platelet Vol. 10.7 fl (6.2-12.0); NRBC Flagged by Analyzer 0 % (0-5); POSITIVE DIFFERENTIAL YES; Platelet Count 262 K/mm3 (150-450); RBC Distribution Width CV 15.1 % (11.6-14.6); RBC Distribution Width SD 48.3 fl (35.1-43.9); Red Blood Count 3.59 M/mm3 (4.2-5.4); White Blood Count 3.1 K/mm3 (4.4-11.0)
[2025-05-16 15:47] LABS: Creatinine, Urine (random) 128.00 mg/dL (28.00-217.00); Protein, Urine (Random) 29.0 mg/dL (0.0-12.0); Protein:Creat Ratio 227 mg/g CRE (0-200)
[2025-05-16 15:57] LABS: AST(SGOT) 19 U/L (<=31); Alanine Aminotransfer ALT/SGPT 9 U/L (<=34); Albumin, Serum 3.6 g/dL (3.5-5.0); Alkaline Phosphatase 70 U/L (35-104); Anion Gap 10 (5-15); BUN 12 mg/dL (4-19); BUN/Creat Ratio 10.0 RATIO (10-20); Calcium,Total 8.6 mg/dL (7.6-11.0); Carbon Dioxide 19.3 mmol/L (21.0-32.0); Chloride 108 mmol/L (98-108); Globulin 3.2 g/dL (2.2-4.2); Glucose 86 mg/dL (70-99); Potassium 4.9 mmol/L (3.3-5.1)
[2025-05-16 16:00] LABS: Color, Urine Straw (Yellow); Glucose, Dipstick Normal (Normal); Ketone-Dipstick Negative (Negative); Leukocyte Esterase-Dipstick 100 /ul (Negative); Nitrite-Dipstick Negative (Negative); Occult Blood-Urine Negative /ul (Negative); Protein-Dipstick 30 mg/dl (Negative); Specific Gravity, Urine 1.010 (1.002-1.030); Urine Bilirubin Dipstick Negative (Negative)
[2025-05-20 14:08] LABS: Anti-dsDNA Ab 48 IU/mL (0-9)
== END | disposition home or self-care (01) ==
LOC: MTLAB 11:18
PROVIDERS: Internal Medicine Rheumatology; PCP Family Medicine; Referring Provider Internal Medicine Nephrology; Visit Provider Internal Medicine Nephrology
DX: M32.9 Systemic lupus erythematosus, unspecified (principal); I10 Essential (primary) hypertension; Z79.52 Long term (current) use of systemic steroids; N17.9 Acute kidney failure, unspecified
CPT/HCPCS: 36415; 80053; 81002; 82570; 84156; 85025; 86160; 86225

== ENCOUNTER → 2025-05-28 | Outpatient (CLI) | payer BC, SELFPAY ==
[2025-05-28 19:07] LABS: Ferritin 199 ng/mL (22-378); Iron 74 ug/dL (50-170); Iron Binding Capacity,Unsat 113 ug/dL (228-428)
[2025-05-28 19:56] LABS: Iron Binding Capacity,Total 187 ug/dL (250-450)
== END | disposition home or self-care (01) ==
LOC: MTLAB 15:30
PROVIDERS: PCP Family Medicine; Referring Provider Internal Medicine Rheumatology; Visit Provider Internal Medicine Rheumatology
DX: M32.9 Systemic lupus erythematosus, unspecified (principal); I10 Essential (primary) hypertension; Z79.52 Long term (current) use of systemic steroids
CPT/HCPCS: 36415; 82728; 83540; 83550

== ENCOUNTER → 2025-06-05 | Outpatient (CLI) | payer BC, SELFPAY | END | disposition home or self-care (01) | LOC: BFHLAB 09:15 | PROVIDERS: PCP Family Medicine; Visit Provider Family Medicine | DX: R63.5 Abnormal weight gain (principal); R73.01 Impaired fasting glucose | CPT/HCPCS: 36415; 83036; 84439; 84443 ==

== ENCOUNTER → 2025-07-15 | Outpatient (CLI) | payer BC, SELFPAY ==
[2025-07-15 16:44] LABS: Albumin, Serum 3.7 g/dL (3.5-5.0); Anion Gap 10 (5-15); BUN 13 mg/dL (4-19); BUN/Creat Ratio 11.1 RATIO (10-20); Calcium,Total 8.5 mg/dL (7.6-11.0); Carbon Dioxide 19.5 mmol/L (21.0-32.0); Chloride 109 mmol/L (98-108); Glucose 85 mg/dL (70-99); Potassium 4.0 mmol/L (3.3-5.1)
[2025-07-15 18:44] LABS: Creatinine, Urine (random) 291.00 mg/dL (28.00-217.00); Protein, Urine (Random) 169.0 mg/dL (0.0-12.0); Protein:Creat Ratio 581 mg/g CRE (0-200)
== END | disposition home or self-care (01) ==
LOC: MTLAB 12:33
PROVIDERS: PCP Family Medicine; Referring Provider Internal Medicine Nephrology; Visit Provider Internal Medicine Nephrology
DX: M32.14 Glomerular disease in systemic lupus erythematosus (principal)
CPT/HCPCS: 36415; 80069; 82570; 84156

== ENCOUNTER → 2025-08-12 | Outpatient (CLI) | payer BC, SELFPAY ==
[2025-08-12 18:13] LABS: Hematocrit 33.4 % (37-47); Hemoglobin 10.6 g/dL (12.0-15.0); Immature Granulocytes Count 0.010 X10^3/uL (0.0-0.0); Mean Corp Hgb Conc 31.7 g/dL (32-36); Mean Corpuscular Volume 86.1 fL (81-99); Mean Platelet Vol. 11.3 fl (6.2-12.0); NRBC Flagged by Analyzer 0 % (0-5); Platelet Count 244 K/mm3 (150-450); RBC Distribution Width CV 14.2 % (11.6-14.6); RBC Distribution Width SD 44.0 fl (35.1-43.9); Red Blood Count 3.88 M/mm3 (4.2-5.4); White Blood Count 4.0 K/mm3 (4.4-11.0)
[2025-08-12 18:32] LABS: Creatinine, Urine (random) 171.00 mg/dL (28.00-217.00); Protein, Urine (Random) 63.9 mg/dL (0.0-12.0); Protein:Creat Ratio 374 mg/g CRE (0-200)
[2025-08-12 18:36] LABS: AST(SGOT) 14 U/L (<=31); Alanine Aminotransfer ALT/SGPT 6 U/L (<=34); Albumin, Serum 3.9 g/dL (3.5-5.0); Alkaline Phosphatase 67 U/L (35-104); Anion Gap 10 (5-15); BUN 16 mg/dL (4-19); BUN/Creat Ratio 13.9 RATIO (10-20); Calcium,Total 8.6 mg/dL (7.6-11.0); Carbon Dioxide 21.3 mmol/L (21.0-32.0); Chloride 107 mmol/L (98-108); Globulin 3.0 g/dL (2.2-4.2); Glucose 75 mg/dL (70-99); Potassium 3.8 mmol/L (3.3-5.1)
[2025-08-12 20:40] LABS: Color, Urine Yellow (Yellow); Glucose, Dipstick Normal (Normal); Ketone-Dipstick Negative (Negative); Leukocyte Esterase-Dipstick 25 /ul (Negative); Nitrite-Dipstick Positive (Negative); Occult Blood-Urine 10 /ul (Negative); Protein-Dipstick 100 mg/dl (Negative); Specific Gravity, Urine 1.015 (1.002-1.030)
[2025-08-12 20:49] LABS: Urine Bilirubin Dipstick 3 mg/dL (Negative)
[2025-08-14 14:09] LABS: ANTINUCLEAR ANTIBODIES DIRECT Positive (Negative)
== END | disposition home or self-care (01) ==
LOC: MTLAB 15:18
PROVIDERS: PCP Family Medicine; Referring Provider Internal Medicine Rheumatology; Visit Provider Internal Medicine Rheumatology
DX: M32.9 Systemic lupus erythematosus, unspecified (principal); I10 Essential (primary) hypertension; Z79.52 Long term (current) use of systemic steroids
CPT/HCPCS: 36415; 80053; 81002; 82570; 84156; 85025; 86038; 86160

== ENCOUNTER → 2025-08-14 | Outpatient (CLI) | payer BC, SELFPAY | END | disposition home or self-care (01) | LOC: LABSPEC 15:24 | PROVIDERS: PCP Family Medicine; Referring Provider Family Medicine; Visit Provider Family Medicine | DX: M54.9 Dorsalgia, unspecified (principal) | CPT/HCPCS: 87077; 87086; 87088; 87186 ==

== ENCOUNTER → 2025-09-30 | Outpatient (CLI) | payer BC, SELFPAY ==
[2025-09-30 17:50] LABS: Hematocrit 32.1 % (37-47); Hemoglobin 10.3 g/dL (12.0-15.0); Mean Corp Hgb Conc 32.1 g/dL (32-36); Mean Corpuscular Volume 85.4 fL (81-99); Mean Platelet Vol. 11.3 fl (6.2-12.0); Platelet Count 216 K/mm3 (150-450); RBC Distribution Width CV 15.6 % (11.6-14.6); RBC Distribution Width SD 48.4 fl (35.1-43.9); Red Blood Count 3.76 M/mm3 (4.2-5.4); White Blood Count 4.4 K/mm3 (4.4-11.0)
[2025-09-30 18:31] LABS: Albumin, Serum 3.5 g/dL (3.5-5.0); Anion Gap 8 (5-15); BUN 14 mg/dL (4-19); BUN/Creat Ratio 13.0 RATIO (10-20); Calcium,Total 8.4 mg/dL (7.6-11.0); Carbon Dioxide 21.1 mmol/L (21.0-32.0); Chloride 110 mmol/L (98-108); Glucose 87 mg/dL (70-99); Potassium 3.9 mmol/L (3.3-5.1)
[2025-09-30 18:37] LABS: Creatinine, Urine (random) 215.00 mg/dL (28.00-217.00); Protein, Urine (Random) 52.6 mg/dL (0.0-12.0); Protein:Creat Ratio 245 mg/g CRE (0-200)
== END | disposition home or self-care (01) ==
LOC: MTLAB 14:35
PROVIDERS: PCP Family Medicine; Referring Provider Internal Medicine Nephrology; Visit Provider Internal Medicine Nephrology
DX: D50.9 Iron deficiency anemia, unspecified (principal); N17.9 Acute kidney failure, unspecified
CPT/HCPCS: 36415; 80069; 82570; 84156; 85027